=== PATIENT | male | born 1935 | race Caucasian/White ===

== ENCOUNTER 2016-08-15 08:12 | Emergency (ER) | payer MEDICARE, BC ==
[~2016-08-15] VITALS: Ht 165.1 cm; Wt 68.0 kg
[~2016-08-15 08:12] MED LIST: TIMO5DRO31 OP; VANC1FRO IV
[2016-08-15] MEDS ORDERED: IV NS 0.9% 1,000 ML ONE (08:37)
[2016-08-15] MEDS ORDERED: IV SET PRIMARY 1 EA INFUS.SET MC ONE (08:37)
[2016-08-15] MEDS ORDERED: IV NS 0.9% 1,000 ML BAG IV ONE (09:00)
[2016-08-15 09:02] LABS: BASOPHILS % (AUTO) 0.1 % (0.0-2.0); DIFF TOTAL % 100 %; EOSINOPHILS % (AUTO) 0.8 % (0.0-6.0); HEMATOCRIT 36 % (39-51); HEMOGLOBIN 12.2 g/dL (13.5-17.5); LYMPHOCYTES # (AUTO) 0.5 /CMM (0.8-4.8); LYMPHOCYTES % (AUTO) 7.6 % (20.0-44.0); MEAN CORPUSCULAR HEMOGLOBIN 32 PG (26.0-33.0); MEAN CORPUSCULAR HGB CONC 34 g/dl (31.0-36.0); MEAN CORPUSCULAR VOLUME 94 fL (80-96); MONOCYTES # (AUTO) 0.2 /CMM (0.1-1.30); MONOCYTES % (AUTO) 3.8 % (2.0-12.0); NEUTROPHILS # (AUTO) 5.6 /CMM (1.8-8.9); NEUTROPHILS % (AUTO) 87.7 % (43.0-81.0); PLATELET COUNT (AUTO) 146 /CMM (150-450); RED BLOOD CELL COUNT(AUTO) 3.88 MIL/uL (4.5-6.0); WHITE BLOOD COUNT (AUTO) 6.4 K/uL (4.3-11.0)
[2016-08-15 09:22] LABS: INR 1.01 (0.87-1.13); PROTHROMBIN TIME 10.9 SECS (9.5-12.7)
[2016-08-15] MEDS ORDERED: ACETAMINOPHEN 325 MG TABLET ONE (09:36)
[2016-08-15 09:42] LABS: ANION GAP 11 (5-14); CALCIUM, SERUM 8.6 mg/dL (8.5-10.1); CARBON DIOXIDE 26 mmol/L (21-32); CHLORIDE 107 mmol/L (98-107); CREATININE 1.2 mg/dL (0.6-1.3); GLUCOSE 101 mg/dL (74-106); POTASSIUM 4.4 mmol/L (3.5-5.1); SODIUM SERUM 139 mmol/L (136-145); UREA NITROGEN, BLOOD 17 mg/dL (7-18)
[2016-08-15 09:46] LABS: ADD UA MICROSCOPIC NO; KETONES,URINE Negative (NEGATIVE); LEUKOCYTE ESTERASE ,URINE Negative (NEGATIVE)
[2016-08-15 09:48] LABS: ALANINE AMINOTRANSFERASE 24 U/L (12-78); ALBUMIN 3.4 g/dL (3.4-5.0); ASPARTATE AMINOTRANSFERASE 26 U/L (15-37); BILIRUBIN,DIRECT 0.1 mg/dL (0.0-0.2); INDIRECT BILIRUBIN 0.9 mg/dL (0.0-1.1); TOTAL PROTEIN, SERUM 6.6 g/dL (6.4-8.2)
[2016-08-15 09:50] LABS: TROPONIN I < 0.017 ng/mL (0.00-0.056)
[2016-08-15] MEDS ORDERED: ACETAMINOPHEN 325 MG TABLET PO ONE (10:00)
[2016-08-15 10:16] VITALS: BP 178/80
== END 2016-08-15 10:18 | disposition home or self-care (01) ==
LOC: ER 08:15
DX: J06.9 Acute upper respiratory infection, unspecified (principal); H40.9 Unspecified glaucoma; Z88.6 Allergy status to analgesic agent; Z88.1 Allergy status to other antibiotic agents; Z88.2 Allergy status to sulfonamides; Z88.8 Allergy status to other drugs, medicaments and biological substances; R79.1 Abnormal coagulation profile
CPT/HCPCS: 36415; 71010; 80048; 80076; 81001; 83605; 84484; 85025; 85730; 87040 ×2; 87086; 93005; 96360; 99285; A4606; J7030; 81000-TC; Z7610

== ENCOUNTER 2017-04-19 16:31 | Emergency (ER) | payer MEDICARE, BC ==
[~2017-04-19] VITALS: Ht 172.7 cm; Wt 80.7 kg
[~2017-04-19 16:31] MED LIST changes: +TIMO5DRO31 EACHEYE; -TIMO5DRO31 OP
--- NOTE | 2017-04-19 17:00 | NUR ---
BIB C/O BILATERAL LOWER EXTREMITIES EDEMA X 2 WEEKS, ABDOMINAL PAIN AND DIARRHEA. SEEN BY MD FOR EVAL. PT REPORTS THAT HE WAS RECENTLY ON ABX. AT BS. SAFETY AND COMFORT MEASURES PROVIDED. WILL MONITOR.
--- NOTE | 2017-04-19 17:15 | NUR ---
IV ACCESS STARTED. BLOOD DRAWN FOR LABS.
[2017-04-19 17:33] LABS: BASOPHILS % (AUTO) 0.3 % (0.0-2.0); EOSINOPHILS # (AUTO) 0.1 /CMM (0.0-0.7); EOSINOPHILS % (AUTO) 1.2 % (0.0-6.0); HEMATOCRIT 33 % (39-51); HEMOGLOBIN 11.4 g/dL (13.5-17.5); LYMPHOCYTES # (AUTO) 0.7 /CMM (0.8-4.8); LYMPHOCYTES % (AUTO) 17.2 % (20.0-44.0); MEAN CORPUSCULAR HEMOGLOBIN 31 PG (26.0-33.0); MEAN CORPUSCULAR HGB CONC 35 g/dl (31.0-36.0); MEAN CORPUSCULAR VOLUME 90 fL (80-96); MONOCYTES # (AUTO) 0.3 /CMM (0.1-1.30); MONOCYTES % (AUTO) 7.1 % (2.0-12.0); NEUTROPHILS # (AUTO) 3.2 /CMM (1.8-8.9); NEUTROPHILS % (AUTO) 74.2 % (43.0-81.0); PLATELET COUNT (AUTO) 226 /CMM (150-450); RDW COEFFICIENT OF VARIATION 15.7 (11.5-15.0); RED BLOOD CELL COUNT(AUTO) 3.63 MIL/uL (4.5-6.0); WHITE BLOOD COUNT (AUTO) 4.3 K/uL (4.3-11.0)
[2017-04-19 17:36] LABS: APPEARANCE,URINE CLEAR (CLEAR); BILIRUBIN,URINE NEGATIVE (NEGATIVE); BLOOD, URINE NEGATIVE Ery/uL (NEGATIVE); COLOR,URINE YELLOW (YELLOW); KETONES,URINE NEGATIVE (NEGATIVE); LEUKOCYTE ESTERASE ,URINE NEGATIVE (NEGATIVE); NITRITE, URINE NEGATIVE (NEGATIVE); PROTEIN,URINE NEGATIVE (NEGATIVE); UGLUCOSE NEGATIVE (NEGATIVE); UROBILINOGEN,URINE 0.2 EU/dL (0.2)
[2017-04-19 17:43] LABS: CALCIUM, SERUM 8.5 mg/dL (8.5-10.1); CARBON DIOXIDE 24 mmol/L (21-32); CHLORIDE 108 mmol/L (98-107); CREATININE 1.3 mg/dL (0.6-1.3); GLUCOSE 95 mg/dL (74-106); SODIUM SERUM 141 mmol/L (136-145); UREA NITROGEN, BLOOD 19 mg/dL (7-18)
[2017-04-19 17:50] LABS: TROPONIN I < 0.017 ng/mL (0.00-0.056)
[2017-04-19 17:57] LABS: ALANINE AMINOTRANSFERASE 35 U/L (12-78); ALKALINE PHOSPHATASE 48 U/L (46-116); ASPARTATE AMINOTRANSFERASE 33 U/L (15-37); B-TYPE NATRIURETIC PEPTIDE 1132 PG/ML (0-125); BILIRUBIN,DIRECT 0.2 mg/dL (0.0-0.2); BILIRUBIN,TOTAL 0.8 mg/dL (0.2-1.0); TOTAL PROTEIN, SERUM 6.3 g/dL (6.4-8.2)
[2017-04-19 18:12] LABS: INR 1.09 (0.87-1.13); PROTHROMBIN TIME 11.3 SECS (9.5-12.7)
--- NOTE | 2017-04-19 18:51 | NUR ---
Patient discharged to home in stable condition. Written and verbal after care instructions given. Patient verbalizes understanding of instruction.IV removed. Catheter intact and site benign. Pressure and 4x4 applied to site. No bleeding noted.
[2017-04-19 18:52] VITALS: BP 130/88
== END 2017-04-19 18:52 | disposition home or self-care (01) ==
LOC: ER 16:33
DX: R60.0 Localized edema (principal); I10 Essential (primary) hypertension; R53.1 Weakness; Z88.6 Allergy status to analgesic agent; Z88.5 Allergy status to narcotic agent; Z88.2 Allergy status to sulfonamides; Z88.0 Allergy status to penicillin; Z88.8 Allergy status to other drugs, medicaments and biological substances
CPT/HCPCS: 36415; 71010; 80048; 80076; 81001; 83880; 84484; 85025; 85730; 93005; 99285; A4606; 81000-TC; Z7610

== ENCOUNTER 2017-04-28 10:31 | Outpatient (CLI) | payer MEDICARE, BC ==
[~2017-04-28 10:31] MED LIST changes: -VANC1FRO IV
== END 2017-04-28 23:59 | disposition home or self-care (01) ==
LOC: CT 10:31
DX: R42 Dizziness and giddiness (principal)
CPT/HCPCS: 70450-TC

== ENCOUNTER 2017-06-24 19:18 | Emergency (ER) | payer MEDICARE, BC ==
[~2017-06-24] VITALS: Ht 172.7 cm; Wt 80.7 kg
--- NOTE | 2017-06-24 19:42 | NUR ---
PT RECEIVED FROM HOME WITH FAMILY C/O ABDOMINAL PAIN X2 HOURS LLQ 5/10 ON MOVEMENT. NO SOB NOTED AT THIS TIME. PT IS A/O X4 VSS NAD.
[2017-06-24] MEDS ORDERED: HYDROMORPHONE INJ 2 MG/ML DISP.SYRIN ONE (19:57)
[2017-06-24 19:58] LABS: BASOPHILS % (AUTO) 0.5 % (0.0-2.0); EOSINOPHILS # (AUTO) 0.1 /CMM (0.0-0.7); EOSINOPHILS % (AUTO) 2.6 % (0.0-6.0); HEMATOCRIT 32 % (39-51); HEMOGLOBIN 10.7 g/dL (13.5-17.5); LYMPHOCYTES # (AUTO) 0.9 /CMM (0.8-4.8); LYMPHOCYTES % (AUTO) 24.2 % (20.0-44.0); MEAN CORPUSCULAR HEMOGLOBIN 31 PG (26.0-33.0); MEAN CORPUSCULAR HGB CONC 34 g/dl (31.0-36.0); MEAN CORPUSCULAR VOLUME 93 fL (80-96); MONOCYTES # (AUTO) 0.4 /CMM (0.1-1.30); MONOCYTES % (AUTO) 10.4 % (2.0-12.0); NEUTROPHILS # (AUTO) 2.2 /CMM (1.8-8.9); NEUTROPHILS % (AUTO) 62.3 % (43.0-81.0); PLATELET COUNT (AUTO) 152 /CMM (150-450); RDW COEFFICIENT OF VARIATION 13.9 (11.5-15.0); RED BLOOD CELL COUNT(AUTO) 3.41 MIL/uL (4.5-6.0); WHITE BLOOD COUNT (AUTO) 3.6 K/uL (4.3-11.0)
[2017-06-24] MEDS ORDERED: ONDANSETRON HCL/PF 4 MG/2 ML VIAL ONE (19:58)
[2017-06-24] MEDS ORDERED: ONDANSETRON HCL/PF 4 MG/2 ML VIAL IVP ONE (20:00)
[2017-06-24] MEDS ORDERED: IV NS 0.9% 500 ML BAG IV ONE (20:00)
[2017-06-24] MEDS ORDERED: HYDROMORPHONE 1 MG/1 ML DISP.SYRIN IV ONE (20:00)
[2017-06-24 20:13] LABS: CALCIUM, SERUM 9.4 mg/dL (8.5-10.1); CARBON DIOXIDE 28 mmol/L (21-32); CHLORIDE 106 mmol/L (98-107); CREATININE 1.2 mg/dL (0.6-1.3); GLUCOSE 115 mg/dL (74-106); POTASSIUM 4.2 mmol/L (3.5-5.1); SODIUM SERUM 139 mmol/L (136-145); UREA NITROGEN, BLOOD 21 mg/dL (7-18)
[2017-06-24 20:15] LABS: INR 0.97 (0.87-1.13); PROTHROMBIN TIME 10.1 SECS (9.5-12.7)
[2017-06-24 20:20] LABS: ALANINE AMINOTRANSFERASE 23 U/L (12-78); ALBUMIN 3.8 g/dL (3.4-5.0); ALKALINE PHOSPHATASE 71 U/L (46-116); ASPARTATE AMINOTRANSFERASE 26 U/L (15-37); BILIRUBIN,DIRECT 0.2 mg/dL (0.0-0.2); BILIRUBIN,TOTAL 0.9 mg/dL (0.2-1.0); LIPASE 167 U/L (73-393); TOTAL PROTEIN, SERUM 7.4 g/dL (6.4-8.2)
[2017-06-24] MEDS ORDERED: HYDROCODONE/APAP 5/325MG 1 EACH TABLET PO ONE (21:00)
--- NOTE | 2017-06-24 21:00 | NUR ---
PT IN STABLE CONDITION. PASSED WALKING TEST
[2017-06-24] MEDS ORDERED: HYDROCODONE/APAP 5/325MG 1 EACH TABLET ONE (21:05)
--- NOTE | 2017-06-24 21:13 | NUR ---
D/C PAPERWORK GIVEN FOR D/C
[2017-06-24 21:14] VITALS: BP 174/79
== END 2017-06-24 21:19 | disposition home or self-care (01) ==
LOC: ER 19:23
DX: R10.32 Left lower quadrant pain (principal); H40.9 Unspecified glaucoma; Z88.0 Allergy status to penicillin; Z88.1 Allergy status to other antibiotic agents; Z88.2 Allergy status to sulfonamides; Z88.8 Allergy status to other drugs, medicaments and biological substances
CPT/HCPCS: 36415; 74176; 80048; 80076; 83690; 85025; 85730; 96361; 96374; 96375; 99285; A4606; J1170; J2405; J7040; Z7610

== ENCOUNTER 2017-07-30 16:14 | Inpatient (IN) | payer MEDICARE, BC ==
[~2017-07-30] VITALS: Ht 172.7 cm; Wt 79.4 kg
--- NOTE | 2017-07-30 16:53 | NUR ---
PT TO ED ROOM 04. BILATERAL LOWER EXTREMITY SWELLING WITH PAIN TO L LEG. FLU SYMPTOMS, COUGH, CONGESTION, FEVER X 4 DAYS. CHANGED TO GOWN. SIDE RAILS UP. HOB ELEVATED. CONNECTED TO MONITOR. AWAITING EVALUATION BY ER PROVIDER.
[2017-07-30] MEDS ORDERED: VANCOMYCIN 1 GM in IV D5W 250 ML IV ONE (17:00)
--- NOTE | 2017-07-30 17:00 | NUR ---
R A CG 18 IV STARTED. BLOOD TESTS DRAWN AND SEND TO LAB.
[2017-07-30 17:11] LABS: BASOPHILS % (AUTO) 0.5 % (0.0-2.0); EOSINOPHILS # (AUTO) 0.1 /CMM (0.0-0.7); EOSINOPHILS % (AUTO) 2.2 % (0.0-6.0); HEMATOCRIT 31 % (39-51); HEMOGLOBIN 10.6 g/dL (13.5-17.5); LYMPHOCYTES # (AUTO) 0.5 /CMM (0.8-4.8); LYMPHOCYTES % (AUTO) 12.2 % (20.0-44.0); MEAN CORPUSCULAR HEMOGLOBIN 31 PG (26.0-33.0); MEAN CORPUSCULAR HGB CONC 34 g/dl (31.0-36.0); MEAN CORPUSCULAR VOLUME 90 fL (80-96); MONOCYTES # (AUTO) 0.4 /CMM (0.1-1.30); MONOCYTES % (AUTO) 9.8 % (2.0-12.0); NEUTROPHILS # (AUTO) 3.4 /CMM (1.8-8.9); NEUTROPHILS % (AUTO) 75.3 % (43.0-81.0); PLATELET COUNT (AUTO) 168 /CMM (150-450); RDW COEFFICIENT OF VARIATION 13.3 (11.5-15.0); RED BLOOD CELL COUNT(AUTO) 3.41 MIL/uL (4.5-6.0); WHITE BLOOD COUNT (AUTO) 4.4 K/uL (4.3-11.0)
[2017-07-30 17:27] LABS: CALCIUM, SERUM 9.1 mg/dL (8.5-10.1); CARBON DIOXIDE 26 mmol/L (21-32); CHLORIDE 102 mmol/L (98-107); CREATININE 1.2 mg/dL (0.6-1.3); GLUCOSE 110 mg/dL (74-106); POTASSIUM 4.2 mmol/L (3.5-5.1); SODIUM SERUM 135 mmol/L (136-145); UREA NITROGEN, BLOOD 19 mg/dL (7-18)
[2017-07-30 17:37] LABS: ALANINE AMINOTRANSFERASE 28 U/L (12-78); ALBUMIN 3.4 g/dL (3.4-5.0); ALKALINE PHOSPHATASE 70 U/L (46-116); ASPARTATE AMINOTRANSFERASE 24 U/L (15-37); B-TYPE NATRIURETIC PEPTIDE 812 PG/ML (0-125); BILIRUBIN,DIRECT 0.3 mg/dL (0.0-0.2); TOTAL PROTEIN, SERUM 7.5 g/dL (6.4-8.2)
[2017-07-30] MEDS ORDERED: PRED1DRO RIGHTEYE (17:41)
--- NOTE | 2017-07-30 18:46 | NUR ---
REPORT GIVEN TO 3W CHARGE Adilson KAMARA. PATIENT WILL GO TO ROOM 327-2 MS AFTER 1914 (BED IS NOT AVAILABLE YET).
--- NOTE | 2017-07-30 19:06 | NUR ---
Patient is resting comfortably in bed with eyes closed. Easily aroused. VSS
[2017-07-30] MEDS ORDERED: IV NS 0.9% 1,000 ML IV PRN (19:21)
--- NOTE | 2017-07-30 19:25 | NUR ---
EXPERIMENTAL DISPLAY BUILDER NOTE: RECEIVE PT FROM [facility] [employer] [facility], A/OX3. STABLE, NO ACUTE DISTRESS NOTED. BREATHING EVEN AND UNLABORED, NO SOB NOTED. BED LOCKED AND IN LOWEST POSITION, CALL LIGHT IN REACH. WILL CONTINUE TO MONITOR.
[2017-07-30 19:30] VITALS: BP 173/85
[2017-07-30] MEDS ORDERED: ZOLPIDEM TARTRATE 5 MG TABLET PO PRN (19:30)
[2017-07-30] MEDS ORDERED: HYDROCODONE/APAP 5/325MG 1 EACH TABLET PO PRN (19:30)
[2017-07-30] MEDS ORDERED: ONDANSETRON HCL/PF 4 MG/2 ML VIAL IVP PRN (19:30)
[2017-07-30] MEDS ORDERED: MAG HYDROX/AL HYDROX/SIMETH 30 ML UDC PO PRN (19:30)
[2017-07-30] MEDS ORDERED: MAGNESIUM HYDROXIDE 30 ML UDC PO PRN (19:30)
[2017-07-30] MEDS ORDERED: Z GUARD REMEDY 2 OZ OINT TP PRN (19:30)
[2017-07-30] MEDS ORDERED: ACETAMINOPHEN 325 MG TABLET PO PRN (19:30)
--- NOTE | 2017-07-30 19:37 | NUR ---
TRANSFERRED PATIENT TO [facility]. NO INCIDENT NOTED.
[2017-07-30 20:00] VITALS: BP 173/85
[2017-07-30] MEDS ORDERED: CLONIDINE HCL 0.1 MG TABLET PO ONE (20:10)
[2017-07-30] MEDS ORDERED: FEE PK DOSING 1 MIN EA MC ONE (20:30)
[2017-07-30] MEDS: TIMOLOL 0.5% SOLN OPHTH 5 ML BOTTLE EACHEYE SCH (20:53)
[2017-07-30] MEDS: ENOXAPARIN SODIUM 40 MG/0.4 ML DISP.SYRIN SQ SCH (20:53)
[2017-07-30] MEDS: prednisoLONE ACET 1% OPHT DROP 5 ML BOTTLE RIGHTEYE SCH (21:15)
[2017-07-30 21:30] VITALS: BP 148/77
--- NOTE | 2017-07-30 22:00 | NUR ---
PT REFUSED LOVENOX NON ADMINISTRATION DESPITE EXPLAINING RISKS AND BENEFITS OFFERED 3 TIMES PT STILL REFUSED DR. HATFIELD MADE AWARE. PT A/OX 4
[2017-07-31] VITALS: BP_SYST 155; BP_SYST 163; BP_DIAS 74; BP_DIAS 76
[2017-07-31 04:00] VITALS: BP 129/67
[2017-07-31] MEDS ORDERED: VANCOMYCIN 1 GM VIAL ONE (05:35)
[2017-07-31] MEDS: VANCOMYCIN HCL 0.75 GM in IV D5W 250 ML IV SCH ×2 (05:42→17:57)
--- NOTE | 2017-07-31 06:24 | NUR ---
MS RN CLOSING NOTES PT COMFORTABLY ASLEEP AND EASILY AWAKEN, TOLERATING ROOM AIR 02 SAT 99% IN STABLE CONDITION. NOT IN FORM OF DISTRESS, RESPIRATION EVEN AND UNLABORED. KEPT CLEAN AND DRY AND COMFORTABLE, ALL NURSING CARE RENDERED. NEEDS ATTENDED AND ANTICIPATED, FREQUENT VISUAL CHECK DONE FOR SAFETY EVERY 2 HOURS. NO COMPLAINS OF PAIN. ON LOW BED AT ALL TIMES TO ENSURE SAFETY. SAFE HAZARD FREE ENVIRONMENT PROVIDED. CALL LIGHT WITHIN EASY TO REACH. WILL ENDORSE NEXT SHIFT CONTINUITY OF CARE Addendum: 07/31/17 at 0625 by DARYL MANCERA RN ON TELE [id number]
--- NOTE | 2017-07-31 08:00 | NUR ---
ROOM SERVICE SERVER OPENING NOTES. PT RECEIVED A&0X3 AWAKE AND RESTING LOW SEMI FOWLERS. PT REPORTING SOME SOD. HOB ELEVATED AND O2 APPLIED VIA NC AT 2LPM, SAO2 WNL, LUNGS AUSCULTATED CLEAR. PT REPORTING MINOR GENERALIZED PAIN. PT WITH IVC AT R AC G#18 INTACT AND SALINE FLUSH PATENT. PT UNHAPPY WITH IVC AND BLOOD DRAWS R/T HARD STICK AND POSTURAL IVC. PT BED IN LOWEST LOCKED POSITION WITH HANDRAILSX2 AND CALL FULLER WITHIN REACH. PT BRIEFED ON TODAY'S POC AND IS WITHOUT CONCERN OR COMPLAINT AT THIS TIME.
[2017-07-31 08:46] LABS: BASOPHILS % (AUTO) 0.5 % (0.0-2.0); EOSINOPHILS # (AUTO) 0.1 /CMM (0.0-0.7); EOSINOPHILS % (AUTO) 2.2 % (0.0-6.0); HEMATOCRIT 31 % (39-51); HEMOGLOBIN 10.2 g/dL (13.5-17.5); LYMPHOCYTES # (AUTO) 0.6 /CMM (0.8-4.8); LYMPHOCYTES % (AUTO) 13.6 % (20.0-44.0); MEAN CORPUSCULAR HEMOGLOBIN 31 PG (26.0-33.0); MEAN CORPUSCULAR HGB CONC 34 g/dl (31.0-36.0); MEAN CORPUSCULAR VOLUME 93 fL (80-96); MONOCYTES # (AUTO) 0.5 /CMM (0.1-1.30); MONOCYTES % (AUTO) 10.9 % (2.0-12.0); NEUTROPHILS # (AUTO) 3.3 /CMM (1.8-8.9); NEUTROPHILS % (AUTO) 72.8 % (43.0-81.0); PLATELET COUNT (AUTO) 168 /CMM (150-450); RDW COEFFICIENT OF VARIATION 14.1 (11.5-15.0); RED BLOOD CELL COUNT(AUTO) 3.29 MIL/uL (4.5-6.0); WHITE BLOOD COUNT (AUTO) 4.5 K/uL (4.3-11.0)
[2017-07-31 08:48] VITALS: BP 155/81
[2017-07-31] MEDS: TIMOLOL 0.5% SOLN OPHTH 5 ML BOTTLE EACHEYE SCH ×2 (08:59→21:12)
[2017-07-31] MEDS ORDERED: FUROSEMIDE 40 MG/4 ML VIAL IV SCH (09:00)
[2017-07-31 09:08] LABS: CARBON DIOXIDE 24 mmol/L (21-32); CHLORIDE 103 mmol/L (98-107); CREATININE 1.2 mg/dL (0.6-1.3); GLUCOSE 101 mg/dL (74-106); MAGNESIUM 2.3 mg/dL (1.8-2.4); PHOSPHORUS 4.2 mg/dL (2.5-4.9); POTASSIUM 4.6 mmol/L (3.5-5.1); SODIUM SERUM 138 mmol/L (136-145); UREA NITROGEN, BLOOD 16 mg/dL (7-18)
--- NOTE | 2017-07-31 09:48 | NUR ---
MSRN NOTES. TELE D/C PER .
[2017-07-31 10:07] LABS: CHOLESTEROL 132 mg/dL (<200); HDL CHOLESTEROL 30 mg/dL (40-60); LDL 90 mg/dL (0-99); TRIGLYCERIDES 90 mg/dL (30-150)
[2017-07-31 16:08] VITALS: BP 156/81
--- NOTE | 2017-07-31 18:52 | NUR ---
MSRN CLOSING NOTES. PT REMAINS A&0X3, PT TOLERATING ROOM AIR AND DENIES PAIN. PT WITH IVC AT L AC INTACT AND OPERATIONAL, IVC POSTURAL. PT WITH MIDLINE ORDER PENDING BUT PT PLANNING TO LEAVE AMA IN AM. BED IN LOWEST LOCKED POSITION WITH HANDRAILSX2 AND CALL FULLER WITHIN REACH. ALL DAY NURSE DUTIES ATTENDED TO. PT WITHOUT CONCERN OR COMPLAINT AT THIS TIME. WILL ENDORSE TO NIGHT NURSE.
--- NOTE | 2017-07-31 19:00 | NUR ---
MS RN NOTE: RECEIVE PT IN BED, A/OX3. STABLE, NO ACUTE DISTRESS NOTED. BREATHING EVEN AND UNLABORED, NO SOB NOTED. BED LOCKED AND IN LOWEST POSITION, CALL LIGHT IN REACH. WILL CONTINUE TO MONITOR.
[2017-07-31 20:00] VITALS: BP_SYST 156; BP_SYST 160; BP_DIAS 74; BP_DIAS 86
[2017-07-31] MEDS: ENOXAPARIN SODIUM 40 MG/0.4 ML DISP.SYRIN SQ SCH (21:00)
[2017-07-31] MEDS: prednisoLONE ACET 1% OPHT DROP 5 ML BOTTLE RIGHTEYE SCH (21:12)
--- NOTE | 2017-07-31 22:37 | NUR ---
PT REFUSED LOVENOX NON ADMINISTRATION DESPITE EXPLAINING RISKS AND BENEFITS OFFERED 3 TIMES PT STILL REFUSED MD DATA CONVERSION OPERATOR MADE AWARE
[2017-08-01 04:51] VITALS: BP 151/74
[2017-08-01 05:48] LABS: BASOPHILS % (AUTO) 0.5 % (0.0-2.0); EOSINOPHILS # (AUTO) 0.1 /CMM (0.0-0.7); EOSINOPHILS % (AUTO) 1.9 % (0.0-6.0); HEMATOCRIT 33 % (39-51); HEMOGLOBIN 11.3 g/dL (13.5-17.5); LYMPHOCYTES # (AUTO) 0.8 /CMM (0.8-4.8); LYMPHOCYTES % (AUTO) 12.9 % (20.0-44.0); MEAN CORPUSCULAR HEMOGLOBIN 31 PG (26.0-33.0); MEAN CORPUSCULAR HGB CONC 34 g/dl (31.0-36.0); MEAN CORPUSCULAR VOLUME 92 fL (80-96); MONOCYTES # (AUTO) 0.7 /CMM (0.1-1.30); MONOCYTES % (AUTO) 11.1 % (2.0-12.0); NEUTROPHILS # (AUTO) 4.3 /CMM (1.8-8.9); NEUTROPHILS % (AUTO) 73.6 % (43.0-81.0); PLATELET COUNT (AUTO) 219 /CMM (150-450); RDW COEFFICIENT OF VARIATION 14.2 (11.5-15.0); RED BLOOD CELL COUNT(AUTO) 3.63 MIL/uL (4.5-6.0); WHITE BLOOD COUNT (AUTO) 5.9 K/uL (4.3-11.0)
[2017-08-01 06:07] LABS: ALANINE AMINOTRANSFERASE 24 U/L (12-78); ALBUMIN 3.1 g/dL (3.4-5.0); ALKALINE PHOSPHATASE 67 U/L (46-116); ASPARTATE AMINOTRANSFERASE 23 U/L (15-37); BILIRUBIN,TOTAL 0.8 mg/dL (0.2-1.0); CALCIUM, SERUM 8.9 mg/dL (8.5-10.1); CARBON DIOXIDE 27 mmol/L (21-32); CHLORIDE 104 mmol/L (98-107); CREATININE 1.3 mg/dL (0.6-1.3); GLUCOSE 101 mg/dL (74-106); MAGNESIUM 2.1 mg/dL (1.8-2.4); PHOSPHORUS 3.9 mg/dL (2.5-4.9); SODIUM SERUM 141 mmol/L (136-145); TOTAL PROTEIN, SERUM 7.3 g/dL (6.4-8.2); UREA NITROGEN, BLOOD 18 mg/dL (7-18)
[2017-08-01 06:11] LABS: VANCOMYCIN,TROUGH 14 ug/ml (12-20)
[2017-08-01] MEDS: VANCOMYCIN HCL 0.75 GM in IV D5W 250 ML IV SCH (06:17)
--- NOTE | 2017-08-01 06:30 | NUR ---
MS RN CLOSING NOTES PT COMFORTABLY ASLEEP AND EASILY AWAKEN, 98% R.A IN STABLE CONDITION. NOT IN FORM OF DISTRESS, RESPIRATION EVEN AND UNLABORED. KEPT CLEAN AND DRY AND COMFORTABLE, ALL NURSING CARE RENDERED. NEEDS ATTENDED AND ANTICIPATED, FREQUENT VISUAL CHECK DONE FOR SAFETY EVERY 2 HOURS. NO COMPLAINS OF PAIN. ON LOW BED AT ALL TIMES TO ENSURE SAFETY. SAFE HAZARD FREE ENVIRONMENT PROVIDED. CALL LIGHT WITHIN EASY TO REACH. WILL ENDORSE NEXT SHIFT CONTINUITY OF CARE
--- NOTE | 2017-08-01 07:43 | NUR ---
MS RN OPENING NOTE RECEIVED BEDSIDE SBAR REPORT ON THE PATIENT. PATIENT IS A/O X3, AWAKE AND RESPONSIVE. DENIES PAIN/DISCOMFORT AT THIS TIME. CHEST IS RISING EQUALLY BILATERALLY. SPO2 99% ON RA. PATIENT IS IN BED. BED IS LOCKED, IN LOWEST POSITION, SIDE RAILS UP X3, BED ALARM IS ON. CALL LIGHT WITHIN REACH. EDUCATED THE PATIENT TO CALL FOR ASSISTANCE USING THE CALL LIGHT. ALL NEEDS ARE MET AT THIS TIME. WILL CONTINUE TO ASSESS/MONITOR THROUGHOUT THE SHIFT.
[2017-08-01 08:00] VITALS: BP 138/74
[2017-08-01 08:33] LABS: IRON, SERUM 27 ug/dl (50-175); TOTAL IRON BINDING CAPACITY 231 ug/dl (250-450)
[2017-08-01] MEDS: TIMOLOL 0.5% SOLN OPHTH 5 ML BOTTLE EACHEYE SCH (08:58)
--- NOTE | 2017-08-01 08:58 | NUR ---
PATIENT REFUSED LASIX AND KDUR. RISKS AND BENEFITS DISCUSSED. PATIENT REFUSED STATING " I DONT WANT TO GO TO BATHROOM ALL THE TIME, I DONT WANT TO USE THE URINAL, I WANT TO GO HOME".
--- NOTE | 2017-08-01 08:59 | NUR ---
PATIENT REPORTED BURNING SENSATION AT THE IV SITE. IV REMOVED. NO S/S OF INFILTRATION. OCLUSSIVE DRESSING APPLIED. PATIENT TOLERATED PROCEDURE WELL. PATIENT REFUSED INSERTING A NEW IV. WILL INFORM
[2017-08-01] MEDS ORDERED: FUROSEMIDE 40 MG TABLET PO SCH (09:00)
[2017-08-01] MEDS ORDERED: POTASSIUM CHLORIDE 20 MEQ TAB.PRT.SR PO SCH (09:00)
--- NOTE | 2017-08-01 09:05 | NUR ---
DR BOTELLO INFORMED PATIENT HAS NO IV ACCESS. PATIENT REFUSED REINSERTION OF A NEW IV LINE. PATIENT WILL BE DISCHARGED TODAY TO GO HOME. NO NEW IV ACCESS REQUIRED AT THIS TIME.
[2017-08-01 09:57] LABS: FERRITIN 274 ng/mL (8-388)
[2017-08-01] MEDS ORDERED: SULF1TAB48 PO (11:58)
[2017-08-01] MEDS ORDERED: LEVO750T21 GT (11:59)
--- NOTE | 2017-08-01 12:19 | NUR ---
DISCHARGE ORDER RECEIVED. DISCHARGE PAPERWORK COMPLETED AND HANDED TO THE PATIENT. DISCHARGE EDUCATION PROVIDED VIA TEACH BACK METHOD. PATIENT WAS ABLE TO VERBALIZED FULL UNDERSTANDING OF DISCHARGE INSTRUCTIONS. BLE PITTING EDEMA PRESENT. PICTURE TAKEN AND PLACED THE CHART. PATIENT DENIES PAIN/DISCOMFORT. APO2 98% ON RA. VS WNL. AMBULATORY. NO IV ACCESS. AMBULATORY . PRESENTS WITH STEADY GAIT. ALL BELONGINGS ARE ACCOUNTED FOR. PATIENT IS TO LEAVING THE HOSPITAL VIA PRIVATE CAR.
--- NOTE | 2017-08-01 12:49 | NUR ---
PATIENT LEFT THE UNIT IN STABLE CONDITION.
== END 2017-08-01 12:30 | disposition home health service (06) | DRG 602 ==
LOC: ER 16:19 → TELE 18:52 → MED 07-31 09:13
PROVIDERS: ADMIT Internal Medicine; ATTEND Internal Medicine
DX: L03.116 Cellulitis of left lower limb (principal); N17.0 Acute kidney failure with tubular necrosis; I50.32 Chronic diastolic (congestive) heart failure; E87.1 Hypo-osmolality and hyponatremia; L03.115 Cellulitis of right lower limb; D63.8 Anemia in other chronic diseases classified elsewhere; E88.09 Other disorders of plasma-protein metabolism, not elsewhere classified; Z87.891 Personal history of nicotine dependence; I11.0 Hypertensive heart disease with heart failure
CPT/HCPCS: 36415; 71045-TC; 80048-TC; 80053-TC; 80061-TC; 80076-TC; 80202-TC; 82728-TC; 83540-TC; 83605-TC; 83735-TC; 83880; 84100-TC; 84484-TC; 85025-TC; 85730-TC; 87040-TC; 87081-TC; 93307-TC; 93970-TC; 94799-TC; A4606; J1940; J3370; J7030; J7060; Z7610

== ENCOUNTER 2017-08-04 08:52 | Outpatient (CLI) | payer MEDICARE, BC ==
[~2017-08-04 08:52] MED LIST changes: +LEVO750T21 GT; +PRED1DRO RIGHTEYE
== END 2017-08-04 23:59 | disposition home or self-care (01) ==
LOC: RAD 08:52
DX: J98.11 Atelectasis (principal); J90 Pleural effusion, not elsewhere classified; I10 Essential (primary) hypertension
CPT/HCPCS: 71046

== ENCOUNTER 2017-08-06 10:03 | Inpatient (IN) | payer MEDICARE, BC ==
[~2017-08-06] VITALS: Ht 172.7 cm; Wt 81.0 kg
--- NOTE | 2017-08-06 10:07 | NUR ---
AAOX3, BB : SOB C 2 DAYS, SEVERE TODAY. NON-RADIATING CHEST PAIN. RESP IS SLIGHTLY LABORED. SKIN IS WARM AND DRY. PLACED ON THE MONITOR. DR ESPINO AT BS FOR EVAL.
[2017-08-06] MEDS ORDERED: NITROGLYCERIN PACKET 1 GM PACKET TD ONE (10:30)
[2017-08-06] MEDS ORDERED: FUROSEMIDE 40 MG/4 ML VIAL IV ONE (10:30)
[2017-08-06] MEDS ORDERED: KETO5DRO83 RIGHTEYE (10:32)
[2017-08-06] MEDS ORDERED: CLIN300C11 PO (10:32)
[2017-08-06] MEDS ORDERED: FUROSEMIDE 40 MG/4 ML VIAL ONE (10:37)
[2017-08-06] MEDS ORDERED: NITROGLYCERIN PACKET 1 GM PACKET ONE ×2 (10:38→10:45)
[2017-08-06 10:46] LABS: BASOPHILS % (AUTO) 0.3 % (0.0-2.0); EOSINOPHILS # (AUTO) 0.1 /CMM (0.0-0.7); EOSINOPHILS % (AUTO) 1.1 % (0.0-6.0); HEMATOCRIT 28 % (39-51); HEMOGLOBIN 9.5 g/dL (13.5-17.5); LYMPHOCYTES # (AUTO) 0.4 /CMM (0.8-4.8); LYMPHOCYTES % (AUTO) 7.8 % (20.0-44.0); MEAN CORPUSCULAR HEMOGLOBIN 30 PG (26.0-33.0); MEAN CORPUSCULAR HGB CONC 34 g/dl (31.0-36.0); MEAN CORPUSCULAR VOLUME 89 fL (80-96); MONOCYTES # (AUTO) 0.2 /CMM (0.1-1.30); MONOCYTES % (AUTO) 4.9 % (2.0-12.0); NEUTROPHILS # (AUTO) 3.9 /CMM (1.8-8.9); NEUTROPHILS % (AUTO) 85.9 % (43.0-81.0); PLATELET COUNT (AUTO) 239 /CMM (150-450); RDW COEFFICIENT OF VARIATION 12.9 (11.5-15.0); RED BLOOD CELL COUNT(AUTO) 3.17 MIL/uL (4.5-6.0); WHITE BLOOD COUNT (AUTO) 4.6 K/uL (4.3-11.0)
[2017-08-06 10:57] LABS: CALCIUM, SERUM 8.7 mg/dL (8.5-10.1); CARBON DIOXIDE 25 mmol/L (21-32); CHLORIDE 96 mmol/L (98-107); CREATININE 1.2 mg/dL (0.6-1.3); GLUCOSE 112 mg/dL (74-106); POTASSIUM 4.5 mmol/L (3.5-5.1); SODIUM SERUM 128 mmol/L (136-145); UREA NITROGEN, BLOOD 18 mg/dL (7-18)
[2017-08-06 11:01] LABS: INR 1.06 (0.85-1.15)
[2017-08-06 11:05] LABS: TROPONIN I < 0.017 ng/mL (0.00-0.056)
[2017-08-06 11:07] LABS: APPEARANCE,URINE Clear (CLEAR); BILIRUBIN,URINE Negative (NEGATIVE); BLOOD, URINE Negative Ery/uL (NEGATIVE); COLOR,URINE Yellow (YELLOW); KETONES,URINE Negative (NEGATIVE); LEUKOCYTE ESTERASE ,URINE Negative (NEGATIVE); NITRITE, URINE Negative (NEGATIVE); PROTEIN,URINE Negative (NEGATIVE); UGLUCOSE Negative (NEGATIVE); UROBILINOGEN,URINE 0.2 EU/dL (0.2)
[2017-08-06 11:09] LABS: ALANINE AMINOTRANSFERASE 17 U/L (12-78); ALBUMIN 2.7 g/dL (3.4-5.0); ALKALINE PHOSPHATASE 65 U/L (46-116); ASPARTATE AMINOTRANSFERASE 21 U/L (15-37); B-TYPE NATRIURETIC PEPTIDE 551 PG/ML (0-125); BILIRUBIN,DIRECT 0.2 mg/dL (0.0-0.2); BILIRUBIN,TOTAL 0.7 mg/dL (0.2-1.0); TOTAL PROTEIN, SERUM 6.9 g/dL (6.4-8.2)
--- NOTE | 2017-08-06 11:45 | NUR ---
TELE 328-2
[2017-08-06] MEDS ORDERED: IOHEXOL-350 100 ML VIAL IV ONE (11:56)
--- NOTE | 2017-08-06 12:35 | NUR ---
Patient is resting comfortably in bed with eyes closed. Easily aroused. VSS
[2017-08-06 13:03] LABS: THYROID STIMULATING HORMONE 4.42 uIU/mL (0.358-3.74)
--- NOTE | 2017-08-06 13:48 | NUR ---
CALLED [employer] MERCHANDISE SHOPPER WAS PAGED.
[2017-08-06] MEDS ORDERED: AZTREONAM 1 G in IV NS 0.9% 100 ML IV STA (13:55)
[2017-08-06] MEDS ORDERED: VANCOMYCIN 1 GM in IV D5W 250 ML IV ONE (14:00)
--- NOTE | 2017-08-06 14:07 | NUR ---
REPORT GIVEN TO WEN LUCIANO FOR SUZIE TELE 328-2
[2017-08-06] MEDS ORDERED: ACETAMINOPHEN ES 500 MG TABLET ONE (14:18)
[2017-08-06] MEDS ORDERED: AZTREONAM 1 G VIAL IM SCH (14:30)
[2017-08-06] MEDS ORDERED: ACETAMINOPHEN ES 500 MG TABLET PO PRN (14:30)
[2017-08-06] MEDS ORDERED: Z GUARD REMEDY 2 OZ OINT TP PRN (15:00)
[2017-08-06] MEDS ORDERED: MAGNESIUM HYDROXIDE 30 ML UDC PO PRN (15:00)
[2017-08-06] MEDS ORDERED: HYDROCODONE/APAP 5/325MG 1 EACH TABLET PO PRN (15:00)
[2017-08-06] MEDS ORDERED: ONDANSETRON HCL/PF 4 MG/2 ML VIAL IVP PRN (15:00)
[2017-08-06] MEDS ORDERED: MAG HYDROX/AL HYDROX/SIMETH 30 ML UDC PO PRN (15:00)
--- NOTE | 2017-08-06 15:30 | NUR ---
M/S RN - Admission Received patient A/O x 4, denies SOB, no c/o chest pain, not in any form of distress, admitted for large left pleural effusion. Patient was seen by Dr. Ortiz and Dr. Alberto in the ER. Patient oriented to room and use of call light. All belongings accounted. Skin assessment done, noted with BLE swelling and redness, photo taken, skin is intact on sacral area, refused photo. Azactam IV running on the LAC with no signs of infiltration, left hand saline lock is patent, intact, flushing well. Admission orders noted and carried out. Pharmacy notified of Ferrlecit medication. Patient and at bedside updated on plan of care.
[2017-08-06] MEDS: VALSARTAN 80 MG TABLET PO SCH (15:41)
[2017-08-06 16:00] VITALS: BP 125/75
[2017-08-06] MEDS ORDERED: CLINDAMYCIN IV RTU IN D5W 600 MG/50 ML PIGGYBACK IV ONE (16:00)
[2017-08-06] MEDS ORDERED: AZTREONAM 1 G in IV NS 0.9% 100 ML IV SCH (16:00)
[2017-08-06] MEDS ORDERED: FEE PK DOSING 1 MIN EA MC ONE (16:12)
[2017-08-06] MEDS ORDERED: CLINDAMYCIN 600 MG in IV NS 0.9% 50 ML IV ONE (18:00)
[2017-08-06] MEDS: LACTOBACILLUS RHAMNOSUS GG 1 EACH CAP.SPRINK PO SCH (18:04)
[2017-08-06] MEDS: TIMOLOL 0.25% SOL OPHTH 10 ML BOTTLE EACHEYE SCH (18:04)
[2017-08-06] MEDS: SOD FERRIC GLUC 125 MG in IV NS 0.9% 100 ML IV SCH (18:05)
--- NOTE | 2017-08-06 18:42 | NUR ---
M/S RN - Notes No significant change in condition seen. Consent was signed by the patient for US guided thoracentesis of the left lung. All needs attended and met. Will continue with current medical management.
--- NOTE | 2017-08-06 19:44 | NUR ---
RN OPENING NOTES PATIENT IS IN BED, ALERT AND ORIENTED X3. VS STABLE. NO C/O PAIN OR DISCOMFORT. RESPIRATIONS EVEN AND UNLABORED. NO SOB NOTED. PATIENT IS ON NC 2L. IV ACCESS ON LEFT AC 20 G SL PATENT AND INTACT, NO REDNESS OR INFILTRATION NOTED. BED IN LOW AND LOCKED POSITION, SIDE RAILS X2. CALL LIGHT WITHIN EASY REACH. WILL CONTINUE TO MONITOR AND ASSESS DURING THE SHIFT.
[2017-08-06 20:00] VITALS: BP 135/80
[2017-08-06] MEDS: AZTREONAM 1 G in IV NS 0.9% 100 ML IV SCH (20:44)
[2017-08-06] MEDS ORDERED: prednisoLONE ACET 1% OPHT DROP 5 ML BOTTLE RIGHTEYE SCH (22:00)
[2017-08-06] MEDS ORDERED: IPRATROPIUM NEB FS 0.5 MG/2.5 ML AMPUL.NEB NEB PRN (22:30)
[2017-08-06] MEDS ORDERED: ALBUTEROL FS 2.5 MG/0.5 ML VIAL.NEB NEB PRN (22:30)
[2017-08-07] VITALS: BP 130/78
[2017-08-07 04:00] VITALS: BP 128/68
[2017-08-07] MEDS: AZTREONAM 1 G in IV NS 0.9% 100 ML IV SCH ×3 (04:28→20:59)
[2017-08-07] MEDS: VANCOMYCIN 0.75 GM in IV D5W 250 ML IV SCH ×2 (05:31→16:33)
[2017-08-07] MEDS: ACETAMINOPHEN 325 MG TABLET PO PRN ×2 (05:45→21:10)
--- NOTE | 2017-08-07 07:30 | NUR ---
RN CLOSING NOTES PATIENT IS SLEEPING IN BED, ALERT AND ORIENTED X3. VS STABLE. NO C/O PAIN OR DISCOMFORT NOTED. RESPIRATIONS EVEN AND UNLABORED. NO SOB NOTED. PATIENT IS ON NC 2L. IV ACCESS ON LEFT AC 20 G SL PATENT AND INTACT, NO REDNESS OR INFILTRATION NOTED. ALL NEEDS ARE MET AND MEDICATIONS GIVEN PER MD ORDER. PATIENT IS HAVING THORACENTESIS IN THE MORNING. CONSENT SIGNED. BED IN LOW AND LOCKED POSITION, SIDE RAILS X2. CALL LIGHT WITHIN EASY REACH. WILL ENDORSE TO RN DAY SHIFT FOR SUZIE.
[2017-08-07 07:40] LABS: CARBON DIOXIDE 28 mmol/L (21-32); CHLORIDE 100 mmol/L (98-107); CREATININE 1.3 mg/dL (0.6-1.3); GLUCOSE 123 mg/dL (74-106); MAGNESIUM 2.3 mg/dL (1.8-2.4); POTASSIUM 4.3 mmol/L (3.5-5.1); SODIUM SERUM 134 mmol/L (136-145); UREA NITROGEN, BLOOD 15 mg/dL (7-18)
[2017-08-07 07:42] LABS: BASOPHILS % (AUTO) 0.5 % (0.0-2.0); EOSINOPHILS # (AUTO) 0.1 /CMM (0.0-0.7); EOSINOPHILS % (AUTO) 1.5 % (0.0-6.0); HEMATOCRIT 29 % (39-51); HEMOGLOBIN 9.7 g/dL (13.5-17.5); LYMPHOCYTES # (AUTO) 0.6 /CMM (0.8-4.8); LYMPHOCYTES % (AUTO) 11.9 % (20.0-44.0); MEAN CORPUSCULAR HEMOGLOBIN 31 PG (26.0-33.0); MEAN CORPUSCULAR HGB CONC 34 g/dl (31.0-36.0); MEAN CORPUSCULAR VOLUME 90 fL (80-96); MONOCYTES # (AUTO) 0.4 /CMM (0.1-1.30); MONOCYTES % (AUTO) 7.6 % (2.0-12.0); NEUTROPHILS # (AUTO) 3.7 /CMM (1.8-8.9); NEUTROPHILS % (AUTO) 78.5 % (43.0-81.0); PLATELET COUNT (AUTO) 245 /CMM (150-450); RDW COEFFICIENT OF VARIATION 13.9 (11.5-15.0); RED BLOOD CELL COUNT(AUTO) 3.19 MIL/uL (4.5-6.0); WHITE BLOOD COUNT (AUTO) 4.7 K/uL (4.3-11.0)
[2017-08-07 07:43] LABS: CHOLESTEROL 122 mg/dL (<200); HDL CHOLESTEROL 34 mg/dL (40-60); LDL 79 mg/dL (0-99); TRIGLYCERIDES 70 mg/dL (30-150)
[2017-08-07 07:53] LABS: CALCIUM, SERUM 8.9 mg/dL (8.5-10.1)
--- NOTE | 2017-08-07 08:00 | NUR ---
RN AM NOTE RECEIVED PATIENT SITTING IN CHAIR AT THE BEDSIDE, ALERT AND ORIENTED X3. VITAL SIGNS STABLE, RESPIRATIONS EVEN AND UNLABORED WITH OXYGEN SATURATION OF 100% ON ROOM AIR. LEFT AC 20G SL INTACT AND PATENT, FLUSHES EASILY. PLANS FOR THORACENTESIS THIS MORNING, CONSENT SIGNED. PATIENT INSTRUCTED TO PUSH THE CALL LIGHT IF HE NEEDS ASSISTANCE GETTING BACK TO BED, VERBALIZED UNDERSTANDING. CALL LIGHT WITHIN REACH.
[2017-08-07 08:53] VITALS: BP 125/68
[2017-08-07] MEDS ORDERED: KETOROLAC EYE 0.5% 3 ML BOTTLE RIGHTEYE SCH ×2 (09:00→17:10)
--- NOTE | 2017-08-07 09:00 | NUR ---
US GUIDED THORACENTESIS PROCEDURE DONE BY DR SCHAEFER AND OBTAINED 1560 ML OF PLEURAL FLUID SENT TO PATHOLOGY FOR PLEURAL FLUID ANALYSIS.
--- NOTE | 2017-08-07 09:20 | NUR ---
STAT CXR ORDERED.PT STATED THAT HE FELT BETTER AFTER THE THORACENTESIS PROCEDURE.NO SOB.PT REMAINS ALERT WITH NO C/O SOB AND WITH STABLE V/S.
[2017-08-07] MEDS: LACTOBACILLUS RHAMNOSUS GG 1 EACH CAP.SPRINK PO SCH ×2 (09:23→17:01)
[2017-08-07] MEDS: TIMOLOL 0.25% SOL OPHTH 10 ML BOTTLE EACHEYE SCH ×2 (09:23→17:01)
[2017-08-07] MEDS: VALSARTAN 80 MG TABLET PO SCH (09:24)
--- NOTE | 2017-08-07 09:41 | NUR ---
PATIENT REQUESTED MEDICATION TO HELP WITH HIS CONSTIPATION, REMOVED MILK OF MAGNESIA FROM THE OMNICELL AND SCANNED FOR ADMINISTRATION. ONCE I OPENED THE CONTAINER OF MOM TO GIVE AT THE BEDSIDE THE PATIENT DECIDED HE NO LONGER WANTED TO TAKE THE MEDICATION.
[2017-08-07 12:18] VITALS: BP 155/64
[2017-08-07] MEDS: SOD FERRIC GLUC 125 MG in IV NS 0.9% 100 ML IV SCH (14:50)
[2017-08-07 15:48] VITALS: BP 155/81
[2017-08-07] MEDS: prednisoLONE ACET 1% OPHT DROP 5 ML BOTTLE RIGHTEYE SCH (17:02)
--- NOTE | 2017-08-07 18:49 | NUR ---
MED SURG 3 RN CLOSING NOTE PATIENT IN BED WATCHING TELEVISION AND RESTING. ALERT AND ORIENTED X3. VITAL SIGNS STABLE, RESPIRATIONS UNLABORED ON ROOM AIR WITH OXYGEN SATURATION OF 100% PATIENT VERBALIZED "FEELING MUCH BETTER AND BEING ABLE TO BREATHE ALOT EASILY SINCE HIS PROCEDURE", THORACENTESIS PERFORMED IN THE AM. PATIENT WITH LEFT AC 20G SL INTACT AND PATENT, FLUSHES EASILY AND LEFT HAND SL INTACT AND PATENT, ALSO FLUSHES EASILY. ALL NEEDS MET AT THIS TIME. PATIENT AMBULATORY WITH BRP, INSTRUCTED PATIENT TO USE THE CALL LIGHT IF HE NEEDS HELP GETTING TO AND FROM THE BATHROOM, HE VERBALIZED UNDERSTANDING. BED IN LOW POSITION WITH SIDE RAILS UP X2, CALL LIGHT WITHIN REACH.
--- NOTE | 2017-08-07 19:25 | NUR ---
RN OPEN NOTES RECEIVED PATIENT AWAKE IN BED. A/OX3. NO SIGNS OF DISTRESS OR DISCOMFORT. BREATHING EVEN AND UNLABORED. IV ACCESS IN LAC, PATENT AND INTACT, NO SIGNS OF REDNESS OR INFILTRATION. BED IN LOW LOCKED POSITION WITH SIDE RAILS X2. CALL LIGHT WITHIN REACH. WILL CONTINUE TO MONITOR.
[2017-08-07 20:00] VITALS: BP_SYST 105; BP_SYST 164; BP_DIAS 67; BP_DIAS 88
--- NOTE | 2017-08-07 20:54 | NUR ---
Patient was recently discharged home 08/01/17, patient is readmitted due to worsening SOB. He lives locally with his . He is ambulatory and independent with adl's. No DME or homehealth reported. Current plan is to return home when discharge. Addendum: 08/07/17 at 205 by DOLORES WRIGHT RN Amended: Links added.
--- NOTE | 2017-08-07 21:10 | NUR ---
RN NOTES ADMINISTERED TYLENOL 650MG ORDERED FOR PAIN 9/10 IN LEFT LATERAL BREAST. PATIENT STATES IT IS MUSCULAR PAIN AND DENIES ANY TIGHTNESS OR PRESSURE IN CHEST. ASKED PATIENT IF HE WOULD LIKE SOMETHING STRONGER FOR HIS PAIN AND PATIENT REFUSED. STATES HE WILL JUST TALK WITH THE DOCTOR IN THE AM. WILL CONTINUE TO MONITOR.
[2017-08-08] MEDS: AZTREONAM 1 G in IV NS 0.9% 100 ML IV SCH ×3 (04:10→20:56)
[2017-08-08 04:23] LABS: CALCIUM, SERUM 8.4 mg/dL (8.5-10.1); CARBON DIOXIDE 27 mmol/L (21-32); CHLORIDE 104 mmol/L (98-107); CREATININE 1.3 mg/dL (0.6-1.3); GLUCOSE 92 mg/dL (74-106); SODIUM SERUM 141 mmol/L (136-145); UREA NITROGEN, BLOOD 13 mg/dL (7-18); VANCOMYCIN,TROUGH 13 ug/ml (12-20)
[2017-08-08] MEDS: VANCOMYCIN 0.75 GM in IV D5W 250 ML IV SCH ×2 (05:17→18:16)
--- NOTE | 2017-08-08 06:57 | NUR ---
RN CLOSING NOTES PATIENT RESTING IN BED, EASILY AROUSABLE. A/OX3. NO SIGNS OF DISTRESS OR DISCOMFORT. BREATHING EVEN AND UNLABORED. IV ACCESS IN LAC, PATENT AND INTACT, NO SIGNS OF REDNESS OR INFILTRATION. ALL NEEDS MET. NO SIGNIFICANT CHANGES THROUGH THE NIGHT. BED IN LOW LOCKED POSITION WITH SIDE RAILS X2. CALL LIGHT WITHIN REACH. WILL ENDORSE TO AM SHIFT FOR SUZIE.
[2017-08-08] MEDS: TIMOLOL 0.25% SOL OPHTH 10 ML BOTTLE EACHEYE SCH ×2 (07:04→18:10)
[2017-08-08 08:00] VITALS: BP 156/74
[2017-08-08] MEDS: VALSARTAN 80 MG TABLET PO SCH (08:14)
[2017-08-08] MEDS: LACTOBACILLUS RHAMNOSUS GG 1 EACH CAP.SPRINK PO SCH ×2 (08:14→16:29)
[2017-08-08] MEDS: SOD FERRIC GLUC 125 MG in IV NS 0.9% 100 ML IV SCH (15:27)
[2017-08-08 16:00] VITALS: BP 135/85
[2017-08-08] MEDS: prednisoLONE ACET 1% OPHT DROP 5 ML BOTTLE RIGHTEYE SCH (17:15)
[2017-08-08] MEDS ORDERED: KETOROLAC EYE 0.5% 3 ML BOTTLE RIGHTEYE SCH (18:28)
[2017-08-08] MEDS ORDERED: prednisoLONE ACET 1% OPHT DROP 5 ML BOTTLE RIGHTEYE SCH (18:28)
--- NOTE | 2017-08-08 18:30 | NUR ---
RN NOTES: PATIENT WAS REFUSING VANCO IV STATING THAT HE WANTS TO AMBULATE WITH . EYEDROPS ADMINISTERED PER PATIENT'S HOME SCHEDULE. PHARMACY NOTIFIED
--- NOTE | 2017-08-08 19:30 | NUR ---
RN NOTES: PATIENT RECEIVED RESTING IN BED. NONLABORED BREATHING NOTED ON ROOM AIR. NO SIGNS OF DISTRESS NOTED. PATIENT AOX4. STATES THAT WHEN HE MOVES POSITIONS, HE FEELS MUSCLE PAIN 'BESIDE LEFT BREAST" PATIENT DENYING THAT IT IS CHEST PAIN, DENYING PRESSURE, VS WNL. BREATHING NONLABORED, CHEST EXPANSION SYMMETRICAL. NO PAIN UPON INSPIRATION. DR SANTANA AWARE DURING ROUNDS. IV LINE ON LEFT AC PATENT AND INTACT. PATIENT ENCOURAGED TO KEEP CLEAN AND DRY DURING SHIFT, ENCOURAGED TO AMBULATE WITH ASSISTANCE. STEADY GAIT NOTED. BED IN LOWEST LOCKED POSITION. CALL LIGHT WITHIN REACH. ENDORSED TO NEXT SHIFT CONTACTED ULTRASOUND X3. PER ULTRASOUND, THORACENTESIS TO BE DONE ON THURSDAY. CONSENT OBTAINED FROM PATIENT AND PLACED IN CHART SPO2 REMAINED WNL ON ROOM AIR THROUGHOUT SHIFT
--- NOTE | 2017-08-08 19:45 | NUR ---
MSRN FULLY AWAKE, DISCONNECTED FROM IV, AMBULATORY. WENT TO RESTROOM HAD BM, STOOL COLLECTED FOR OB.
[2017-08-08 20:00] VITALS: BP 167/82
--- NOTE | 2017-08-08 21:23 | NUR ---
MSRN ENDORSED TO RN FOR CONTINUITY OF CARE.
--- NOTE | 2017-08-08 21:35 | NUR ---
RN NOTES RECEIVED PATIENT FORM RN DAE. PATIENT IN STABLE CONDITION. WILL CONTINUE TO MONITOR.
[2017-08-09] MEDS: AZTREONAM 1 G in IV NS 0.9% 100 ML IV SCH ×3 (04:15→21:00)
[2017-08-09] MEDS: VANCOMYCIN 0.75 GM in IV D5W 250 ML IV SCH ×2 (05:19→18:27)
[2017-08-09] MEDS: TIMOLOL 0.25% SOL OPHTH 10 ML BOTTLE EACHEYE SCH ×2 (05:24→17:56)
[2017-08-09 06:57] LABS: CALCIUM, SERUM 8.3 mg/dL (8.5-10.1); CARBON DIOXIDE 25 mmol/L (21-32); CHLORIDE 106 mmol/L (98-107); CREATININE 1.3 mg/dL (0.6-1.3); GLUCOSE 88 mg/dL (74-106); SODIUM SERUM 141 mmol/L (136-145); UREA NITROGEN, BLOOD 13 mg/dL (7-18)
--- NOTE | 2017-08-09 07:07 | NUR ---
RN CLOSING NOTES PATIENT IS IN BED, ALERT AND ORIENTED X3. VS STABLE. NO C/O PAIN AT THIS TIME. RESPIRATIONS EVEN AND UNLABORED. NO SOB NOTED. IV ACCESS ON LEFT AC 20 G SL PATENT AND INTACT. ALL NEEDS ARE MET AND MEDICATIONS GIVEN PER MD ORDER. BED IN LOW AND LOCKED POSITION, SIDE RAILS X2. CALL LIGHT WITHIN EASY REACH. WILL ENDORSE TO RN DAY SHIFT FOR SUZIE.
[2017-08-09 08:00] VITALS: BP 124/65
[2017-08-09] MEDS: VALSARTAN 80 MG TABLET PO SCH (09:00)
[2017-08-09 09:07] LABS: BASOPHILS % (AUTO) 0.5 % (0.0-2.0); EOSINOPHILS # (AUTO) 0.1 /CMM (0.0-0.7); HEMATOCRIT 27 % (39-51); HEMOGLOBIN 9.2 g/dL (13.5-17.5); LYMPHOCYTES # (AUTO) 0.6 /CMM (0.8-4.8); LYMPHOCYTES % (AUTO) 14.6 % (20.0-44.0); MEAN CORPUSCULAR HEMOGLOBIN 30 PG (26.0-33.0); MEAN CORPUSCULAR HGB CONC 34 g/dl (31.0-36.0); MEAN CORPUSCULAR VOLUME 90 fL (80-96); MONOCYTES # (AUTO) 0.4 /CMM (0.1-1.30); MONOCYTES % (AUTO) 8.6 % (2.0-12.0); NEUTROPHILS # (AUTO) 3.3 /CMM (1.8-8.9); NEUTROPHILS % (AUTO) 74.3 % (43.0-81.0); PLATELET COUNT (AUTO) 247 /CMM (150-450); RDW COEFFICIENT OF VARIATION 14.1 (11.5-15.0); RED BLOOD CELL COUNT(AUTO) 3.03 MIL/uL (4.5-6.0); WHITE BLOOD COUNT (AUTO) 4.4 K/uL (4.3-11.0)
[2017-08-09 09:46] LABS: INR 1.05 (0.87-1.13)
[2017-08-09] MEDS: DILTIAZEM HCL CD 240 MG PO SCH (09:50)
[2017-08-09] MEDS: LACTOBACILLUS RHAMNOSUS GG 1 EACH CAP.SPRINK PO SCH ×2 (09:50→17:48)
[2017-08-09] MEDS: SOD FERRIC GLUC 125 MG in IV NS 0.9% 100 ML IV SCH (15:20)
[2017-08-09 16:00] VITALS: BP 139/65
--- NOTE | 2017-08-09 19:15 | NUR ---
RN OPEN NOTES RECEIVED PATIENT AWAKE IN BED. A/O X3. NO SIGNS OF DISTRESS OR DISCOMFORT. BREATHING EVEN AND UNLABORED. IV ACCESS IN LAC WITH VANCO CURRENTLY INFUSING, PATENT AND INTACT. BED IN LOW LOCKED POSITION WITH SIDE RAILS X2. CALL LIGHT WITHIN REACH. WILL CONTINUE TO MONITOR.
--- NOTE | 2017-08-09 19:30 | NUR ---
RN NOTES: PATIENT RESTING IN BED. NONLABORED BREATHING NOTED. NO SIGNS OF DISTRESS. DENIES CHEST PAIN,DENIES HEART BURN AND DIFFICULTY BREATHING. IV SITE ON LEFT FOREARM PATENT AND INTACT. PATIENT THROUGHOUT SHIFT AMBULATING WITH NO SIGNS OF DISTRESS. REFUSED VANCO AT 1700 INITIALLY THEN AGREED TO MED. PATIENT EDUCATED ON HAVING BRING KETOLARAC EYE DROP,PATIENT VERBALIZED UNDERSTANDING. PATIENT STABLE THROUGHT SHIFT. THORACENTESIS TO BE DONE TOMORROW. CALL LIGHT WITHIN REACH. BED IN LOWEST LOCKED POSITION. ENDORSED TO NEXT SHIFT
[2017-08-09 20:00] VITALS: BP 167/72
--- NOTE | 2017-08-09 22:00 | NUR ---
RN NOTES PATIENT REFUSED TO HAVE NEW IV INSERTION AND AZACTAM ADMINISTRATION X3. PATIENT STATES "I DONT WANT ANYTHING INTRAVENOUS, IM DONE!". PATIENT EDUCATED ON RISK AND BENEFITS. MD NOTIFIED. WILL CONTINUE TO MONITOR.
[2017-08-10 00:15] VITALS: BP 152/77
[2017-08-10] MEDS: AZTREONAM 1 G in IV NS 0.9% 100 ML IV SCH ×2 (05:00→13:00)
[2017-08-10] MEDS: VANCOMYCIN 0.75 GM in IV D5W 250 ML IV SCH (05:00)
[2017-08-10] MEDS: TIMOLOL 0.25% SOL OPHTH 10 ML BOTTLE EACHEYE SCH (06:15)
--- NOTE | 2017-08-10 06:47 | NUR ---
RN OPEN NOTES PATIENT AWAKE IN BED. A/O X3. NO SIGNS OF DISTRESS OR DISCOMFORT. BREATHING EVEN AND UNLABORED. PATIENT HAS NO IV ACCESS AT THIS TIME, PATIENT REFUSES ANY IV MEDICATIONS. ALL NEEDS MET. NO SIGNIFICANT CHANGES THROUGH THE NIGHT. BED IN LOW LOCKED POSITION WITH SIDE RAILS X2. CALL LIGHT WITHIN REACH. WILL ENDORSE TO AM SHIFT FOR SUZIE.
--- NOTE | 2017-08-10 07:30 | NUR ---
RN OPENING NOTES RECEIVED PT. IN BED A&OX4. BREATHING UNLABORED, AND EVENLY ON OXYGEN AT 2L/MIN VIA NASAL CANNULA. PT. HAS CRACKLES ON LEFT LOWER LUNG SOUND. NO S/S OF ACUTE DISTRESS. NO S/S OF ACUTE DISTRESS. PT. HAS ICE PACK ON LEFT FOREARM DUE TO A PREVIOUS IV INFILTRATION THAT WAS REMOVED. PT. REFUSES NEW IV ACCESS, AND HAS NO IV ACCESS AT THIS TIME. BED IS IN LOWEST, AND LOCKED POSITION WITH 2 SIDE RAILS UP. INSTRUCTED PT. TO USE CALL LIGHT FOR ASSISTANCE. ALL NEEDS MET. WILL CONTINUE TO ASSESS AND MONITOR.
[2017-08-10 08:00] VITALS: BP 145/77
[2017-08-10 08:12] LABS: CALCIUM, SERUM 8.8 mg/dL (8.5-10.1); CARBON DIOXIDE 26 mmol/L (21-32); CHLORIDE 109 mmol/L (98-107); CREATININE 1.2 mg/dL (0.6-1.3); GLUCOSE 105 mg/dL (74-106); POTASSIUM 4.6 mmol/L (3.5-5.1); SODIUM SERUM 143 mmol/L (136-145); UREA NITROGEN, BLOOD 13 mg/dL (7-18)
--- NOTE | 2017-08-10 08:57 | NUR ---
RN NOTES PT. HAS BEEN REFUSING NEW IV ACCESS, AND REQUESTED TO HAVE IV MEDICATIONS CHANGES TO PO. DISCUSSED WITH MD, NO NEW ORDERS GIVEN. MD IS AWARE PT. HAS NO IV ACCESS AT THIS TIME.
[2017-08-10] MEDS: LACTOBACILLUS RHAMNOSUS GG 1 EACH CAP.SPRINK PO SCH (08:59)
[2017-08-10] MEDS: VALSARTAN 80 MG TABLET PO SCH (09:00)
[2017-08-10] MEDS: DILTIAZEM HCL CD 240 MG PO SCH (09:00)
--- NOTE | 2017-08-10 09:03 | NUR ---
RN NOTES PT. IS HAVING A THORACENTESIS PROCEDURE AT BEDSIDE.
--- NOTE | 2017-08-10 10:02 | NUR ---
RN NOTES PT. HAD A CHEST X RAY.
--- NOTE | 2017-08-10 10:23 | NUR ---
RN NOTES PT. STARTED TO C/O CHEST PAIN POST THORACENTESIS. PT. WAS SEEN AND EXAMINED BY DR. QUINN. PER MD NEW ORDER WAS GIVEN FOR INDOCIN 25 MG PO [id number]. MD AWARE PT. CONTINUES TO STRONGLY REFUSE NEW IV ACCESS.
[2017-08-10] MEDS ORDERED: INDOMETHACIN 25 MG CAPSULE PO PRN (10:30)
--- NOTE | 2017-08-10 11:14 | NUR ---
RN NOTES BROUGHT PT.'S LLL PLEURAL FLUIDS TO PATHOLOGY, WITH FORM.
[2017-08-10 11:23] LABS: BASOPHILS % (AUTO) 0.6 % (0.0-2.0); EOSINOPHILS # (AUTO) 0.1 /CMM (0.0-0.7); EOSINOPHILS % (AUTO) 1.7 % (0.0-6.0); HEMATOCRIT 31 % (39-51); HEMOGLOBIN 10.5 g/dL (13.5-17.5); LYMPHOCYTES # (AUTO) 0.7 /CMM (0.8-4.8); LYMPHOCYTES % (AUTO) 12.8 % (20.0-44.0); MEAN CORPUSCULAR HEMOGLOBIN 30 PG (26.0-33.0); MEAN CORPUSCULAR HGB CONC 34 g/dl (31.0-36.0); MEAN CORPUSCULAR VOLUME 91 fL (80-96); MONOCYTES # (AUTO) 0.4 /CMM (0.1-1.30); MONOCYTES % (AUTO) 7.3 % (2.0-12.0); NEUTROPHILS % (AUTO) 77.6 % (43.0-81.0); PLATELET COUNT (AUTO) 321 /CMM (150-450); RDW COEFFICIENT OF VARIATION 14.3 (11.5-15.0); RED BLOOD CELL COUNT(AUTO) 3.47 MIL/uL (4.5-6.0); WHITE BLOOD COUNT (AUTO) 5.1 K/uL (4.3-11.0)
[2017-08-10] MEDS: ACETAMINOPHEN 325 MG TABLET PO PRN (11:29)
--- NOTE | 2017-08-10 13:00 | NUR ---
RN NOTES IV ANTIBIOTICS WERE NOT GIVEN DUE TO PT. REFUSING NEW IV ACCESS. MD AWARE OF PT. REFUSING TO START A NEW IV.
[2017-08-10] MEDS: SOD FERRIC GLUC 125 MG in IV NS 0.9% 100 ML IV SCH (14:00)
--- NOTE | 2017-08-10 14:00 | NUR ---
RN NOTES PT. HAS BEEN REFUSING NEW IV ACCESS, IRON VIA IV COULD NOT BE ADMINISTERED.
[2017-08-10 15:59] VITALS: BP_SYST 139; BP_SYST 143; BP_DIAS 66; BP_DIAS 69
--- NOTE | 2017-08-10 17:00 | NUR ---
REFERRAL NURSE PROVIDED DISCHARGE INSTRUCTIONS WITH EDUCATION. PT. VERBALIZED HE UNDERSTOOD DISCHARGE INSTRUCTIONS. DISCHARGE PAPERS WERE SIGNED. BELONGINGS LIST WAS CHECKED AND SIGNED. ID BAND REMOVED. PT. LEFT IN MEDICALLY STABLE CONDITION WITH FAMILY ALONG SIDE AND LEFT BY PRIVATE CAR. ALL QUESTIONS ANSWERED.
== END 2017-08-10 17:33 | disposition home or self-care (01) | DRG 291 ==
LOC: ER 10:04 → TELE 12:21 → MED 08-07 09:04
PROVIDERS: ADMIT Nurse Practitioner Acute Care; ATTEND Nurse Practitioner Acute Care
PROC: 0W9B3ZZ Drainage of Left Pleural Cavity, Percutaneous Approach (ICD-10-PCS; principal; 2017-08-07)
DX: I13.0 Hypertensive heart and chronic kidney disease with heart failure and stage 1 through stage 4 chronic kidney disease, or unspecified chronic kidney disease (principal); I50.33 Acute on chronic diastolic (congestive) heart failure; J96.01 Acute respiratory failure with hypoxia; J18.9 Pneumonia, unspecified organism; J90 Pleural effusion, not elsewhere classified; L03.115 Cellulitis of right lower limb; E88.09 Other disorders of plasma-protein metabolism, not elsewhere classified; E87.1 Hypo-osmolality and hyponatremia; D63.8 Anemia in other chronic diseases classified elsewhere; L03.116 Cellulitis of left lower limb; J98.11 Atelectasis; G54.0 Brachial plexus disorders; Z88.0 Allergy status to penicillin; Z88.6 Allergy status to analgesic agent; Z88.1 Allergy status to other antibiotic agents; Z88.2 Allergy status to sulfonamides; I16.0 Hypertensive urgency; H40.9 Unspecified glaucoma; I87.2 Venous insufficiency (chronic) (peripheral); N18.9 Chronic kidney disease, unspecified; R60.0 Localized edema; K66.0 Peritoneal adhesions (postprocedural) (postinfection); Y95 Nosocomial condition; Z85.828 Personal history of other malignant neoplasm of skin; Z92.3 Personal history of irradiation; G89.29 Other chronic pain; E05.90 Thyrotoxicosis, unspecified without thyrotoxic crisis or storm
CPT/HCPCS: 36415; 71045-TC; 76942-TC; 80048-TC; 80061-TC; 80076-TC; 80202-TC; 81000-TC; 82272-TC; 82306; 83605-TC; 83735-TC; 83880; 84100-TC; 84439-TC; 84443-TC; 84484-TC; 85025-TC; 85610-TC; 85730-TC; 87040-TC; 87070-TC; 87075-TC; 87081-TC; 87086-TC; 87102-TC; 88305-TC; 88312-TC; 88342; 89051-TC; 94799-TC; A4216; A4606; J1940; J2916; J3370; J3490; J7030; J7050; J7060; Q9967; Z7610

== ENCOUNTER 2017-08-15 16:55 | Inpatient (IN) | payer MEDICARE, BC ==
[~2017-08-15] VITALS: Ht 172.7 cm; Wt 82.2 kg
[~2017-08-15 16:55] MED LIST changes: +CLIN300C11 PO; +KETO5DRO83 RIGHTEYE; -LEVO750T21 GT
--- NOTE | 2017-08-15 17:00 | NUR ---
AAOX3, BB FAMILY: SOB ~ 4-5 DAYS, WORSE TODAY. LWW5=270% ON RA. SKIN IS WARM AND DRY. PLACED ON THE MONITOR. AWAITING MD FOR EVAL.
[2017-08-15 17:42] LABS: BASOPHILS % (AUTO) 0.6 % (0.0-2.0); EOSINOPHILS # (AUTO) 0.1 /CMM (0.0-0.7); EOSINOPHILS % (AUTO) 2.9 % (0.0-6.0); HEMATOCRIT 30 % (39-51); HEMOGLOBIN 10.1 g/dL (13.5-17.5); LYMPHOCYTES # (AUTO) 0.6 /CMM (0.8-4.8); LYMPHOCYTES % (AUTO) 17.2 % (20.0-44.0); MEAN CORPUSCULAR HEMOGLOBIN 31 PG (26.0-33.0); MEAN CORPUSCULAR HGB CONC 34 g/dl (31.0-36.0); MEAN CORPUSCULAR VOLUME 90 fL (80-96); MONOCYTES # (AUTO) 0.4 /CMM (0.1-1.30); NEUTROPHILS # (AUTO) 2.4 /CMM (1.8-8.9); NEUTROPHILS % (AUTO) 67.3 % (43.0-81.0); PLATELET COUNT (AUTO) 268 /CMM (150-450); RDW COEFFICIENT OF VARIATION 13.5 (11.5-15.0); RED BLOOD CELL COUNT(AUTO) 3.28 MIL/uL (4.5-6.0); WHITE BLOOD COUNT (AUTO) 3.5 K/uL (4.3-11.0)
[2017-08-15 17:52] LABS: CALCIUM, SERUM 8.7 mg/dL (8.5-10.1); CARBON DIOXIDE 27 mmol/L (21-32); CHLORIDE 103 mmol/L (98-107); CREATININE 1.4 mg/dL (0.6-1.3); GLUCOSE 101 mg/dL (74-106); POTASSIUM 4.4 mmol/L (3.5-5.1); SODIUM SERUM 135 mmol/L (136-145); UREA NITROGEN, BLOOD 16 mg/dL (7-18)
[2017-08-15 18:00] LABS: TROPONIN I < 0.017 ng/mL (0.00-0.056)
[2017-08-15 18:02] LABS: INR 0.98 (0.85-1.15)
[2017-08-15 18:05] LABS: B-TYPE NATRIURETIC PEPTIDE 690 PG/ML (0-125)
--- NOTE | 2017-08-15 18:51 | NUR ---
REPORT GIVEN TO WEN APARICIO FOR SUZIE.
--- NOTE | 2017-08-15 19:59 | NUR ---
REPORT GIVEN TO WINSTON
--- NOTE | 2017-08-15 20:20 | NUR ---
SOLUTIONS CONSULTANT ADMISSION NOTES ADMITTED 81 YO MALE PT ALERT, AWAKE,VERBALLY RESPONSIVE, ON ROOM AIR, RESPIRATIONS EVEN, UNLABORED, NO C/O OF SOB AT THIS TIME.SINUS RHYTHM 78 WITH PVC. IV SITE RT FA INTACT, PATENT.BODY ASSESSMENT DONE. DENIES ANY PAIN OR DISCOMFORT AT THIS TIME. CALL LIGHT WITHIN REACH. BED LOCKED IN LOWEST POSITION. KEPT CLEAN AND COMFORTABLE.ATTENDED ALL NEEDS.WILL CONTINUE TO MONITOR ACCORDINGLY.
[2017-08-15] MEDS ORDERED: MAG HYDROX/AL HYDROX/SIMETH 30 ML UDC PO PRN (20:30)
[2017-08-15] MEDS ORDERED: NITROGLYCERIN 0.4 MG/TAB BOTTLE SL PRN (20:30)
[2017-08-15] MEDS ORDERED: ACETAMINOPHEN 325 MG TABLET PO PRN (20:30)
[2017-08-15] MEDS ORDERED: ONDANSETRON HCL/PF 4 MG/2 ML VIAL IVP PRN (20:30)
[2017-08-15] MEDS ORDERED: MAGNESIUM HYDROXIDE 30 ML UDC PO PRN (20:30)
[2017-08-15] MEDS ORDERED: Z GUARD REMEDY 2 OZ OINT TP PRN (20:30)
[2017-08-15 20:35] VITALS: BP 142/78
[2017-08-15 21:00] VITALS: BP 154/67
[2017-08-15] MEDS ORDERED: HEPARIN SODIUM, PORCINE 5000 UNITS/1 ML VIAL SQ SCH (21:00)
[2017-08-15] MEDS ORDERED: TIMOLOL 0.5% SOLN OPHTH 5 ML BOTTLE EACHEYE ONE (21:30)
[2017-08-15] MEDS ORDERED: KETOROLAC TROMETHAMINE RIGHTEYE SCH (22:00)
[2017-08-15] MEDS ORDERED: KETOROLAC EYE 0.5% 3 ML BOTTLE RIGHTEYE SCH (22:00)
[2017-08-15] MEDS: CLINDAMYCIN HCL 150 MG CAPSULE PO SCH (23:04)
[2017-08-15] MEDS ORDERED: TIMOLOL 0.5% SOLN OPHTH 5 ML BOTTLE ONE (23:04)
[2017-08-16] VITALS: BP 138/72
[2017-08-16 04:00] VITALS: BP 134/70
--- NOTE | 2017-08-16 04:00 | NUR ---
ACCREDITED LEGAL SECRETARY NOTE PT COMPLAINED OF CHEST PAIN, DENIES IRRADIATION TO THE LT ARM BP 132/70 HR 78 T 98.7, RR 19,O2 SAT 98%, NITROGLYCERIN 0.4MG X1 TAB GIVEN ORDERED, WILL CONTINUE TO MONITOR CLOSELY.
--- NOTE | 2017-08-16 04:05 | NUR ---
AUTOMATIC DISPENSER MECHANIC NOTE PT STATED THAT CHEST PAIN WAS RELIEVED AFTER ADMINISTRATION OF ONE TABLET NITROGLYCERIN , DENIES SOB AT THIS TIME. BP 114/64 P 72 RR16, O2 SAT 98%. CALL LIGHT WITHIN REACH. WILL CONTINUE TO MONITOR ACCORDINGLY.
[2017-08-16] MEDS: CLINDAMYCIN HCL 150 MG CAPSULE PO SCH ×4 (05:12→23:04)
[2017-08-16 06:00] VITALS: BP 146/79
--- NOTE | 2017-08-16 06:58 | NUR ---
[employer] PIPE MANUFACTURING SUPERVISOR CLOSING NOTES PT IN BED, RESTING COMFORTABLY, RESPIRATIONS EVEN, UNLABORED, NO APPARENT DISTRESS NOTED. IV SITE RT AC INTACT, PATENT. DENIES ANY CHEST PAIN AT THIS TIME. CALL LIGHT WITHIN REACH.ATTENDED ALL NEEDS. KEPT CLEAN AND COMFORTABLE, ATTENDED ALL NEEDS. WILL CONTINUE TO MONITOR ACCORDINGLY.
[2017-08-16 08:00] VITALS: BP 157/74
[2017-08-16 08:03] LABS: BASOPHILS % (AUTO) 0.9 % (0.0-2.0); EOSINOPHILS # (AUTO) 0.1 /CMM (0.0-0.7); EOSINOPHILS % (AUTO) 1.5 % (0.0-6.0); HEMATOCRIT 32 % (39-51); HEMOGLOBIN 10.8 g/dL (13.5-17.5); LYMPHOCYTES # (AUTO) 0.7 /CMM (0.8-4.8); LYMPHOCYTES % (AUTO) 18.4 % (20.0-44.0); MEAN CORPUSCULAR HEMOGLOBIN 30 PG (26.0-33.0); MEAN CORPUSCULAR HGB CONC 33 g/dl (31.0-36.0); MEAN CORPUSCULAR VOLUME 91 fL (80-96); MONOCYTES # (AUTO) 0.3 /CMM (0.1-1.30); MONOCYTES % (AUTO) 8.5 % (2.0-12.0); NEUTROPHILS # (AUTO) 2.7 /CMM (1.8-8.9); NEUTROPHILS % (AUTO) 70.7 % (43.0-81.0); PLATELET COUNT (AUTO) 320 /CMM (150-450); RED BLOOD CELL COUNT(AUTO) 3.55 MIL/uL (4.5-6.0); WHITE BLOOD COUNT (AUTO) 3.8 K/uL (4.3-11.0)
[2017-08-16 08:14] LABS: CALCIUM, SERUM 9.1 mg/dL (8.5-10.1); CARBON DIOXIDE 28 mmol/L (21-32); CHLORIDE 104 mmol/L (98-107); CREATININE 1.4 mg/dL (0.6-1.3); GLUCOSE 97 mg/dL (74-106); POTASSIUM 4.2 mmol/L (3.5-5.1); SODIUM SERUM 138 mmol/L (136-145); UREA NITROGEN, BLOOD 14 mg/dL (7-18)
[2017-08-16 08:19] LABS: ALANINE AMINOTRANSFERASE 22 U/L (12-78); ALBUMIN 2.7 g/dL (3.4-5.0); ALKALINE PHOSPHATASE 64 U/L (46-116); ASPARTATE AMINOTRANSFERASE 26 U/L (15-37); BILIRUBIN,TOTAL 0.5 mg/dL (0.2-1.0); MAGNESIUM 2.3 mg/dL (1.8-2.4); PHOSPHORUS 3.8 mg/dL (2.5-4.9)
[2017-08-16 08:20] LABS: TROPONIN I < 0.017 ng/mL (0.00-0.056)
[2017-08-16 08:26] LABS: CHOLESTEROL 145 mg/dL (<200); HDL CHOLESTEROL 39 mg/dL (40-60); LDL 95 mg/dL (0-99); THYROID STIMULATING HORMONE 7.161 uIU/mL (0.358-3.74); TRIGLYCERIDES 102 mg/dL (30-150)
[2017-08-16] MEDS ORDERED: TIMOLOL 0.5% SOLN OPHTH 5 ML BOTTLE EACHEYE SCH (09:00)
[2017-08-16 16:00] VITALS: BP 129/81
[2017-08-16] MEDS: KETOROLAC EYE 0.5% 3 ML BOTTLE RIGHTEYE SCH (17:47)
[2017-08-16] MEDS: TIMOLOL 0.5% SOLN OPHTH 5 ML BOTTLE EACHEYE SCH (17:48)
[2017-08-16] MEDS: prednisoLONE ACET 1% OPHT DROP 5 ML BOTTLE RIGHTEYE SCH (17:48)
[2017-08-16] MEDS ORDERED: KETOROLAC EYE 0.5% 3 ML BOTTLE RIGHTEYE SCH (18:10)
--- NOTE | 2017-08-16 18:45 | NUR ---
RN CLOSING NOTES PATIENT IS ALERT AND ORIENTED TO NAME, PLACE AND TIME. RESTING IN BED. NO SIGNS AND SYMPTOMS OF DISTRESS OR PAIN. BED IN LOW POSITION, LOCKED AND TWO BEDSIDE RAILS ARE UP. CALL LIGHT IS WITHIN REACH FOR SAFETY. ALL NEEDS WERE MET. ALL NURSING CARE ANTICIPATED AND ATTENDED FOR. NO ACUTE CHANGED DURING THE SHIFT. WILL ENDORSE CARE TO WELT CUTTER NURSE.
--- NOTE | 2017-08-16 19:40 | NUR ---
MS RN INITIAL NOTES PT IS IN BED AWAKE AND ALERT X4, ABLE TO MAKE NEEDS KNOWN. DENIES PAIN AT THIS TIME. BREATHING EVENLY AND UNLABORED ON RA, NO SIGNS OF SOB OR DISTRESS. FINAL DOSES OF CLINDAMYCIN SCHEDULED FOR TONIGHT. BED IS IN LOW AND LOCKED POSITION, CALL LIGHT WITHIN REACH. WILL CONTINUE TO MONITOR PT
[2017-08-16 20:00] VITALS: BP 150/77
[2017-08-16] MEDS ORDERED: prednisoLONE ACET 1% OPHT DROP 5 ML BOTTLE RIGHTEYE SCH (22:00)
[2017-08-17] VITALS (8 sets, daily range): BP systolic 148–175; BP diastolic 78–98
[2017-08-17] MEDS: CLINDAMYCIN HCL 150 MG CAPSULE PO SCH (05:25)
[2017-08-17] MEDS: TIMOLOL 0.5% SOLN OPHTH 5 ML BOTTLE EACHEYE SCH ×2 (05:28→20:17)
--- NOTE | 2017-08-17 06:59 | NUR ---
MS RN NOTES DR. LIRA SAW PT, ORDERS WILL BE PUT IN FOR SURGERY. PT TO REMAIN NPO
--- NOTE | 2017-08-17 07:00 | NUR ---
MS RN NOTES PT IS IN BED AWAKE AND ALERT. NO SIGNS OF SOB OR DISTRESS. BREATHING EVENLY AND UNLABORED ON RA. ALL NEEDS WERE ANTICIPATED AND MET. NO ACUTE CHANGES THROUGHOUT THE SHIFT. BED IS IN LOW AND LOCKED POSITION, CALL LIGHT WITHIN REACH. WILL ENDORSE TO DAYSHIFT
--- NOTE | 2017-08-17 07:50 | NUR ---
RN OPENING NOTES RECEIVED PT. PT IS STABLE AND RESTING IN BED. A/OX4, NO S/S OF RESP DISTRESS OR SOB. PT HAS NO C/O PAIN AT THIS TIME. SURGERY SCHEDULED FOR THIS AFTERNOON AT APPROXIMATELY 1730. WILL OBTAIN SIGNATURES FOR ALL PERTINENT CONSENT FORMS. PT PLACED ON NPO STARTING ON BREAKFAST ON 08/17/17. SAFETY MEASURES IN PLACE, CALL LIGHT WITHIN REACH. WILL CONTINUE TO MONITOR.
[2017-08-17 08:10] LABS: INR 1.04 (0.87-1.13)
[2017-08-17 08:11] LABS: CALCIUM, SERUM 8.8 mg/dL (8.5-10.1); CARBON DIOXIDE 26 mmol/L (21-32); CHLORIDE 106 mmol/L (98-107); CREATININE 1.3 mg/dL (0.6-1.3); GLUCOSE 88 mg/dL (74-106); MAGNESIUM 2.2 mg/dL (1.8-2.4); SODIUM SERUM 138 mmol/L (136-145); UREA NITROGEN, BLOOD 14 mg/dL (7-18)
[2017-08-17 08:12] LABS: BASOPHILS % (AUTO) 0.7 % (0.0-2.0); EOSINOPHILS # (AUTO) 0.1 /CMM (0.0-0.7); EOSINOPHILS % (AUTO) 3.3 % (0.0-6.0); HEMATOCRIT 29 % (39-51); HEMOGLOBIN 9.6 g/dL (13.5-17.5); LYMPHOCYTES # (AUTO) 0.5 /CMM (0.8-4.8); LYMPHOCYTES % (AUTO) 16.3 % (20.0-44.0); MEAN CORPUSCULAR HEMOGLOBIN 30 PG (26.0-33.0); MEAN CORPUSCULAR HGB CONC 33 g/dl (31.0-36.0); MEAN CORPUSCULAR VOLUME 91 fL (80-96); MONOCYTES # (AUTO) 0.3 /CMM (0.1-1.30); MONOCYTES % (AUTO) 11.3 % (2.0-12.0); NEUTROPHILS % (AUTO) 68.4 % (43.0-81.0); PLATELET COUNT (AUTO) 232 /CMM (150-450); RDW COEFFICIENT OF VARIATION 14.6 (11.5-15.0); RED BLOOD CELL COUNT(AUTO) 3.19 MIL/uL (4.5-6.0); WHITE BLOOD COUNT (AUTO) 2.9 K/uL (4.3-11.0)
[2017-08-17] MEDS ORDERED: LIDOCAINE 1% INJ 50 ML MDV IJ ONE (13:41)
--- NOTE | 2017-08-17 14:28 | NUR ---
RN NOTES TYPE AND SCREEN ORDERED, COLLECTED AND IS CURRENTLY BEING PROCESSED BY LAB. AWAITING RESULTS.
--- NOTE | 2017-08-17 15:00 | NUR ---
RN NOTES PT SENT TO OR FOR VAT PROCEDURE. CONSENTS SIGNED AND GIVEN TO OR STAFF.
[2017-08-17] MEDS ORDERED: PROPOFOL 20 ML IV ONE (15:03)
[2017-08-17] MEDS ORDERED: ROCURONIUM BROMIDE 50 MG/5 ML ONE (15:36)
[2017-08-17] MEDS ORDERED: CLINDAMYCIN 900 MG/6 ML VIAL ONE (15:39)
[2017-08-17] MEDS ORDERED: TALC 5 G/VIAL ML IX ONE (16:40)
[2017-08-17] MEDS ORDERED: FENTANYL PF 100MCG/2ML AMPUL ONE (17:25)
[2017-08-17] MEDS ORDERED: KETOROLAC TROMETHAMINE INJ 30 MG/ML VIAL ONE (17:49)
[2017-08-17] MEDS ORDERED: MORPHINE SULFATE INJ 10 MG/ML DISP.SYRIN ONE (18:06)
--- NOTE | 2017-08-17 18:15 | NUR ---
RN NOTES REPORT GIVEN TO ICU SUPERVISOR PRESSING DEPARTMENT. TIMOLOL DROPS UNAVAILABLE IN CASSETTE, PHARMACY CONTACTED TO DELIVER DROPS TO ICU ROOM 255.
[2017-08-17] MEDS ORDERED: MORPHINE SULFATE INJ 2 MG/ML DISP.SYRIN IV PRN (18:30)
[2017-08-17] MEDS: MORPHINE SULFATE INJ 4 MG/ML DISP.SYRIN IV PRN (18:43)
--- NOTE | 2017-08-17 18:45 | NUR ---
ICU/RN: Pt received from OR, A&Ox4, C/O 04/07 pain, received fentanyl, tramadol and morphine 6mg in recovery. Chest tube on L lung present with serosanguineous drainage noted; total 110 cc out. L radial A-line noted. SBP >170mmhg dt pain; administered morphine prn as ordered, verified with and pt that he is not allergic to aforementioned meds, only experiences nausea when taken. Administered Zofran to prevent emesis and nausea. L lower leg cellulitis noted per baseline per at bedside. Awaiting delivery of eyedrops from previous unit. Rx aware. Will endorse care to pm rn for helen.
[2017-08-17] MEDS ORDERED: CLINDAMYCIN IV RTU IN D5W 900 MG/50 ML PIGGYBACK IV ONE (20:00)
[2017-08-17] MEDS: KETOROLAC EYE 0.5% 3 ML BOTTLE RIGHTEYE SCH (20:20)
[2017-08-17] MEDS: prednisoLONE ACET 1% OPHT DROP 5 ML BOTTLE RIGHTEYE SCH (20:20)
[2017-08-17] MEDS: IV D5/0.45 NACL W/20 MEQ KCL 1L IV PRN ×2 (20:42)
--- NOTE | 2017-08-17 23:50 | NUR ---
RN NOTES PT IS VERY RESTLESS BP IS GOING UP TO 170'S WANTED TO GET UP TO URINATE. INFORMED AND EDUCATE PT REGARDING HIS HEALTH STATUS AND TO BE CAREFUL WITH HIS CHEST TUBE. ENCOURAGED TO STAY ON BED. AND WILL DO SOME BLADDER SCAN TO CHECK IF THERE'S ANY RETENTION. CALLED CLINICAL CYTOPATHOLOGIST NEGRETTE AND INFORMED ABOUT THE URINARY RETENTION OF THE PT. INSERT F/C DRAINED WITH 350 ML OF URINE. PT FEELS BETTER. BP STARTED TO GET STABLE.
[2017-08-18] VITALS (30 sets, daily range): BP systolic 91–156; BP diastolic 42–81
[2017-08-18] MEDS: MORPHINE SULFATE INJ 4 MG/ML DISP.SYRIN IV PRN (02:09)
[2017-08-18 05:04] LABS: BASOPHILS % (AUTO) 0.1 % (0.0-2.0); HEMATOCRIT 30 % (39-51); HEMOGLOBIN 10.2 g/dL (13.5-17.5); LYMPHOCYTES # (AUTO) 0.4 /CMM (0.8-4.8); LYMPHOCYTES % (AUTO) 6.2 % (20.0-44.0); MEAN CORPUSCULAR HEMOGLOBIN 31 PG (26.0-33.0); MEAN CORPUSCULAR HGB CONC 34 g/dl (31.0-36.0); MEAN CORPUSCULAR VOLUME 90 fL (80-96); MONOCYTES # (AUTO) 0.2 /CMM (0.1-1.30); MONOCYTES % (AUTO) 3.7 % (2.0-12.0); PLATELET COUNT (AUTO) 273 /CMM (150-450); RDW COEFFICIENT OF VARIATION 14.3 (11.5-15.0); RED BLOOD CELL COUNT(AUTO) 3.34 MIL/uL (4.5-6.0); WHITE BLOOD COUNT (AUTO) 6.7 K/uL (4.3-11.0)
[2017-08-18 05:23] LABS: CALCIUM, SERUM 8.1 mg/dL (8.5-10.1); CARBON DIOXIDE 24 mmol/L (21-32); CHLORIDE 103 mmol/L (98-107); CREATININE 1.3 mg/dL (0.6-1.3); GLUCOSE 153 mg/dL (74-106); POTASSIUM 4.7 mmol/L (3.5-5.1); SODIUM SERUM 135 mmol/L (136-145); UREA NITROGEN, BLOOD 15 mg/dL (7-18)
[2017-08-18] MEDS: TIMOLOL 0.5% SOLN OPHTH 5 ML BOTTLE EACHEYE SCH ×2 (06:03→17:48)
--- NOTE | 2017-08-18 07:00 | NUR ---
RN NOTES RECEIVED PT ON BED, A/Ox4 , RESPIRATION EVEN AND UNLABORED,ON O2 2L O2 N/C , CHEST TUBE TO LEFT LUNG DRAINING WITH SEROSANGUINEOUS DRAINAGE, L RADIAL A-LINE SITE CDI, ON TELE , SR ,HR IN 70'S , R AC G 20 AND R WRIST IV G 18 SITES CDI, D5 1/2NS WITH 20 MEQ KCL RUINING AT 60CC/HR VIA L WRIST IV SITE , SUPPORTIVE AT THE BEDSIDE, JAVED DRAINING TO GRAVITY WITH YELLOW URINE, SR UP x3, CALL LIGHTS WITHIN EASY REACH, BED LOCKED AND IN LOWEST POSITION , CONTINUE TO MONITOR.
--- NOTE | 2017-08-18 07:37 | NUR ---
RN NOTES PT REMAINED INS TABLE CONDITION NO SOB NO ACUTE RESP DISTRESS TOLERATED O2 2LPM VIA NC. SATING 99%. NO SIGNIFICANT CHANGES THROUGHOUT THE SHIFT. AFEBRILE. IV SITE REMAINED INTACT A- LINE CONNECTED TO GOOD WAVE FORM. CHEST TUBE REMAINED INTACT AND PATENT WITH SEROSANGUINEOUS OUTPUT. ALL NEEDS ATTENDED. WILL ENDORSED CONTINUITY OF CARE TO AM NURSE.
--- NOTE | 2017-08-18 12:00 | NUR ---
RN NOTES A LINE DISCONTINUED PER ARNOL SUPERVISOR ENROBING ORDER , PRESSURE DRESSING APPLIED TO L WRIST SITE , CONTINUE TO MONITOR .
[2017-08-18] MEDS: HYDROCODONE/APAP 5/325MG 1 EACH TABLET PO PRN (13:35)
[2017-08-18] MEDS: IV D5/0.45 NACL W/20 MEQ KCL 1L IV PRN ×2 (13:36)
--- NOTE | 2017-08-18 14:51 | NUR ---
RN NOTES VSS STABLE , PT ALEXSANDRA ANY DISTRESS, LEFT CHEST TUBE TO WALL SUCTIONING DRAINING SMALL AMOUNT OF SEROSANGUINEOUS DRAINING, SR UP x3, CALL LIGHTS WITHIN EASY REACH, CONTINUE TO MONITOR LAVELLE .
--- NOTE | 2017-08-18 16:10 | NUR ---
RN NOTES REPORT GIVEN TO ISSAC CARVER ON 3W, PT TRANSFERRED TO ROOM 328-2, TELE BED, IN STABLE CONDITION.
--- NOTE | 2017-08-18 16:45 | NUR ---
BARREL INSPECTOR NOTES PATIENT ARRIVED FROM ICU. PLACED IN ROOM 328-1. NO SIGNS AND SYMPTOMS OF DISTRESS. PATIENT COME WITH A CHEST TUBE, IV. REFUSED DVT STOCKING. REMOVED JAVED --- BALLOON DEFLATED WITH 10 CC, PATIENT TOLERATED PROCEDURE WELL. PATIENT VOIDED RIGHT AFTER.
[2017-08-18] MEDS: KETOROLAC EYE 0.5% 3 ML BOTTLE RIGHTEYE SCH (17:48)
[2017-08-18] MEDS: prednisoLONE ACET 1% OPHT DROP 5 ML BOTTLE RIGHTEYE SCH (17:48)
--- NOTE | 2017-08-18 19:09 | NUR ---
RN CLOSING NOTES PATIENT IS IN BED, ALERT AND ORIENTED TO NAME, PLACE AND TIME. NO SIGNS AND SYMPTOMS OF DISTRESS. ALL PATIENT CARE ANTICIPATED AND ATTENDED FOR. BED IN LOW POSITION, LOCKED AND TWO SIDE RAILS ARE UP. CALL LIGHT WITHIN REACH FOR SAFETY. WILL ENDORSE TO MILK DRIVER NURSE
--- NOTE | 2017-08-18 19:20 | NUR ---
BODYBUILDER OPENING NOTES PT AWAKE AND RESTING IN BED. NO COMPLAINTS OF PAIN, DISTRESS OR SOB. PT HAS A LEFT CHEST TUBE INTACT AND CONNECTED TO SUCTION. PT IS TELE MONITORED SINUS RHYTHM 79. PT HAS RIGHT AC #20 IV RUNNING D5 1/2 NS WITH 20 MEQ @60ML/HR, PT TOLERATING WELL. SAFETY PRECAUTIONS IN PLACE. BED IN LOW, LOCKED POSITION, X2 SIDERAILS UP, AND CALL LIGHT WITHIN REACH. WILL CONTINUE TO MONITOR.
--- NOTE | 2017-08-18 22:30 | NUR ---
RN NOTES PT FOUND BY CARLITOS SQUIRES WITH CHEST TUBE DISCONNECTED FROM SUCTION. CHARGE NURSE WAS NOTIFIED.
--- NOTE | 2017-08-18 22:45 | NUR ---
RN NOTES ICU NURSE LATHA VERIFIED THAT THE CHEST TUBE SYSTEM WAS WORKING AND THE TUBE WAS NOT PULLED OUT.
--- NOTE | 2017-08-18 23:05 | NUR ---
RN NOTES STAT CHEST XRAY ORDERED. DR MELENDREZ NOTIFIED OF THE SITUATION. NOTED THAT PER CHEST XRAY TUBE SEEMED TO BE IN PLACE.
--- NOTE | 2017-08-18 23:55 | NUR ---
RN NOTES CHEST XRAY CONFIRMED THAT THERE ARE NO SIGNIFICANT CHANGES IN THE POSITION OF THE CHEST TUBE. EDUCATED THE PATIENT ABOUT CHEST TUBE SAFETY. REEDUCATED PATIENT OF THE USE OF CALL LIGHT. WILL CONTINUE TO MONITOR.
[2017-08-19] VITALS: BP 133/68
[2017-08-19 04:00] VITALS: BP 124/62
[2017-08-19] MEDS: MORPHINE SULFATE INJ 4 MG/ML DISP.SYRIN IV PRN ×2 (04:13→08:42)
[2017-08-19] MEDS: TIMOLOL 0.5% SOLN OPHTH 5 ML BOTTLE EACHEYE SCH ×2 (06:23→17:46)
[2017-08-19 06:56] LABS: BASOPHILS % (AUTO) 0.3 % (0.0-2.0); EOSINOPHILS % (AUTO) 0.6 % (0.0-6.0); HEMATOCRIT 29 % (39-51); HEMOGLOBIN 9.7 g/dL (13.5-17.5); LYMPHOCYTES # (AUTO) 0.5 /CMM (0.8-4.8); LYMPHOCYTES % (AUTO) 8.4 % (20.0-44.0); MEAN CORPUSCULAR HEMOGLOBIN 30 PG (26.0-33.0); MEAN CORPUSCULAR HGB CONC 34 g/dl (31.0-36.0); MEAN CORPUSCULAR VOLUME 90 fL (80-96); MONOCYTES # (AUTO) 0.5 /CMM (0.1-1.30); NEUTROPHILS # (AUTO) 4.7 /CMM (1.8-8.9); NEUTROPHILS % (AUTO) 82.7 % (43.0-81.0); PLATELET COUNT (AUTO) 228 /CMM (150-450); RDW COEFFICIENT OF VARIATION 14.7 (11.5-15.0); RED BLOOD CELL COUNT(AUTO) 3.22 MIL/uL (4.5-6.0); WHITE BLOOD COUNT (AUTO) 5.7 K/uL (4.3-11.0)
--- NOTE | 2017-08-19 06:59 | NUR ---
AIR SAW OPERATOR CLOSING NOTES PT AWAKE AND RESTING IN BED. PT HAS RIGHT AC #20 IV RUNNING D5 1/2 NS WITH 20 MEQ @60ML/HR, PT TOLERATING WELL. PT LEFT CHEST TUBE IS INTACT AND DRAINING WELL. SAFETY PRECAUTIONS IN PLACE. BED IN LOW, LOCKED POSITION, X2 SIDE RAILS UP, AND CALL LIGHT WITHIN REACH. WILL CONTINUE TO MONITOR.
[2017-08-19 07:32] LABS: CALCIUM, SERUM 8.4 mg/dL (8.5-10.1); CARBON DIOXIDE 26 mmol/L (21-32); CHLORIDE 104 mmol/L (98-107); CREATININE 1.4 mg/dL (0.6-1.3); GLUCOSE 113 mg/dL (74-106); PHOSPHORUS 3.1 mg/dL (2.5-4.9); POTASSIUM 4.4 mmol/L (3.5-5.1); SODIUM SERUM 137 mmol/L (136-145); UREA NITROGEN, BLOOD 15 mg/dL (7-18)
--- NOTE | 2017-08-19 07:32 | NUR ---
SOFTWARE PRODUCT MANAGER OPENING NOTES PT RECEIVED AWAKE IN BED IN NO ACUTE SIGNS OF DISTRESS. A/O X3, SAME VERBALLY RESPONSIVE WITH NO C/O PAIN OR DISCOMFORTS VOICED AT THIS TIME. IV ACCESS ON RIGHT AC #20 INTACT AND PATENT, EASILY TO FLUSH. ON TELE-MONITORING WITH CURRENT READING OF SINUS RHYTHM AND HR OF 83. LEFT CHEST TUBE IN PLACE, NO LEAKING NOTED AND DRAINING LIGHT BROWNISH DRAINAGE TO COLLECTING CANISTER. SAFETY PRECAUTIONS IN PLACE. BED IN LOW/LOCKED POSITION WITH SIDE-RAILS UP X2. CALL LIGHT WITHIN REACH. WILL CONTINUE TO MONITOR PT ACCORDINGLY.
[2017-08-19 08:00] VITALS: BP 147/65
--- NOTE | 2017-08-19 08:46 | NUR ---
RN NOTES PT C/O CRUSHING, DULL AND BURNING PAIN ON LEFT LOWER ABDOMEN ON THE CHEST TUBE SITE WITH INTENSITY OF 10/10. PRN MORPHINE 4MG IVP GIVEN. WILL CONTINUE TO MONITOR.
--- NOTE | 2017-08-19 11:59 | NUR ---
RN NOTES PHYSICAL THERAPIST CAME BUT PT REFUSED PHYSICAL THERAPY EVALUATION TODAY STATING THAT HE'S TIRED AND TOO WEAK AT THIS TIME. HE SAID THAT HE WILL DO IT TOMORROW. YUSRA AMBROSE MADE AWARE. WILL CONTINUE TO MONITOR.
[2017-08-19 16:00] VITALS: BP 121/61
[2017-08-19] MEDS: prednisoLONE ACET 1% OPHT DROP 5 ML BOTTLE RIGHTEYE SCH (17:45)
[2017-08-19] MEDS: KETOROLAC EYE 0.5% 3 ML BOTTLE RIGHTEYE SCH (17:45)
--- NOTE | 2017-08-19 18:46 | NUR ---
MS RN CLOSING NOTES PT AWAKE AND RESTING AT MODERATE HIGH BACKREST IN BED. A/O X3, SAME VERBALLY RESPONSIVE. VISITED EARLY THIS MORNING AND THIS AFTERNOON. ALL NEEDS NAD CARE ATTENDED WELL. IV ACCESS ON RIGHT AC #20 AND RIGHT HAND #20 BOTH INTACT AND PATENT. LEFT CHEST TUBE IN PLACE, NO LEAKING NOTED AND DRAINING LIGHT BROWNISH DRAINAGE TO COLLECTING CANISTER, OUTPUT THIS SHIFT 20ML. HOB KEPT ELEVATED. ALL SAFETY PRECAUTIONS IN PLACE. BED IN LOW/LOCKED POSITION WITH SIDE-RAILS UP X2. CALL LIGHT WITHIN REACH. WILL ENDORSED TO KIER OPERATOR NURSE FOR SUZIE.
--- NOTE | 2017-08-19 19:30 | NUR ---
MS RN NOTES PATIENT RECEIVED RESTING INSIDE ROOM, AWAKE, ALERT AND ORIENTED X 4. ABLE TO MAKE NEEDS KNOWN AND FOLLOW SIMPLE INSTRUCTIONS. BREATHING EVEN AND UNLABORED. NO SOB OR ACUTE DISTRESS NOTED. LEFT CHEST TUBE PRESENT WITH BROWNISH OUTPUT NOTED ON COLLECTING CANISTER. DENIES ANY PAIN OR DISCOMFORT. PATIENT REMAINS CALM AND RELAXED. AFEBRILE, SKIN DRY AND WARM TO TOUCH. NO CHANGES IN LOC NOTED. WILL CONTINUE TO MONITOR. BED LOCKED AND IN LOW POSITION, BILATERAL UPPER SIDE RAILS UP AND LOCKED. CALL LIGHT WITHIN EASY REACH.
[2017-08-19 20:00] VITALS: BP 131/65
[2017-08-20] MEDS: TIMOLOL 0.5% SOLN OPHTH 5 ML BOTTLE EACHEYE SCH ×2 (06:00→18:00)
[2017-08-20] MEDS: HYDROCODONE/APAP 5/325MG 1 EACH TABLET PO PRN ×2 (06:47→17:01)
--- NOTE | 2017-08-20 06:48 | NUR ---
MS RN NOTES PATIENT WITH COMPLAIN OF GENERALIZED PAIN WITH LEVEL OF 7/10. GIVEN NORCO 5/325 ORDERED PRN. WILL CONTINUE TO MONITOR
--- NOTE | 2017-08-20 06:51 | NUR ---
MS RN NOTES PATIENT RESTING INSIDE ROOM, AWAKE, ALERT AND ORIENTED. ABLE TO MAKE NEEDS KNOWN AND FOLLOW SIMPLE INSTRUCTIONS. PATIENT BREATHING EVEN AND UNLABORED. NO SOB OR ACUTE DISTRESS NOTED AT THIS TIME. PATIENT AFEBRILE, SKIN DRY AND WARM TO TOUCH. NO CHANGES IN LOC NOTED AT THIS TIME. PATIENT REMAINS CALM AND RELAXED. CHEST TUBE IN PLACE WITH BROWNISH OUTPUT NOTED ON COLLECTING CANISTER, WITH OUTPUT OF 40 CC THIS SHIFT. SEEN BY JOHN PARIKH, AWAITING FOR NEW ORDERS. ALL NURSING NEEDS ATTENDED AND MET. ALL DUE MEDICATIONS GIVEN AND TOLERATED WELL. PROVIDED WITH CALM, SAFE, HAZARD-FREE ENVIRONMENT. CALL LIGHT PLACED WITHIN EASY REACH. WILL ENDORSE TO INCOMING SHIFT.
[2017-08-20 07:28] LABS: BASOPHILS % (AUTO) 0.3 % (0.0-2.0); EOSINOPHILS # (AUTO) 0.1 /CMM (0.0-0.7); EOSINOPHILS % (AUTO) 1.7 % (0.0-6.0); HEMATOCRIT 29 % (39-51); LYMPHOCYTES # (AUTO) 0.5 /CMM (0.8-4.8); LYMPHOCYTES % (AUTO) 11.7 % (20.0-44.0); MEAN CORPUSCULAR HEMOGLOBIN 30 PG (26.0-33.0); MEAN CORPUSCULAR HGB CONC 34 g/dl (31.0-36.0); MEAN CORPUSCULAR VOLUME 90 fL (80-96); MONOCYTES # (AUTO) 0.3 /CMM (0.1-1.30); MONOCYTES % (AUTO) 7.6 % (2.0-12.0); NEUTROPHILS # (AUTO) 3.4 /CMM (1.8-8.9); NEUTROPHILS % (AUTO) 78.7 % (43.0-81.0); PLATELET COUNT (AUTO) 211 /CMM (150-450); RDW COEFFICIENT OF VARIATION 14.9 (11.5-15.0); RED BLOOD CELL COUNT(AUTO) 3.28 MIL/uL (4.5-6.0); WHITE BLOOD COUNT (AUTO) 4.3 K/uL (4.3-11.0)
--- NOTE | 2017-08-20 07:41 | NUR ---
RN OPENING NOTES PATIENT RESTING IN BED, AWAKE, ALERT AND ORIENTED. NO ACUTE DISTRESS, NO SOB NOTED. DENIES PAIN OR DISCOMFORT AT THIS TIME. IV SITE INTACT AND PATENT. CHEST TUBE IN PLACE WITH BROWNISH OUTPUT NOTED ON COLLECTING CANISTER, WITH OUTPUT OF 40 CC. SAFETY MEASURES INITIATED. BED IN LOW/LOCKED POSITION, SIDERAILS UPX2, BED ALARM ON, CALL LIGHT IN REACH. WILL CONTINUE TO MONITOR ACCORDINGLY.
[2017-08-20 07:43] LABS: CALCIUM, SERUM 8.4 mg/dL (8.5-10.1); CARBON DIOXIDE 29 mmol/L (21-32); CHLORIDE 106 mmol/L (98-107); CREATININE 1.2 mg/dL (0.6-1.3); GLUCOSE 99 mg/dL (74-106); MAGNESIUM 2.1 mg/dL (1.8-2.4); PHOSPHORUS 3.5 mg/dL (2.5-4.9); POTASSIUM 4.3 mmol/L (3.5-5.1); SODIUM SERUM 140 mmol/L (136-145); UREA NITROGEN, BLOOD 14 mg/dL (7-18)
[2017-08-20 08:00] VITALS: BP 139/73
--- NOTE | 2017-08-20 09:00 | NUR ---
RN NOTES ORDERED, CHEST WAS CLAMP. NO AIR LEAKS, NO BUBBLES ON WATER SEAL. NO SOB, SPO2 99% ROOM AIR. PATIENT UP WALKING USING WALKER, TOLERATED WELL, NO SOB.
[2017-08-20] MEDS: MORPHINE SULFATE INJ 4 MG/ML DISP.SYRIN IV PRN ×3 (09:33→22:08)
--- NOTE | 2017-08-20 11:15 | NUR ---
RN NOTES VERIFIED WITH MARTINEZ YANCEY, OKAY TO DISCONNECT CHEST TUBE WITH CLAMP ONTO PLEUROVAC. PER PA, SHE WILL COME AND EVALUATE THE PATIENT TONIGHT.
[2017-08-20 16:00] VITALS: BP 143/68
[2017-08-20] MEDS: prednisoLONE ACET 1% OPHT DROP 5 ML BOTTLE RIGHTEYE SCH (18:00)
[2017-08-20] MEDS: KETOROLAC EYE 0.5% 3 ML BOTTLE RIGHTEYE SCH (18:01)
--- NOTE | 2017-08-20 19:35 | NUR ---
MS WEN OPENING NOTES. RECEIVED PATIENT IN BED, ALERT ORIENTED X 4. DENIES SOB, NO SIGNS OF DISTRESS OR DISCOMFORT NOTED AT THIS TIME. RESPIRATIONS EVEN AND UNLABORED. PATIENT WITH CHEST TUBE THAT IS CLAMP ONTO PLEUROVAC. AWARE. AWAITING FOR EVALUATION. RAC 20 G HL AND L HAND 18 G HL, PATENT AND INTACT. PATIENT KEPT CLEAN AND COMFORTABLE. SAFETY MEASURES IN PLACE. BED IN LOW LOCKED POSITION, SIDE RAILS UPX2, CALL LIGHT WITHIN EASY REACH. WILL CONTINUE TO MONITOR. Addendum: 08/21/17 at 0003 by STELLA STARKS RN RIGHT HAND 18 G HL.
--- NOTE | 2017-08-20 19:42 | NUR ---
RN CLOSING NOTES PATIENT IN BED RESTING. NO ACUTE DISTRESS, NO SOB NOTED. DENIES PAIN OR DISCOMFORT AT THIS TIME. ALL NEEDS ATTENDED AND PROVIDED. KEPT PATIENT SAFE AND COMFORTABLE. BED IN LOW/LOCKED POSITION, SIDERAILS UPX2. CALL LIGHT IN REACH. ENDORSED TO NIGHT RN FOR SUZIE.
[2017-08-20 20:00] VITALS: BP 137/73
[2017-08-21] MEDS: TIMOLOL 0.5% SOLN OPHTH 5 ML BOTTLE EACHEYE SCH (06:00)
--- NOTE | 2017-08-21 07:15 | NUR ---
MS RN CLOSING NOTES PATIENT IN BED, ALERT ORIENTED X 4. DENIES SOB, NO SIGNS OF DISTRESS OR DISCOMFORT NOTED AT THIS TIME. RESPIRATIONS EVEN AND UNLABORED. PATIENT CHEST TUBE REMOVED AND DISCHARGED AT 0700 BY JOHN PARIKH. RAC 20 G HL AND L HAND 18 G HL, PATENT AND INTACT. PATIENT KEPT CLEAN AND COMFORTABLE. SAFETY MEASURES IN PLACE. BED IN LOW LOCKED POSITION, SIDE RAILS UPX2, CALL LIGHT WITHIN EASY REACH. WILL ENDORSE TO AM NURSE FOR CONTINUATION OF CARE.
[2017-08-21 08:00] VITALS: BP 139/86
--- NOTE | 2017-08-21 08:00 | NUR ---
MS WEN AM NOTES. RECEIVED PATIENT IN BED, ALERT ORIENTED X 4. DENIES PAIN AND SOB, NO SIGNS OF DISTRESS OR DISCOMFORT NOTED AT THIS TIME. RESPIRATIONS EVEN AND UNLABORED. CHEST TUBE REMOVED BY DR FORD AT 0700 WITH NO BLEEDING ON THE SITE. RAC 20 G HL AND L HAND 18 G HL, PATENT AND INTACT. PATIENT KEPT CLEAN AND COMFORTABLE. SAFETY MEASURES IN PLACE. BED IN LOW LOCKED POSITION, SIDE RAILS UPX2, CALL LIGHT WITHIN EASY REACH. WILL CONTINUE TO MONITOR.
[2017-08-21 16:00] VITALS: BP 151/76
--- NOTE | 2017-08-21 16:30 | NUR ---
DISCHARGED HOME ACCOMPANIED BY HIS WITH STABLE V/S.DISCHARGE INSTRUCTIONS AND MED RECONCILIATION GIVEN TO THE PT.IV H/L REMOVED TO RT AC AND RT HAND WITH NO BLEEDING NOTED.PT DENIES ANY PAIN OR DISTRESS.CALL LIGHT PLACED WITHIN REACH.
== END 2017-08-21 16:31 | disposition home or self-care (01) | DRG 166 ==
LOC: ER 16:56 → TELE 19:57 → MED 08-16 08:36 → ICU 08-17 17:04 → TELE 08-18 16:12 → MED 08-19 09:16
PROVIDERS: ADMIT Nurse Practitioner Acute Care; ATTEND Nurse Practitioner Acute Care
PROC: 0W9B40Z Drainage of Left Pleural Cavity with Drainage Device, Percutaneous Endoscopic Approach (ICD-10-PCS; 2017-08-17)
PROC: 3E0L4GC Introduction of Other Therapeutic Substance into Pleural Cavity, Percutaneous Endoscopic Approach (ICD-10-PCS; 2017-08-17)
PROC: 03HY32Z Insertion of Monitoring Device into Upper Artery, Percutaneous Approach (ICD-10-PCS; 2017-08-17)
PROC: 0BBP4ZX Excision of Left Pleura, Percutaneous Endoscopic Approach, Diagnostic (ICD-10-PCS; principal; 2017-08-17 16:32)
DX: J90 Pleural effusion, not elsewhere classified (principal); N17.0 Acute kidney failure with tubular necrosis; I50.32 Chronic diastolic (congestive) heart failure; I11.0 Hypertensive heart disease with heart failure; L03.115 Cellulitis of right lower limb; L03.116 Cellulitis of left lower limb; D63.8 Anemia in other chronic diseases classified elsewhere; H40.9 Unspecified glaucoma; E03.9 Hypothyroidism, unspecified
CPT/HCPCS: 36415; 71045-TC; 80048-TC; 80053-TC; 80061-TC; 83735-TC; 83880; 84100-TC; 84443-TC; 84484-TC; 85025-TC; 85610-TC; 85730-TC; 86850-TC; 86880-TC; 87070-TC; 87075-TC; 87081-TC; 88305-TC; 88312-TC; 88342; 94799-TC; A4217; A4606; A6253; A6402; A6403; C1751; J1100; J1885; J2270; J2405; J2704; J2710; J3010; J3480; J3490; J7050; Z7610

== ENCOUNTER 2017-08-25 10:40 | Outpatient (CLI) | payer MEDICARE, BC ==
[~2017-08-25 10:40] MED LIST changes: -CLIN300C11 PO
== END 2017-08-25 23:59 | disposition home or self-care (01) ==
LOC: RAD 10:40
DX: J98.4 Other disorders of lung (principal)
CPT/HCPCS: 71046

== ENCOUNTER 2017-09-07 08:07 | Outpatient (CLI) | payer MEDICARE, BC | END 2017-09-07 23:59 | disposition home or self-care (01) | LOC: LAB 08:07 | DX: K57.30 Diverticulosis of large intestine without perforation or abscess without bleeding (principal); R16.1 Splenomegaly, not elsewhere classified; I70.0 Atherosclerosis of aorta; K40.20 Bilateral inguinal hernia, without obstruction or gangrene, not specified as recurrent; N40.0 Benign prostatic hyperplasia without lower urinary tract symptoms | CPT/HCPCS: 71046 ==

== ENCOUNTER 2017-10-13 08:44 | Outpatient (CLI) | payer MEDICARE, BC | END 2017-10-13 23:59 | disposition home or self-care (01) | LOC: RAD 08:44 | PROVIDERS: ATTEND Internal Medicine Pulmonary Disease | DX: J44.9 Chronic obstructive pulmonary disease, unspecified (principal); J84.89 Other specified interstitial pulmonary diseases; I70.0 Atherosclerosis of aorta | CPT/HCPCS: 71046 ==

== ENCOUNTER 2017-10-30 08:07 | Outpatient (CLI) | payer MEDICARE, BC | END 2017-10-30 23:59 | disposition home or self-care (01) | LOC: CT 08:07 | DX: K57.30 Diverticulosis of large intestine without perforation or abscess without bleeding (principal); K40.20 Bilateral inguinal hernia, without obstruction or gangrene, not specified as recurrent; N40.0 Benign prostatic hyperplasia without lower urinary tract symptoms; I70.0 Atherosclerosis of aorta; R59.0 Localized enlarged lymph nodes; M46.06 Spinal enthesopathy, lumbar region ==

== ENCOUNTER 2017-11-25 08:19 | Outpatient (CLI) | payer MEDICARE, BC | END 2017-11-25 23:59 | disposition home or self-care (01) | LOC: US 08:19 | DX: N28.1 Cyst of kidney, acquired (principal); N40.0 Benign prostatic hyperplasia without lower urinary tract symptoms; R16.1 Splenomegaly, not elsewhere classified; J90 Pleural effusion, not elsewhere classified | CPT/HCPCS: 76700-TC; 76870-TC ==

== ENCOUNTER 2018-01-02 07:37 | Emergency (ER) | payer MEDICARE, BC ==
[~2018-01-02] VITALS: Ht 172.7 cm; Wt 78.5 kg
--- NOTE | 2018-01-02 07:40 | NUR ---
AAOX3, CAME TO ER C/O R LOWER BACK PAIN RADIATES TO R LOWER ABDOMINAL PAIN SINCE LAST NIGHT. RR IS EVEN AND UNLABORED WITH NAD NOTED. SKIN IS WARM AND DRY. AWAITING MD FOR EVAL.
[2018-01-02] MEDS ORDERED: KETOROLAC TROMETHAMINE INJ 30 MG/ML VIAL IV ONE (08:00)
[2018-01-02] MEDS ORDERED: IV NS 0.9% 1,000 ML BAG IV ONE (08:00)
[2018-01-02] MEDS ORDERED: KETOROLAC TROMETHAMINE 15 MG/ML VIAL ONE (08:03)
--- NOTE | 2018-01-02 08:16 | NUR ---
urine specimen obtined labeled and sent to lab .
--- NOTE | 2018-01-02 08:19 | NUR ---
TRANSFERED TO CT DEPATMENT FOR CT ABDOMEN AND PELVIS WITHOUT CONTRAST , COLLIN
[2018-01-02 08:21] LABS: BASOPHILS % (AUTO) 0.5 % (0.0-2.0); EOSINOPHILS % (AUTO) 3.2 % (0.0-6.0); HEMATOCRIT 28 % (39-51); HEMOGLOBIN 9.3 g/dL (13.5-17.5); LYMPHOCYTES # (AUTO) 0.7 /CMM (0.8-4.8); LYMPHOCYTES % (AUTO) 24.7 % (20.0-44.0); MEAN CORPUSCULAR HEMOGLOBIN 33 PG (26.0-33.0); MEAN CORPUSCULAR HGB CONC 33 g/dl (31.0-36.0); MEAN CORPUSCULAR VOLUME 99 fL (80-96); MONOCYTES # (AUTO) 0.3 /CMM (0.1-1.30); MONOCYTES % (AUTO) 9.8 % (2.0-12.0); NEUTROPHILS # (AUTO) 1.8 /CMM (1.8-8.9); NEUTROPHILS % (AUTO) 61.8 % (43.0-81.0); PLATELET COUNT (AUTO) 143 /CMM (150-450); RDW COEFFICIENT OF VARIATION 15.2 (11.5-15.0); RED BLOOD CELL COUNT(AUTO) 2.85 MIL/uL (4.5-6.0)
[2018-01-02 08:22] LABS: APPEARANCE,URINE CLEAR (CLEAR); BILIRUBIN,URINE NEGATIVE (NEGATIVE); BLOOD, URINE NEGATIVE Ery/uL (NEGATIVE); COLOR,URINE YELLOW (YELLOW); KETONES,URINE NEGATIVE (NEGATIVE); LEUKOCYTE ESTERASE ,URINE NEGATIVE (NEGATIVE); NITRITE, URINE NEGATIVE (NEGATIVE); PROTEIN,URINE NEGATIVE (NEGATIVE); UGLUCOSE NEGATIVE (NEGATIVE); UROBILINOGEN,URINE 0.2 EU/dL (0.2)
[2018-01-02 08:36] LABS: ALANINE AMINOTRANSFERASE 27 U/L (12-78); ALBUMIN 3.4 g/dL (3.4-5.0); ALKALINE PHOSPHATASE 77 U/L (46-116); ASPARTATE AMINOTRANSFERASE 26 U/L (15-37); BILIRUBIN,DIRECT 0.2 mg/dL (0.0-0.2); BILIRUBIN,TOTAL 0.8 mg/dL (0.2-1.0); CALCIUM, SERUM 8.8 mg/dL (8.5-10.1); CARBON DIOXIDE 26 mmol/L (21-32); CHLORIDE 108 mmol/L (98-107); CREATININE 1.5 mg/dL (0.6-1.3); GLUCOSE 98 mg/dL (74-106); LIPASE 211 U/L (73-393); POTASSIUM 3.8 mmol/L (3.5-5.1); SODIUM SERUM 141 mmol/L (136-145); TOTAL PROTEIN, SERUM 6.9 g/dL (6.4-8.2); UREA NITROGEN, BLOOD 23 mg/dL (7-18)
[2018-01-02 08:38] LABS: TROPONIN I < 0.017 ng/mL (0.00-0.056)
[2018-01-02 09:08] VITALS: BP 142/55
== END 2018-01-02 09:10 | disposition home or self-care (01) ==
LOC: ER 07:40
DX: R10.30 Lower abdominal pain, unspecified (principal); I11.0 Hypertensive heart disease with heart failure; I50.9 Heart failure, unspecified; Z98.890 Other specified postprocedural states; Z88.1 Allergy status to other antibiotic agents; Z88.2 Allergy status to sulfonamides; Z88.6 Allergy status to analgesic agent; Z88.8 Allergy status to other drugs, medicaments and biological substances
CPT/HCPCS: 36415; 74176; 80048; 80076; 81001; 83690; 84484; 85025; 96374; 99285; A4606; J1885; J7030; 81000-TC; Z7610

== ENCOUNTER 2018-01-28 10:00 | Emergency (ER) | payer MEDICARE, BC ==
[~2018-01-28] VITALS: Ht 172.7 cm; Wt 79.4 kg
[2018-01-28] MEDS ORDERED: CLINDAMYCIN HCL 150 MG CAPSULE PO ONE (10:44)
[2018-01-28 10:48] LABS: BASOPHILS % (AUTO) 0.3 % (0.0-2.0); EOSINOPHILS % (AUTO) 1.4 % (0.0-6.0); HEMATOCRIT 30 % (39-51); LYMPHOCYTES # (AUTO) 0.6 /CMM (0.8-4.8); LYMPHOCYTES % (AUTO) 13.8 % (20.0-44.0); MEAN CORPUSCULAR HEMOGLOBIN 32 PG (26.0-33.0); MEAN CORPUSCULAR HGB CONC 34 g/dl (31.0-36.0); MEAN CORPUSCULAR VOLUME 95 fL (80-96); MONOCYTES # (AUTO) 0.4 /CMM (0.1-1.30); NEUTROPHILS # (AUTO) 3.5 /CMM (1.8-8.9); NEUTROPHILS % (AUTO) 76.5 % (43.0-81.0); PLATELET COUNT (AUTO) 143 /CMM (150-450); RDW COEFFICIENT OF VARIATION 14.5 (11.5-15.0); WHITE BLOOD COUNT (AUTO) 4.6 K/uL (4.3-11.0)
[2018-01-28] MEDS: CLINDAMYCIN HCL 150 MG CAPSULE PO ONE (10:54)
--- NOTE | 2018-01-28 10:55 | NUR ---
US TECH AT BS.
[2018-01-28 11:07] LABS: CALCIUM, SERUM 8.9 mg/dL (8.5-10.1); CARBON DIOXIDE 27 mmol/L (21-32); CHLORIDE 108 mmol/L (98-107); CREATININE 1.4 mg/dL (0.6-1.3); GLUCOSE 103 mg/dL (74-106); POTASSIUM 4.8 mmol/L (3.5-5.1); SODIUM SERUM 140 mmol/L (136-145); UREA NITROGEN, BLOOD 25 mg/dL (7-18)
[2018-01-28 11:15] LABS: TROPONIN I < 0.017 ng/mL (0.00-0.056)
[2018-01-28 11:22] LABS: B-TYPE NATRIURETIC PEPTIDE 771 PG/ML (0-125)
--- NOTE | 2018-01-28 12:06 | NUR ---
AT DISCUSSING DIAGNOSIS TO PT.
--- NOTE | 2018-01-28 12:09 | NUR ---
Patient discharged to home in stable condition. Written and verbal after care instructions given. Patient verbalizes understanding of instruction.
[2018-01-28 12:12] VITALS: BP 149/71
== END 2018-01-28 12:13 | disposition home or self-care (01) ==
LOC: ER 10:01
DX: L03.115 Cellulitis of right lower limb (principal); R60.0 Localized edema; Z98.890 Other specified postprocedural states; Z88.1 Allergy status to other antibiotic agents; Z88.0 Allergy status to penicillin; Z88.2 Allergy status to sulfonamides; Z88.6 Allergy status to analgesic agent; Z88.8 Allergy status to other drugs, medicaments and biological substances
CPT/HCPCS: 36415; 71045-TC; 80048-TC; 83880; 84484-TC; 85025-TC; 93970-TC; A4606; Z7610

== ENCOUNTER 2018-09-18 15:41 | Inpatient (IN) | payer MEDICARE, BC ==
[~2018-09-18] VITALS: Ht 172.7 cm; Wt 81.2 kg
--- NOTE | 2018-09-18 16:00 | NUR ---
RLQ ABDOMINAL, DIZZY. MIDSTERNAL CHEST PAIN X 3 DAYS AND WORST TODAY. PT AAOX4, VSS. SPEAKING FLUENTLY, NO NEURO DEFICIT @ THIS TIME. DENIES SOB, N/V, WEAKNESS @ THIS TIME. PLACED ON RESTAURANT AREA DIRECTOR, SR. AWAITING EVAL BY ANASTASIA/PA. WILL CONT TO MONITOR.
[2018-09-18 16:50] LABS: BASOPHILS % (AUTO) 0.9 % (0.0-2.0); EOSINOPHILS % (AUTO) 2.6 % (0.0-6.0); HEMATOCRIT 33 % (39-51); HEMOGLOBIN 11.1 g/dL (13.5-17.5); LYMPHOCYTES # (AUTO) 0.9 /CMM (0.8-4.8); LYMPHOCYTES % (AUTO) 20.5 % (20.0-44.0); MEAN CORPUSCULAR HGB CONC 33 g/dl (31.0-36.0); MEAN CORPUSCULAR VOLUME 94 fL (80-96); MONOCYTES # (AUTO) 0.4 /CMM (0.1-1.30); MONOCYTES % (AUTO) 10.2 % (2.0-12.0); NEUTROPHILS # (AUTO) 2.7 /CMM (1.8-8.9); NEUTROPHILS % (AUTO) 65.8 % (43.0-81.0); PLATELET COUNT (AUTO) 147 /CMM (150-450); RED BLOOD CELL COUNT(AUTO) 3.53 MIL/uL (4.5-6.0); WHITE BLOOD COUNT (AUTO) 4.2 K/uL (4.3-11.0)
[2018-09-18 16:57] LABS: CALCIUM, SERUM 8.8 mg/dL (8.5-10.1); CARBON DIOXIDE 29 mmol/L (21-32); CHLORIDE 104 mmol/L (98-107); CREATININE 1.4 mg/dL (0.6-1.3); GLUCOSE 117 mg/dL (74-106); SODIUM SERUM 138 mmol/L (136-145); UREA NITROGEN, BLOOD 20 mg/dL (7-18)
--- NOTE | 2018-09-18 18:12 | NUR ---
PT SITTING UP, RESTING. DENIES CP, SOB, DIZZINESS, ABD PAIN, N/V @ THIS TIME. ON CORPORATE ASSOCIATE ATTORNEY, NO ECTOPY NOTED. WILL CONT TO MONITOR. @ BS.
--- NOTE | 2018-09-18 18:50 | NUR ---
CALLED NURSING SUP. FOR TELE BED
--- NOTE | 2018-09-18 19:03 | NUR ---
EPIC PAGED, AEMT
--- NOTE | 2018-09-18 19:24 | NUR ---
[facility] REPAGED
--- NOTE | 2018-09-18 19:57 | NUR ---
TELE 324-2
[2018-09-18 20:00] VITALS: BP 169/88
[2018-09-18] MEDS ORDERED: MORPHINE SULFATE INJ 2 MG/ML DISP.SYRIN IV ONE (20:00)
[2018-09-18] MEDS ORDERED: IV NS 0.9% 1,000 ML IV PRN (20:27)
[2018-09-18] MEDS ORDERED: ACETAMINOPHEN 325 MG TABLET PO PRN (20:30)
[2018-09-18] MEDS ORDERED: HYDROCODONE/APAP 5/325MG 1 EACH TABLET PO PRN (20:30)
[2018-09-18] MEDS ORDERED: MORPHINE SULFATE INJ 2 MG/ML DISP.SYRIN IV PRN (20:30)
[2018-09-18] MEDS ORDERED: ONDANSETRON HCL/PF 4 MG/2 ML VIAL IVP PRN (20:30)
[2018-09-18] MEDS ORDERED: ZOLPIDEM TARTRATE 5 MG TABLET PO PRN (20:30)
[2018-09-18] MEDS ORDERED: MAGNESIUM HYDROXIDE 30 ML UDC PO PRN (20:30)
[2018-09-18] MEDS ORDERED: Z GUARD REMEDY 2 OZ OINT TP PRN (20:30)
[2018-09-18] MEDS ORDERED: MAG HYDROX/AL HYDROX/SIMETH 30 ML UDC PO PRN (20:30)
--- NOTE | 2018-09-18 20:31 | NUR ---
REPORT GIVEN TO WEN BASSETT AT MS3 FOR CONT OF CARE.
--- NOTE | 2018-09-18 20:45 | NUR ---
TEACHER HEARING IMPAIRED NOTES PATIENT ARRIVED ON THE UNIT AT 2034. PATIENT HAS NO SIGNS OF RESPIRATORY DISTRESS. PATIENT DENIES SHORTNESS OF BREATH AT THIS TIME. PATIENT HAS IV SITE: RAC G 20. INTACT AND PATENT. SAFETY PRECAUTIONS IMPLEMENTED. CALL LIGHT WITHIN REACH. WILL CONTINUE TO MONITOR PATIENT THROUGHOUT THE SHIFT.
[2018-09-18 21:00] VITALS: BP 169/88
[2018-09-19] VITALS: BP 152/73
--- NOTE | 2018-09-19 01:56 | NUR ---
RN NOTES PATIENT REFUSES IV FLUIDS NS 0.9%. FLUIDS ARE DISCONTINUED.
--- NOTE | 2018-09-19 02:42 | NUR ---
RN NOTES PATIENT REFUSED BLOOD DRAW FOR CBC, BMP, MAGNESIUM, PHOSPHORUS, LIPID PANEL, ABGS, HBA1C, TROPONIN I. CHARGE NURSE AWARE. LABORATORY IS AWARE. LABORATORY WILL TRY AGAIN AT 0600.
[2018-09-19 04:38] VITALS: BP 158/78
[2018-09-19] MEDS ORDERED: hydrALAZINE HCL 25 MG TABLET PO PRN (05:00)
[2018-09-19 05:49] VITALS: BP 158/78
--- NOTE | 2018-09-19 06:17 | NUR ---
RN CLOSING NOTES PATIENT IS RESTING COMFORTABLY IN BED. A/O X4. NO SIGNS OF RESPIRATORY DISTRESS. PATIENT DENIES SHORTNESS OF BREATH. PATIENT DENIES PAIN AT THIS TIME. IV SITE: RAC 20G INTACT AND PATENT. ALL NEEDS MET AT THIS TIME. SAFETY PRECAUTIONS IMPLEMENTED. CALL LIGHT WITHIN REACH. WILL ENDORSE TO MORNING SHIFT AT BEDSIDE.
--- NOTE | 2018-09-19 07:39 | NUR ---
MS RN OPENING NOTES RECEIVED PT IN BED, AWAKE, A/O X4. DENIES PAIN. TOLERATING RA, WITH NO ACUTE RESPIRATORY DISTRESS NOTED. IVF OF NS AT 75 ML/HR TO RAC; PT REFUSE TO HAVE IT ON. RECEIVED REPORT PT REFUSED FOR DRY CELL BATTERY ASSEMBLER TO DRAW BLOOD THIS MORNING WELL AND PT STATING HE'S OKAY AND READY TO GO HOME, HE SAW THE DOCTOR AND HE TOLD THE DOCTOR HE'S GOING HOME TODAY. PT EDUCATED REGARDING MD ROUNDS AND CONSULTS THAT WILL BE DONE TODAY AND WAIT FOR PLAN OF CARE. PT ON TELEMONITORING BUT REFUSED TO HAVE IT ON WELL. PT KNOWS HOW TO MAKE NEEDS KNOWN. BED IN LOWEST, LOCKED POSITION WITH SR X 2. WILL CONTINUE PLAN OF CARE. Addendum: 09/19/18 at 0806 by BRET NI RN WINDROWER OPERATOR OPENING NOTES
[2018-09-19 09:33] VITALS: BP 176/95
[2018-09-19 09:36] LABS: BASOPHILS # (AUTO) 0.1 /CMM (0.0-0.2); BASOPHILS % (AUTO) 1.2 % (0.0-2.0); EOSINOPHILS % (AUTO) 2.3 % (0.0-6.0); HEMATOCRIT 38 % (39-51); HEMOGLOBIN 12.6 g/dL (13.5-17.5); LYMPHOCYTES # (AUTO) 0.9 /CMM (0.8-4.8); LYMPHOCYTES % (AUTO) 20.8 % (20.0-44.0); MEAN CORPUSCULAR HGB CONC 33 g/dl (31.0-36.0); MEAN CORPUSCULAR VOLUME 95 fL (80-96); MONOCYTES # (AUTO) 0.4 /CMM (0.1-1.30); MONOCYTES % (AUTO) 7.9 % (2.0-12.0); NEUTROPHILS # (AUTO) 3.1 /CMM (1.8-8.9); NEUTROPHILS % (AUTO) 67.8 % (43.0-81.0); PLATELET COUNT (AUTO) 176 /CMM (150-450); WHITE BLOOD COUNT (AUTO) 4.5 K/uL (4.3-11.0)
[2018-09-19 09:55] LABS: CALCIUM, SERUM 9.2 mg/dL (8.5-10.1); CARBON DIOXIDE 26 mmol/L (21-32); CHLORIDE 105 mmol/L (98-107); CHOLESTEROL 192 mg/dL (<200); CREATININE 1.3 mg/dL (0.6-1.3); GLUCOSE 116 mg/dL (74-106); HDL CHOLESTEROL 45 mg/dL (40-60); LDL 131 mg/dL (0-99); PHOSPHORUS 3.7 mg/dL (2.5-4.9); POTASSIUM 3.9 mmol/L (3.5-5.1); SODIUM SERUM 141 mmol/L (136-145); TRIGLYCERIDES 121 mg/dL (30-150); UREA NITROGEN, BLOOD 20 mg/dL (7-18)
[2018-09-19 10:04] LABS: MAGNESIUM 2.2 mg/dL (1.8-2.4)
--- NOTE | 2018-09-19 11:50 | NUR ---
Respiratory notes Pt refused ordered ABG. states he wants to go home
--- NOTE | 2018-09-19 12:54 | NUR ---
MASKING MACHINE OPERATOR NOTES PT A/O X4; TO DISCHARGED TO HOME ACCOMPANIED BY SPOUSE. DENIES PAIN OR ANY DISCOMFORT. BREATHING EVEN AND UNLABORED. REVIEWED AND SIGNED DISCHARGE INSTRUCTIONS WITH PT AND . INVENTORY LIST SIGNED BY PT AND ALL BELONGINGS WERE WITH THE PT. VS STABLE AND RECORDED. ALL NEEDS AND CARE PROVIDED. PT ACCOMPANIED BY LEFT THE UNIT AT 1250 AND REFUSED TO BE ESCORTED TO THE LOBBY VIA WHEELCHAIR. CN AND M1 ARMOR CREWMAN AWARE.
== END 2018-09-19 13:00 | disposition home or self-care (01) | DRG 393 ==
LOC: ER 15:44 → TELE 20:16
PROVIDERS: ADMIT Internal Medicine; ATTEND Internal Medicine
DX: I88.0 Nonspecific mesenteric lymphadenitis (principal); N17.0 Acute kidney failure with tubular necrosis; I50.32 Chronic diastolic (congestive) heart failure; I13.0 Hypertensive heart and chronic kidney disease with heart failure and stage 1 through stage 4 chronic kidney disease, or unspecified chronic kidney disease; D69.6 Thrombocytopenia, unspecified; D63.8 Anemia in other chronic diseases classified elsewhere; H40.9 Unspecified glaucoma; Z88.1 Allergy status to other antibiotic agents; Z88.5 Allergy status to narcotic agent; Z88.0 Allergy status to penicillin; Z88.2 Allergy status to sulfonamides; I70.0 Atherosclerosis of aorta; Z98.890 Other specified postprocedural states; N18.9 Chronic kidney disease, unspecified; D72.819 Decreased white blood cell count, unspecified
CPT/HCPCS: 36415; 70450-TC; 71045-TC; 71250-TC; 80048-TC; 80061-TC; 83605-TC; 83735-TC; 84100-TC; 84484-TC; 85025-TC; 87081-TC; G0378; J7030

== ENCOUNTER 2019-01-31 06:55 | Emergency (ER) | payer MEDICARE, BC ==
[~2019-01-31] VITALS: Ht 172.7 cm; Wt 79.4 kg
[~2019-01-31 06:55] MED LIST changes: -KETO5DRO83 RIGHTEYE; -PRED1DRO RIGHTEYE
--- NOTE | 2019-01-31 07:05 | NUR ---
TO BED 2 BIB C/O CHEST PAIN, SOB, ABDOMINAL PAIN WITH N/V SINCE LAST NIGHT. PT AAOX4 NO ACUTE DISTRESS NOTED, RESP EVEN AND UNLABORED. PLACE PT ON CARDIAC MONITORING, CONTINUOUS POX. ER MD AT BEDSIDE TO EVAL PT WITH ORDERS RECEIVED. WILL CARRY OUT ORDERS.
[2019-01-31 07:17] LABS: BASOPHILS % (AUTO) 0.4 % (0.0-2.0); EOSINOPHILS % (AUTO) 2.3 % (0.0-6.0); HEMATOCRIT 36 % (39-51); LYMPHOCYTES # (AUTO) 0.8 /CMM (0.8-4.8); LYMPHOCYTES % (AUTO) 14.8 % (20.0-44.0); MEAN CORPUSCULAR HGB CONC 34 g/dl (31.0-36.0); MEAN CORPUSCULAR VOLUME 94 fL (80-96); MONOCYTES # (AUTO) 0.4 /CMM (0.1-1.30); MONOCYTES % (AUTO) 6.6 % (2.0-12.0); NEUTROPHILS # (AUTO) 4.2 /CMM (1.8-8.9); NEUTROPHILS % (AUTO) 75.9 % (43.0-81.0); PLATELET COUNT (AUTO) 141 /CMM (150-450); RED BLOOD CELL COUNT(AUTO) 3.84 MIL/uL (4.5-6.0); WHITE BLOOD COUNT (AUTO) 5.5 K/uL (4.3-11.0)
--- NOTE | 2019-01-31 07:19 | NUR ---
REPORT GIVEN TO AM NIKO BEDOLLA.
[2019-01-31] MEDS ORDERED: MORPHINE SULFATE INJ 2 MG/ML DISP.SYRIN ONE (07:26)
[2019-01-31] MEDS ORDERED: MORPHINE SULFATE INJ 2 MG/ML DISP.SYRIN IV ONE (07:30)
[2019-01-31 07:36] LABS: CALCIUM, SERUM 9.3 mg/dL (8.5-10.1); CARBON DIOXIDE 25 mmol/L (21-32); CHLORIDE 104 mmol/L (98-107); CREATININE 1.4 mg/dL (0.6-1.3); GLUCOSE 110 mg/dL (74-106); SODIUM SERUM 140 mmol/L (136-145); UREA NITROGEN, BLOOD 18 mg/dL (7-18)
[2019-01-31 07:39] LABS: ALBUMIN 3.5 g/dL (3.4-5.0); BILIRUBIN,DIRECT 0.2 mg/dL (0.0-0.2); BILIRUBIN,TOTAL 0.7 mg/dL (0.2-1.0); TOTAL PROTEIN, SERUM 7.1 g/dL (6.4-8.2)
[2019-01-31 07:51] LABS: B-TYPE NATRIURETIC PEPTIDE 718 PG/ML (0-125)
[2019-01-31] MEDS ORDERED: IV NS 0.9% 500 ML BAG IV ONE (08:00)
[2019-01-31] MEDS ORDERED: IOHEXOL-350 100 ML VIAL IV ONE (08:06)
[2019-01-31] MEDS ORDERED: CT SWABBABLE VALVE TRANS SET 1 EA INFUS.SET MC ONE (08:06)
[2019-01-31] MEDS ORDERED: IV NS 0.9% 250 ML IV ONE (08:07)
--- NOTE | 2019-01-31 08:15 | NUR ---
PT TO CT AT THIS TIME
[2019-01-31] MEDS ORDERED: PRED5DRO17 RIGHTEYE (08:54)
[2019-01-31 09:06] LABS: APPEARANCE,URINE Clear (CLEAR); BILIRUBIN,URINE Negative (NEGATIVE); BLOOD, URINE Trace-intact Ery/uL (NEGATIVE); COLOR,URINE Yellow (YELLOW); KETONES,URINE Negative (NEGATIVE); LEUKOCYTE ESTERASE ,URINE Negative (NEGATIVE); NITRITE, URINE Negative (NEGATIVE); PH,URINE 7.5 (5.0-8.0); PROTEIN,URINE Negative (NEGATIVE); UGLUCOSE Negative (NEGATIVE); UROBILINOGEN,URINE 0.2 EU/dL (0.2)
[2019-01-31 09:15] LABS: BACTERIA,URINE None seen /HPF (None Seen); SQUAMOUS EPITHELIAL CELL,UR Few /HPF (None Seen); WBC,URINE 0-2 /HPF (0-3)
--- NOTE | 2019-01-31 10:26 | NUR ---
RN NOTES PT'S STATED THAT PT WANTS TO GO HOME . HE DOES NOTE WANT TO BE ADMITTED TO THE HOSPITAL . ER NOTIFED .
--- NOTE | 2019-01-31 10:28 | NUR ---
CALLED FOR TELE BED.
--- NOTE | 2019-01-31 10:49 | NUR ---
Patient left the hospital AMA ambulatory accompnaied by his . R PRATEEK OMSES G 18 D/FRANCISCA.
--- NOTE | 2019-01-31 10:52 | NUR ---
Patient does not wish to proceed with medical care recommended by Dr. Suarez. Patient given information related to possible complications, up to and including , which could occur as a result of leaving the hospital at this time. Patient verbalizes understanding of risks involved due to leaving against medical advice. Patient has signed AMA form.
--- NOTE | 2019-01-31 10:52 | NUR ---
IV removed. Catheter intact and site benign. Pressure and 4x4 applied to site. No bleeding noted.
[2019-01-31 10:54] VITALS: BP 154/82
== END 2019-01-31 10:55 | disposition left against medical advice (07) ==
LOC: ER 06:57
DX: R10.31 Right lower quadrant pain (principal); R10.84 Generalized abdominal pain; R07.89 Other chest pain; I10 Essential (primary) hypertension; Z98.890 Other specified postprocedural states; Z88.0 Allergy status to penicillin; Z88.8 Allergy status to other drugs, medicaments and biological substances; Z88.2 Allergy status to sulfonamides; Z88.5 Allergy status to narcotic agent
CPT/HCPCS: 36415; 71045; 71275; 74174; 80048; 80076; 81001; 83690; 83880; 84484; 85025; 85730; 93005 ×2; 96374; 99284; J2270; J7050; Q9967; 81000-TC

== ENCOUNTER 2022-02-17 15:36 | Emergency (ER) | payer BC, MEDICARE, OTHER ==
[~2022-02-17] VITALS: Ht 172.7 cm; Wt 81.6 kg
[~2022-02-17 15:36] MED LIST changes: +PRED5DRO17 RIGHTEYE
[2022-02-17] MEDS ORDERED: CIPR-262 PO (17:12)
--- NOTE | 2022-02-17 17:29 | NUR ---
Patient discharged to home in stable condition. Prescription given to patient. Written and verbal after care instructions given. Patient verbalizes understanding of instruction.
[2022-02-17 17:33] VITALS: BP 148/80
== END 2022-02-17 17:34 | disposition home or self-care (01) ==
LOC: ER 15:53
DX: L03.116 Cellulitis of left lower limb (principal); L03.115 Cellulitis of right lower limb; I10 Essential (primary) hypertension; Z98.890 Other specified postprocedural states; Z88.0 Allergy status to penicillin; Z88.1 Allergy status to other antibiotic agents; Z88.6 Allergy status to analgesic agent; Z88.2 Allergy status to sulfonamides; Z79.899 Other long term (current) drug therapy
CPT/HCPCS: 73610-TC

== ENCOUNTER 2022-02-21 14:08 | Emergency (ER) | payer OTHER ==
[~2022-02-21] VITALS: Ht 170.2 cm; Wt 83.5 kg
[~2022-02-21 14:08] MED LIST changes: +CIPR-262 PO
--- NOTE | 2022-02-21 14:16 | NUR ---
CALLED CODE STROKE [id number]
--- NOTE | 2022-02-21 14:17 | NUR ---
TYRA FROM [facility] [employer] FOR DIZZINESS STARTED 2HOURS AGO. PT STATED THAT HE FELT DIZZY WHEN HE WOKE UP THIS MORNING TOOK HIS MEDICAITON, TOOK A NAP, AND THEN WENT THE STORE. wHILE HE WAS AT THE STORE HE FELT DIZZY AGAIN AND SEEING DOUBLE AND THEN LOWERED HIMSELF TO THE FLOOR. PT ATTACHED TO MONITOR, DR TERRELL AT BEDSIDE.
--- NOTE | 2022-02-21 14:18 | NUR ---
IV ESTABLISHED L AC 18G. LABS DRAWN AND COLLECTED.
[2022-02-21 14:30] LABS: BASOPHILS % (AUTO) 0.7 % (0.0-2.0); HEMATOCRIT 32 % (39-51); HEMOGLOBIN 10.4 g/dL (13.5-17.5); LYMPHOCYTES # (AUTO) 0.8 K/uL (0.8-4.8); LYMPHOCYTES % (AUTO) 18.5 % (20.0-44.0); MEAN CORPUSCULAR HGB CONC 33 g/dl (31.0-36.0); MEAN CORPUSCULAR VOLUME 88 fL (80-96); MONOCYTES # (AUTO) 0.3 K/uL (0.1-1.30); MONOCYTES % (AUTO) 5.8 % (2.0-12.0); NEUTROPHILS # (AUTO) 3.3 K/uL (1.8-8.9); PLATELET COUNT (AUTO) 205 K/uL (150-450); RED BLOOD CELL COUNT(AUTO) 3.62 MIL/uL (4.5-6.0); WHITE BLOOD COUNT (AUTO) 4.6 K/uL (4.3-11.0)
[2022-02-21 14:40] LABS: CALCIUM, SERUM 8.5 mg/dL (8.5-10.1); CARBON DIOXIDE 26 mmol/L (21-32); CHLORIDE 104 mmol/L (98-107); CREATININE 1.6 mg/dL (0.6-1.3); GLUCOSE 150 mg/dL (74-106); POTASSIUM 3.9 mmol/L (3.5-5.1); SODIUM SERUM 139 mmol/L (136-145); UREA NITROGEN, BLOOD 16 mg/dL (7-18)
--- NOTE | 2022-02-21 15:01 | NUR ---
covid antigen swab done and sent to the lab
[2022-02-21] MEDS ORDERED: MECLIZINE HCL 25 MG TABLET ONE (15:09)
[2022-02-21] MEDS ORDERED: ONDANSETRON HCL/PF 4 MG/2 ML VIAL ONE (15:09)
[2022-02-21] MEDS ORDERED: MECLIZINE HCL 12.5 MG TABLET PO ONE (15:30)
[2022-02-21] MEDS ORDERED: ONDANSETRON HCL/PF - ER 4 MG/2 ML VIAL IV ONE (15:30)
[2022-02-21] MEDS ORDERED: ASPIRIN 81 MG TAB.CHEW PO ONE (16:00)
[2022-02-21] MEDS ORDERED: MECL-159 PO (16:08)
[2022-02-21] MEDS ORDERED: ASPIRIN 81 MG TAB.CHEW ONE (16:15)
--- NOTE | 2022-02-21 16:26 | NUR ---
PT SIGNED AGAINST MEDICAL ADVICE, PT EXPLAINED THE RISKS OF LEAVING BY DR TERRELL AND UNDERSTOOD. PT ULTIMATELY DECIDED HE DID NOT WANT TO STAY OVERNIGHT IN A HOSPITAL.
[2022-02-21 16:28] VITALS: BP 187/106
== END 2022-02-21 16:28 | disposition left against medical advice (07) ==
LOC: ER 14:18
DX: R42 Dizziness and giddiness (principal); I12.9 Hypertensive chronic kidney disease with stage 1 through stage 4 chronic kidney disease, or unspecified chronic kidney disease; N18.9 Chronic kidney disease, unspecified; I45.10 Unspecified right bundle-branch block; L03.116 Cellulitis of left lower limb; L03.115 Cellulitis of right lower limb; Z20.822 Contact with and (suspected) exposure to COVID-19; Z53.29 Procedure and treatment not carried out because of patient's decision for other reasons; Z79.899 Other long term (current) drug therapy; Z88.1 Allergy status to other antibiotic agents; Z88.5 Allergy status to narcotic agent; Z88.2 Allergy status to sulfonamides; H40.9 Unspecified glaucoma
CPT/HCPCS: 99291; 70450; 87426; 93005; 71045; 85025; 80048; 87040 ×2; 83605; 36415; 84484; 85730; 82962; J8597; J2405 ×2; C9803

== ENCOUNTER 2022-08-07 20:48 | Inpatient (IN) | payer OTHER ==
[~2022-08-07] VITALS: Ht 170.2 cm; Wt 88.9 kg
[~2022-08-07 20:48] MED LIST changes: +MECL-159 PO; -PRED5DRO17 RIGHTEYE
--- NOTE | 2022-08-07 21:09 | NUR ---
RECEIVED PATIENT AAOX4. ABLE TO MAKE NEEDS KNOWN. PATIENT CAME WITH IV MING ON LEFT AC G18. WITH BILATERAL LEG SWELLING. PATIENT CAME ON NON REBREATHER BAG AT 15LPM SATS 100%. REMOVED, SATS 96 ON RA. SHIFTED TO NASAL MING AT 2LPM SATURATING 100%.
--- NOTE | 2022-08-07 21:11 | NUR ---
SEEN BY DR SWENSON AT BEDSIDE
--- NOTE | 2022-08-07 21:29 | NUR ---
FOREIGN LANGUAGES PROFESSOR AT BEDSIDE
--- NOTE | 2022-08-07 21:29 | NUR ---
COVID SWAB DONE AND SENT TO LAB
[2022-08-07 21:49] LABS: BASOPHILS % (AUTO) 0.2 % (0.0-2.0); EOSINOPHILS % (AUTO) 0.1 % (0.0-6.0); HEMATOCRIT 30 % (39-51); HEMOGLOBIN 9.4 g/dL (13.5-17.5); LYMPHOCYTES # (AUTO) 0.4 K/uL (0.8-4.8); LYMPHOCYTES % (AUTO) 2.7 % (20.0-44.0); MEAN CORPUSCULAR HGB CONC 31 g/dl (31.0-36.0); MEAN CORPUSCULAR VOLUME 88 fL (80-96); MONOCYTES # (AUTO) 0.3 K/uL (0.1-1.30); MONOCYTES % (AUTO) 2.1 % (2.0-12.0); NEUTROPHILS # (AUTO) 14.8 K/uL (1.8-8.9); NEUTROPHILS % (AUTO) 94.9 % (43.0-81.0); PLATELET COUNT (AUTO) 194 K/uL (150-450); RED BLOOD CELL COUNT(AUTO) 3.42 MIL/uL (4.5-6.0); WHITE BLOOD COUNT (AUTO) 15.6 K/uL (4.3-11.0)
[2022-08-07 22:00] LABS: CALCIUM, SERUM 8.7 mg/dL (8.5-10.1); CARBON DIOXIDE 25 mmol/L (21-32); CHLORIDE 105 mmol/L (98-107); CREATININE 1.3 mg/dL (0.6-1.3); GLUCOSE 144 mg/dL (74-106); POTASSIUM 4.3 mmol/L (3.5-5.1); SODIUM SERUM 138 mmol/L (136-145); UREA NITROGEN, BLOOD 23 mg/dL (7-18)
--- NOTE | 2022-08-07 22:02 | NUR ---
BROUGHT TO CT DEPT
[2022-08-07 22:14] LABS: ALANINE AMINOTRANSFERASE 30 U/L (12-78); ALBUMIN 2.8 g/dL (3.4-5.0); ALKALINE PHOSPHATASE 93 U/L (46-116); ASPARTATE AMINOTRANSFERASE 55 U/L (15-37); BILIRUBIN,DIRECT 0.5 mg/dL (0.0-0.2); BILIRUBIN,TOTAL 0.9 mg/dL (0.2-1.0); TOTAL PROTEIN, SERUM 6.2 g/dL (6.4-8.2)
[2022-08-07] MEDS ORDERED: FUROSEMIDE 40 MG/4 ML VIAL ONE (22:24)
[2022-08-07] MEDS ORDERED: FUROSEMIDE 40 MG/4 ML VIAL IV ONE (22:30)
[2022-08-07] MEDS ORDERED: LIDOCAINE 2% JEL UROJET 10 ML MM ONE (22:33)
--- NOTE | 2022-08-07 22:51 | NUR ---
IFC F16 INSERTED THEN ATTACHED TO UROBAG. URINE SPECIMEN SENT TO LAB
[2022-08-07 23:06] LABS: BILIRUBIN,URINE NEGATIVE (NEGATIVE); COLOR,URINE YELLOW (YELLOW); LEUKOCYTE ESTERASE ,URINE NEGATIVE (NEGATIVE); NITRITE, URINE NEGATIVE (NEGATIVE); PROTEIN,URINE TRACE mg/dl (NEGATIVE); UGLUCOSE NEGATIVE (NEGATIVE); UROBILINOGEN,URINE 0.2 EU/dL (0.2)
--- NOTE | 2022-08-07 23:13 | NUR ---
CLINICAL REPORT GIVEN TO EDWARD RICHARDS [phone] LEELA HDEZ FOR TRANSFER AWAITING CALL BACK FROM FOR ACCEPTANCE
[2022-08-07 23:20] LABS: BACTERIA,URINE Rare /HPF (None Seen); RBC,URINE 0-2 /HPF (0-2); SQUAMOUS EPITHELIAL CELL,UR Rare /HPF (None Seen); WBC,URINE NONE SEEN /HPF (0-3)
--- NOTE | 2022-08-07 23:42 | NUR ---
PATIENT CAME BACK FROM CT DEPT AFTER CT GARRICK ANGIO
--- NOTE | 2022-08-07 23:59 | NUR ---
BEN () [phone]. CALL EVERY SHIFT FOR UPDATES.
--- NOTE | 2022-08-08 02:57 | NUR ---
PATIENT IS AGITATED. HE WANTS TO GO UP TO HIS ROOM. HE WANTS TO GO HOME IF NO ROOM WILL BE PROVIDED FOR HIM. EXPLAINED TO PATIENT THAT IT IS NOT SAFE FOR HIM TO GO HOME AT THE MOMENT BECAUSE OF HIS HEART CONDITION.
--- NOTE | 2022-08-08 02:58 | NUR ---
1,400ML OF URINE OUTPUT DISPOSED.
--- NOTE | 2022-08-08 03:19 | NUR ---
CALLED OF PATIENT AND INFORMED HER THAT PATIENT WANTS TO GO HOME. WILL COME TO CONVINCE PATIENT TO STAY.
--- NOTE | 2022-08-08 03:30 | NUR ---
CALLED TO FOLLOW UP WITH ELECTRON TUBE ASSEMBLER.
--- NOTE | 2022-08-08 03:44 | NUR ---
AT BEDSIDE. TRYING TO CONVINCE PATIENT TO STAY. NEEDS ATTENDED.
[2022-08-08] MEDS ORDERED: LORAZEPAM INJ 2 MG/ML VIAL ONE (03:51)
[2022-08-08] MEDS ORDERED: LORAZEPAM INJ 2 MG/ML VIAL IV ONE (04:00)
--- NOTE | 2022-08-08 05:07 | NUR ---
followed up with admitting regarding pt's authorization for admission. at this time still no authorization is obtained from the medical group. awaiting call back.
--- NOTE | 2022-08-08 06:59 | NUR ---
followed up once again with rn case mgr, still no answer.
--- NOTE | 2022-08-08 07:06 | NUR ---
DR. PULLIAM TALKED TO DR. MOSHER. PER THEIR CONVERSATION, PT IS OK TO BE ADMITTED. TAXICAB COORDINATOR STILL HAVENT CALLED BACK SINCE THE CASE HAS BEEN INITIATED.
--- NOTE | 2022-08-08 07:15 | NUR ---
RECEIVED PT FROM DAMARIS RN PT ASLEEPY NO SOB
[2022-08-08] MEDS ORDERED: FOLI0.4T6 PO (07:47)
[2022-08-08] MEDS ORDERED: METH2.5T PO (07:47)
[2022-08-08] MEDS ORDERED: ALBU90AE2 INH (07:47)
--- NOTE | 2022-08-08 08:39 | NUR ---
BED 293-1
--- NOTE | 2022-08-08 08:53 | NUR ---
REPORT GIVEN TO DOMINIK CARVER OF TELE UNIT
--- NOTE | 2022-08-08 09:26 | NUR ---
TO ROOM 326-1 VIA GARNY STABLE VS NO SOB OR CHEST PAIN
[2022-08-08] MEDS ORDERED: ACETAMINOPHEN 325 MG TABLET PO PRN (09:30)
[2022-08-08 10:00] VITALS: BP 146/96
[2022-08-08] MEDS ORDERED: ALBUTEROL FS 2.5 MG/3 ML VIAL.NEB NEB PRN ×2 (10:00→10:06)
--- NOTE | 2022-08-08 10:00 | NUR ---
RECREATION PROFESSORAUTOMATED LOGISTICS SPECIALIST NOTES RECEIVED PATIENT FROM ER ENDORSED BY WEN NOLASCO VIA ELIZABETH. PATIENT IS AWAKE AND A.O X3-4. ON O2 AT 2LPM VIA NASAL CANNULA TOLERATING WELL. NO SOB NOTED. NOT IN DISTRESS. WITH IV ACCESS AT THE LEFT AC G18 SALINE LOCKED, PATENT AND INTACT. ON TELE MONITOR CURRENTLY READING A-FIB AT 140BPM. SKIN ASSESSMENT DONE WITH PHOTOS TAKEN AND PLACED ON CHART. WITH JAVED CATHETER IN PLACED. CALL LIGHT WITHIN REACH. BED ON LOWEST LOCKED POSITION, SIDE RAILS UP X2. WILL CONTINUE TO MONITOR.
--- NOTE | 2022-08-08 10:30 | NUR ---
RN NOTES PATIENT TELE MONITOR READING UNCONTROLLED A-FIB AT 160BPM. WITH STABLE VITAL SIGNS. PATIENT IS AWAKE AND A/O X3-4. WILL MONITOR VITAL SIGNS.
[2022-08-08] MEDS: FUROSEMIDE 40 MG/4 ML VIAL IV SCH (10:54)
--- NOTE | 2022-08-08 11:00 | NUR ---
RN NOTE WITH STABLE VITAL SIGNS. TELE MONITOR READING SINUS TACHYCARDIA WITH PACs AT 106BPM. WILL CONTINUE TO MONITOR.
--- NOTE | 2022-08-08 11:15 | NUR ---
RN NOTE TELE MONITOR READING SINUS RHYTHM WITH PACs AT 97BPM.
[2022-08-08 12:00] VITALS: BP 139/86
--- NOTE | 2022-08-08 15:15 | NUR ---
RN NOTE SENT PLEURAL FLUID SPECIMEN TO LAB FOR LAB STUDIES.
[2022-08-08 16:00] VITALS: BP 149/78
[2022-08-08] MEDS: TIMOLOL 0.5% SOLN OPHTH 5 ML BOTTLE EACHEYE SCH (16:20)
--- NOTE | 2022-08-08 18:18 | NUR ---
ASTRONAUT MISSION SPECIALIST CLOSING NOTES PATIENT SITTING ON CHAIR, AWAKE AND A/O X3. ON O2 AT 2LPM VIA NASAL CANNULA TOLERATING WELL. NO SOB NOTED. NOT IN DISTRESS. WITH IV ACCESS AT THE LEFT AC G18 SALINE LOCKED, PATENT AND INTACT. ON TELE MONITOR CURRENTLY READING SINUS RHYTHM WITH PACs AT 94BPM. WITH JAVED CATHETER IN PLACED DRAINING CLEAR MORALES URINE. DUE MEDS GIVEN. CALL LIGHT WITHIN REACH. BED ON LOWEST LOCKED POSITION, SIDE RAILS UP X2. WILL ENDORSE TO NEXT SHIFT FOR SUZIE.
--- NOTE | 2022-08-08 18:50 | NUR ---
RN NOTE REPORTED TO DR. MOSHER VIA PHONE CALL ABOUT PATIENT HAVING A-FIB 1T 160BPM AND ORDERED METOPROLOL 50MG 1 TAB BID PO AND DIGOXIN 0.25MG IV ONCE. ORDERS CARRIED OUT.
[2022-08-08] MEDS ORDERED: METOPROLOL TARTRATE 50 MG TABLET PO SCH (19:00)
[2022-08-08] MEDS ORDERED: DIGOXIN INJ 0.5 MG/2 ML AMPUL IV ONE (19:00)
--- NOTE | 2022-08-08 19:30 | NUR ---
COMPUTER AIDED DESIGN OPERATOR OPENING NOTE RECEIVED PATIENT FROM AM NURSE; PATIENT IS ALERT AND ORIENTED X 2-3; ON NASAL CANNULA 2 LPM TOLERATING WELL AND NO RESPIRATORY DISTRESS NOTED; WITH IV ACCESS ON LAC G18 SALINE LOCK, INTACT; HOOKED TO JAVED CATHETER DRAINING TO YELLOW COLORED URINE; VITAL SIGNS TAKEN; SAFETY PRECAUTIONS IMPLEMENTED, BED IN LOW POSITION, LOCKED, SIDE RAILS UP X 3, CALL LIGHT WITHIN REACH; WILL CONTINUE TO MONITOR THROUGHOUT SHIFT
[2022-08-08 20:00] VITALS: BP 151/72
[2022-08-08] MEDS: APIXABAN 5 MG TABLET PO SCH (20:25)
[2022-08-08] MEDS ORDERED: ZOLPIDEM TARTRATE 5 MG TABLET PO PRN (20:30)
[2022-08-08] MEDS ORDERED: METOPROLOL TARTRATE 50 MG TABLET PO ONE (20:30)
[2022-08-08] MEDS ORDERED: METOPROLOL TARTRATE 25 MG TABLET PO SCH (21:00)
[2022-08-08] MEDS: METOPROLOL TARTRATE 25 MG TABLET PO SCH (22:27)
[2022-08-09 04:00] VITALS: BP 130/81
--- NOTE | 2022-08-09 04:30 | NUR ---
FEEDER WORKER POWER UNIT OPERATOR NOTE CHARGE NURSE AND DR MOSHER MADE AWARE OF THE RESTRAINTS
--- NOTE | 2022-08-09 04:30 | NUR ---
INTERNET SALES DIRECTOR NOTE PATIENT WAS CONFUSED, KEPT ON GETTING OUT OF BED AND PULLING THE JAVED CATHETER MANY TIMES, PUT SOFT WRIST RESTRAINTS ON PATIENT, CHECKED FROM TIME TO TIME AND RELEASED WHEN POSSIBLE; CHECKED SKIN AND RESTRAINTS EVERY HOUR
[2022-08-09 06:29] LABS: BASOPHILS % (AUTO) 0.2 % (0.0-2.0); EOSINOPHILS % (AUTO) 0.5 % (0.0-6.0); HEMATOCRIT 29 % (39-51); HEMOGLOBIN 9.4 g/dL (13.5-17.5); LYMPHOCYTES # (AUTO) 0.8 K/uL (0.8-4.8); LYMPHOCYTES % (AUTO) 7.9 % (20.0-44.0); MEAN CORPUSCULAR HGB CONC 32 g/dl (31.0-36.0); MEAN CORPUSCULAR VOLUME 88 fL (80-96); MONOCYTES # (AUTO) 0.5 K/uL (0.1-1.30); MONOCYTES % (AUTO) 4.9 % (2.0-12.0); NEUTROPHILS # (AUTO) 8.4 K/uL (1.8-8.9); NEUTROPHILS % (AUTO) 86.5 % (43.0-81.0); PLATELET COUNT (AUTO) 180 K/uL (150-450); RED BLOOD CELL COUNT(AUTO) 3.33 MIL/uL (4.5-6.0); WHITE BLOOD COUNT (AUTO) 9.7 K/uL (4.3-11.0)
--- NOTE | 2022-08-09 06:43 | NUR ---
PACKING HOUSE SUPERVISOR CLOSING NOTE PATIENT IS ALERT AND ORIENTED X 2-3; ON NASAL CANNULA 2 LPM TOLERATING WELL AND NO RESPIRATORY DISTRESS NOTED; HOOKED TO ETHNIC STUDIES PROFESSOR CURRENTLY READING ATRIAL FIBRILLATION 110-120S BPM; WITH IV ACCESS ON LAC G18 SALINE LOCK, INTACT; JAVED CATHETER IN PLACE DRAINING TO YELLOW COLORED URINE; ADMINISTERED MEDICATIONS ORDERED; PATIENT'S NEEDS ATTENDED; MONITORED PATIENT ACCORDINGLY; SAFETY PRECAUTIONS IMPLEMENTED, BED IN LOW POSITION, LOCKED, SIDE RAILS UP X 3, CALL LIGHT WITHIN REACH; WILL ENDORSE TO AM NURSE FOR SUZIE.
[2022-08-09 06:59] LABS: THYROID STIMULATING HORMONE 3.601 uIU/mL (0.358-3.74)
--- NOTE | 2022-08-09 07:55 | NUR ---
RN OPENING NOTE RECEIVED PATIENT IN BED, AO X 3. ABLE TO RESPONDS ALL STIMULI. RESPIRATORY EVEN AND UNLABORED ON OXYGEN AT 2 Ls VIA NC. IN NO ACUTE DISTRESS OBSERVED. HR 100 TO 105 WITH A-FIB AT THIS TIME. SKIN IS WARM TO TOUCH, KEEP CLEAN/DRY. KEPT ELEVATED HOB FOR ASPIRATION PRECAUTION/ENSURE AIRWAY, ALSO LOWEST BED POSITIONED. BED ALARM IS ON AT ALL THE TIME FOR SAFETY. CALL LIGHT WITHIN REACH, WILL CONTINUE TO MONITOR.
[2022-08-09 08:00] VITALS: BP 136/88
[2022-08-09] MEDS ORDERED: FURO-145 PO (08:12)
[2022-08-09] MEDS ORDERED: APIX5TAB PO (08:12)
[2022-08-09] MEDS ORDERED: DIGO125T PO (08:12)
[2022-08-09] MEDS ORDERED: POTA10TA PO (08:12)
[2022-08-09] MEDS ORDERED: METO25TA20 PO (08:12)
[2022-08-09] MEDS: TIMOLOL 0.5% SOLN OPHTH 5 ML BOTTLE EACHEYE SCH (08:51)
[2022-08-09 08:52] VITALS: BP 136/88
[2022-08-09] MEDS: METOPROLOL TARTRATE 25 MG TABLET PO SCH (08:52)
[2022-08-09] MEDS: FUROSEMIDE 40 MG/4 ML VIAL IV SCH (08:52)
[2022-08-09] MEDS: APIXABAN 5 MG TABLET PO SCH (08:54)
[2022-08-09] MEDS ORDERED: DIGOXIN 0.125 MG TABLET PO SCH (09:00)
--- NOTE | 2022-08-09 10:50 | NUR ---
PATIENT D/C TO THE HOME, AND GIVEN DISCHARGE INSTRUCTIONS TO THE INCLUDE NEW MEDICATIONS, FOLLOW UP PCP CARDIOLOGY IN ONE WEEK. THE PATIENT IN STABLE CONDITION, NO SOB, WHEEZING OR RESPIRATORY O2SAT 99% IN ROOM AIR, IN NO DISTRESS OBSERVED. REMOVED JAVED AND IV LINE BEFORE PATIENT LEAVE. PATIENT LEFT FACILITY ESCORTED BY STAFF TO THE PRIVATE CAR WITH WHEEL CHAIR.
== END 2022-08-09 10:55 | disposition home or self-care (01) | DRG 280 ==
LOC: ER 20:54 → TELE 08-08 09:39
PROVIDERS: ADMIT Internal Medicine; ATTEND Internal Medicine
PROC: 0W993ZX Drainage of Right Pleural Cavity, Percutaneous Approach, Diagnostic (ICD-10-PCS; principal; 2022-08-08)
DX: I11.0 Hypertensive heart disease with heart failure (principal); I50.33 Acute on chronic diastolic (congestive) heart failure; I21.A1 Myocardial infarction type 2; J96.00 Acute respiratory failure, unspecified whether with hypoxia or hypercapnia; J90 Pleural effusion, not elsewhere classified; Z20.822 Contact with and (suspected) exposure to COVID-19; Z87.19 Personal history of other diseases of the digestive system; H40.9 Unspecified glaucoma; Z88.1 Allergy status to other antibiotic agents; Z88.5 Allergy status to narcotic agent; Z88.0 Allergy status to penicillin; Z88.8 Allergy status to other drugs, medicaments and biological substances; Z90.49 Acquired absence of other specified parts of digestive tract; Z98.890 Other specified postprocedural states; Z79.51 Long term (current) use of inhaled steroids; Z79.899 Other long term (current) drug therapy; D64.9 Anemia, unspecified; E88.09 Other disorders of plasma-protein metabolism, not elsewhere classified; I87.8 Other specified disorders of veins; Z87.09 Personal history of other diseases of the respiratory system; I48.0 Paroxysmal atrial fibrillation; Z88.2 Allergy status to sulfonamides
CPT/HCPCS: 36415; 71045-TC; 80048-TC; 80076-TC; 81001; 83880; 84443-TC; 84484-TC; 85025-TC; 85378-TC; 85610-TC; 85730-TC; 87081-TC; 88108-TC; 88305-TC; 88312-TC; 89051-TC; 93307-TC; A4349; C9803; G0378; J1160; J1940; J2060; J3490

== ENCOUNTER 2023-02-14 16:42 | Inpatient (IN) | payer OTHER ==
[~2023-02-14] VITALS: Ht 165.1 cm; Wt 79.8 kg
[~2023-02-14 16:42] MED LIST changes: +ALBU90AE2 INH; +APIX5TAB PO; -CIPR-262 PO; +DIGO125T PO; +FURO-145 PO; -MECL-159 PO; +METO25TA20 PO; +POTA10TA PO
[2023-02-14 18:11] LABS: BASOPHILS % (AUTO) 0.5 % (0.0-2.0); EOSINOPHILS # (AUTO) 0.1 K/uL (0.0-0.7); EOSINOPHILS % (AUTO) 1.2 % (0.0-6.0); HEMATOCRIT 31 % (39-51); HEMOGLOBIN 9.3 g/dL (13.5-17.5); LYMPHOCYTES # (AUTO) 0.5 K/uL (0.8-4.8); LYMPHOCYTES % (AUTO) 8.4 % (20.0-44.0); MEAN CORPUSCULAR HEMOGLOBIN 28 PG (26.0-33.0); MEAN CORPUSCULAR HGB CONC 30 g/dl (31.0-36.0); MEAN CORPUSCULAR VOLUME 93 fL (80-96); MONOCYTES # (AUTO) 0.3 K/uL (0.1-1.30); NEUTROPHILS # (AUTO) 4.7 K/uL (1.8-8.9); NEUTROPHILS % (AUTO) 83.9 % (43.0-81.0); PLATELET COUNT (AUTO) 258 K/uL (150-450); RED BLOOD CELL COUNT(AUTO) 3.29 MIL/uL (4.5-6.0); WHITE BLOOD COUNT (AUTO) 5.6 K/uL (4.3-11.0)
[2023-02-14 18:24] LABS: MAGNESIUM 2.7 mg/dL (1.8-2.4)
[2023-02-14 18:25] LABS: CALCIUM, SERUM 9.4 mg/dL (8.5-10.1); CARBON DIOXIDE 31 mmol/L (21-32); CHLORIDE 109 mmol/L (98-107); CREATININE 2.8 mg/dL (0.6-1.3); GLUCOSE 107 mg/dL (74-106); POTASSIUM 4.8 mmol/L (3.5-5.1); SODIUM SERUM 146 mmol/L (136-145); UREA NITROGEN, BLOOD 53 mg/dL (7-18)
[2023-02-14 18:33] LABS: DIGOXIN 2.65 ng/mL (0.90-2.00)
[2023-02-14 18:37] LABS: ALANINE AMINOTRANSFERASE 19 U/L (12-78); ALBUMIN 2.8 g/dL (3.4-5.0); ALKALINE PHOSPHATASE 84 U/L (46-116); ASPARTATE AMINOTRANSFERASE 28 U/L (15-37); BILIRUBIN,DIRECT 0.3 mg/dL (0.0-0.2); BILIRUBIN,TOTAL 0.6 mg/dL (0.2-1.0); NT-PRO BNP 6321 pg/mL (0-125); TOTAL PROTEIN, SERUM 6.8 g/dL (6.4-8.2)
[2023-02-14 18:44] LABS: INR 1.09 (0.91-1.10); PARTIAL THROMBOPLASTIN TIME 29.6 SEC (24.3-34.3); PROTHROMBIN TIME 11.4 SECS (9.2-11.1)
[2023-02-14] MEDS ORDERED: VANCOMYCIN 1.25 GM in IV D5W 500 ML IV ONE (22:00)
[2023-02-14] MEDS ORDERED: CEFEPIME 2 GM in IV D5W 100 ML IV SCH (22:00)
[2023-02-14] MEDS ORDERED: CEFEPIME 1 GM VIAL ONE (23:03)
[2023-02-14] MEDS ORDERED: FUROSEMIDE 40 MG/4 ML VIAL ONE (23:56)
[2023-02-14] MEDS ORDERED: LORAZEPAM INJ 2 MG/ML VIAL ONE (23:57)
[2023-02-15] MEDS ORDERED: LORAZEPAM INJ 2 MG/ML VIAL IV ONE
[2023-02-15] MEDS ORDERED: FUROSEMIDE 40 MG/4 ML VIAL IV ONE
[2023-02-15] MEDS ORDERED: VANCOMYCIN 1 GM /D5W 250 ML PB IV ONE (00:40)
[2023-02-15] MEDS ORDERED: VANCOMYCIN 500 MG VIAL ONE (00:43)
[2023-02-15] MEDS ORDERED: ACETAMINOPHEN 325 MG TABLET PO PRN (03:30)
[2023-02-15] MEDS ORDERED: ZOLPIDEM TARTRATE 5 MG TABLET PO PRN (03:30)
[2023-02-15] MEDS ORDERED: ALBUTEROL FS 2.5 MG/0.5 ML VIAL.NEB NEB PRN (03:30)
[2023-02-15 04:00] VITALS: BP 157/71; TEMP 97.7; O2SAT 100
[2023-02-15 06:12] LABS: CALCIUM, SERUM 9.3 mg/dL (8.5-10.1); CARBON DIOXIDE 23 mmol/L (21-32); CHLORIDE 111 mmol/L (98-107); CREATININE 2.7 mg/dL (0.6-1.3); GLUCOSE 109 mg/dL (74-106); POTASSIUM 4.9 mmol/L (3.5-5.1); SODIUM SERUM 142 mmol/L (136-145); UREA NITROGEN, BLOOD 55 mg/dL (7-18)
[2023-02-15 08:00] VITALS: BP 134/52; TEMP 98
[2023-02-15] MEDS ORDERED: METO25TA20 PO (08:06)
[2023-02-15] MEDS ORDERED: DIGOXIN 0.125 MG TABLET PO SCH (09:00)
[2023-02-15] MEDS ORDERED: POTASSIUM CHLORIDE 10 MEQ TABLET.SA PO SCH (09:00)
[2023-02-15] MEDS ORDERED: APIXABAN 5 MG TABLET PO SCH (09:00)
[2023-02-15] MEDS: METOPROLOL TARTRATE 25 MG TABLET PO SCH ×2 (09:00→20:49)
[2023-02-15 12:00] VITALS: BP 148/88; TEMP 98.4; O2SAT 98
[2023-02-15 16:00] VITALS: BP 128/58; TEMP 97.6; O2SAT 18
[2023-02-15 20:00] VITALS: BP 126/66; TEMP 97; O2SAT 96
[2023-02-15 20:08] LABS: BASOPHILS % (AUTO) 0.1 % (0.0-2.0); EOSINOPHILS # (AUTO) 0.1 K/uL (0.0-0.7); EOSINOPHILS % (AUTO) 1.5 % (0.0-6.0); HEMATOCRIT 27 % (39-51); HEMOGLOBIN 8.2 g/dL (13.5-17.5); LYMPHOCYTES # (AUTO) 0.3 K/uL (0.8-4.8); LYMPHOCYTES % (AUTO) 6.3 % (20.0-44.0); MEAN CORPUSCULAR HEMOGLOBIN 29 PG (26.0-33.0); MEAN CORPUSCULAR HGB CONC 31 g/dl (31.0-36.0); MEAN CORPUSCULAR VOLUME 92 fL (80-96); MONOCYTES # (AUTO) 0.3 K/uL (0.1-1.30); MONOCYTES % (AUTO) 5.7 % (2.0-12.0); NEUTROPHILS # (AUTO) 4.8 K/uL (1.8-8.9); NEUTROPHILS % (AUTO) 86.4 % (43.0-81.0); PLATELET COUNT (AUTO) 216 K/uL (150-450); RED BLOOD CELL COUNT(AUTO) 2.89 MIL/uL (4.5-6.0); RED CELL DISTRIBUTION WIDTH 17.5 % (11.5-15.0); WHITE BLOOD COUNT (AUTO) 5.5 K/uL (4.3-11.0)
[2023-02-15 21:20] LABS: ANISOCYTOSIS 1+; EOSINOPHILS % (MANUAL) 5 % (0-4); LYMPHOCYTES % (MANUAL) 11 % (16-48); MONOCYTES % (MANUAL) 3 % (0-11.0); NEUTROPHILS % (MANUAL) 81 (42-76); PLATELET ESTIMATE ADEQUATE
[2023-02-15 21:34] VITALS: BP 126/66; TEMP 97; O2SAT 96
[2023-02-16] VITALS: BP 132/54; TEMP 97; O2SAT 94
[2023-02-16 03:46] VITALS: BP 136/71; TEMP 97.9; O2SAT 95
[2023-02-16 06:26] LABS: BASOPHILS % (AUTO) 0.3 % (0.0-2.0); EOSINOPHILS # (AUTO) 0.1 K/uL (0.0-0.7); EOSINOPHILS % (AUTO) 1.3 % (0.0-6.0); HEMATOCRIT 27 % (39-51); HEMOGLOBIN 8.5 g/dL (13.5-17.5); LYMPHOCYTES # (AUTO) 0.3 K/uL (0.8-4.8); LYMPHOCYTES % (AUTO) 6.6 % (20.0-44.0); MEAN CORPUSCULAR HEMOGLOBIN 29 PG (26.0-33.0); MEAN CORPUSCULAR HGB CONC 31 g/dl (31.0-36.0); MEAN CORPUSCULAR VOLUME 92 fL (80-96); MONOCYTES # (AUTO) 0.3 K/uL (0.1-1.30); MONOCYTES % (AUTO) 5.7 % (2.0-12.0); NEUTROPHILS # (AUTO) 4.5 K/uL (1.8-8.9); NEUTROPHILS % (AUTO) 86.1 % (43.0-81.0); PLATELET COUNT (AUTO) 216 K/uL (150-450); RED BLOOD CELL COUNT(AUTO) 2.95 MIL/uL (4.5-6.0); RED CELL DISTRIBUTION WIDTH 17.7 % (11.5-15.0); WHITE BLOOD COUNT (AUTO) 5.3 K/uL (4.3-11.0)
[2023-02-16 06:47] LABS: CREATINE KINASE, TOTAL 25 U/L (39-308)
[2023-02-16 06:55] LABS: ALANINE AMINOTRANSFERASE 18 U/L (12-78); ALBUMIN 2.5 g/dL (3.4-5.0); ALKALINE PHOSPHATASE 74 U/L (46-116); ASPARTATE AMINOTRANSFERASE 20 U/L (15-37); BILIRUBIN,TOTAL 0.7 mg/dL (0.2-1.0); CALCIUM, SERUM 9.1 mg/dL (8.5-10.1); CARBON DIOXIDE 31 mmol/L (21-32); CHLORIDE 112 mmol/L (98-107); CREATININE 2.6 mg/dL (0.6-1.3); GLUCOSE 74 mg/dL (74-106); MAGNESIUM 2.7 mg/dL (1.8-2.4); PHOSPHORUS 5.6 mg/dL (2.5-4.9); POTASSIUM 4.4 mmol/L (3.5-5.1); SODIUM SERUM 148 mmol/L (136-145); TOTAL PROTEIN, SERUM 6.3 g/dL (6.4-8.2); UREA NITROGEN, BLOOD 53 mg/dL (7-18)
[2023-02-16 07:00] VITALS: BP 119/76; TEMP 97.5; O2SAT 97
[2023-02-16] MEDS: METOPROLOL TARTRATE 25 MG TABLET PO SCH ×2 (09:39→21:00)
[2023-02-16] MEDS ORDERED: POTASSIUM CL. PREMIX PERIPHER. 50 ML IV SCH (14:00)
[2023-02-16] MEDS ORDERED: Potassium Chloride 10 MEQ in IV D5/ 0.9% NACL 1,000 ML IV ONE (14:30)
[2023-02-16 16:00] VITALS: BP 146/72; TEMP 97.2; O2SAT 99
[2023-02-16 20:00] VITALS: BP_SYST 140; BP_SYST 148; BP_DIAS 75; BP_DIAS 83; TEMP 96.8; TEMP 97; O2SAT 94; O2SAT 97
[2023-02-17] VITALS (7 sets, daily range): BP systolic 130–148; BP diastolic 66–96; TEMP 97–98.6; O2SAT 92–99
[2023-02-17 07:04] LABS: BASOPHILS % (AUTO) 0.4 % (0.0-2.0); EOSINOPHILS # (AUTO) 0.1 K/uL (0.0-0.7); EOSINOPHILS % (AUTO) 0.9 % (0.0-6.0); HEMATOCRIT 29 % (39-51); HEMOGLOBIN 8.9 g/dL (13.5-17.5); LYMPHOCYTES # (AUTO) 0.5 K/uL (0.8-4.8); MEAN CORPUSCULAR HEMOGLOBIN 29 PG (26.0-33.0); MEAN CORPUSCULAR HGB CONC 31 g/dl (31.0-36.0); MEAN CORPUSCULAR VOLUME 93 fL (80-96); MONOCYTES # (AUTO) 0.4 K/uL (0.1-1.30); MONOCYTES % (AUTO) 6.9 % (2.0-12.0); NEUTROPHILS # (AUTO) 4.8 K/uL (1.8-8.9); NEUTROPHILS % (AUTO) 82.8 % (43.0-81.0); PLATELET COUNT (AUTO) 235 K/uL (150-450); RED BLOOD CELL COUNT(AUTO) 3.13 MIL/uL (4.5-6.0); RED CELL DISTRIBUTION WIDTH 17.7 % (11.5-15.0); WHITE BLOOD COUNT (AUTO) 5.8 K/uL (4.3-11.0)
[2023-02-17 07:22] LABS: CALCIUM, SERUM 9.4 mg/dL (8.5-10.1); CARBON DIOXIDE 27 mmol/L (21-32); CHLORIDE 113 mmol/L (98-107); CREATININE 2.6 mg/dL (0.6-1.3); GLUCOSE 102 mg/dL (74-106); POTASSIUM 4.4 mmol/L (3.5-5.1); SODIUM SERUM 149 mmol/L (136-145); UREA NITROGEN, BLOOD 53 mg/dL (7-18)
[2023-02-17 08:07] LABS: PTH, INTACT 22 pg/mL (15-65)
[2023-02-17] MEDS: METOPROLOL TARTRATE 25 MG TABLET PO SCH ×2 (08:59→21:00)
[2023-02-17 12:07] LABS: *SPE A/G RATIO 0.8 (0.7-1.7); *SPE ALBUMIN 2.6 g/dL (2.9-4.4); *SPE ALPHA-1-GLOBULIN 0.3 g/dL (0.0-0.4); *SPE ALPHA-2-GLOBULIN 0.7 g/dL (0.4-1.0); *SPE BETA GLOBULIN 0.9 g/dL (0.7-1.3); *SPE GLOBULIN, TOTAL 3.2 g/dL (2.2-3.9); *SPE M-SPIKE Not Observed g/dL (Not Observed); *SPE PROTEIN TOTAL 5.8 g/dL (6.0-8.5); *SPEGAMMA GLOBULIN 1.3 g/dL (0.4-1.8)
[2023-02-17] MEDS: MORPHINE SULFATE INJ 2 MG/ML DISP.SYRIN IV PRN (13:41)
[2023-02-17] MEDS: OLANZAPINE 10 MG VIAL IM PRN (14:23)
[2023-02-17] MEDS ORDERED: ZIPRASIDONE MESYLATE 20 MG/VIAL VIAL IM ONE (17:30)
[2023-02-18 00:50] VITALS: BP 138/88; TEMP 98.2; O2SAT 96
[2023-02-18 04:49] VITALS: BP 122/72; TEMP 98; O2SAT 96
[2023-02-18 06:49] LABS: BASOPHILS % (AUTO) 0.4 % (0.0-2.0); EOSINOPHILS % (AUTO) 0.3 % (0.0-6.0); HEMATOCRIT 29 % (39-51); LYMPHOCYTES # (AUTO) 0.5 K/uL (0.8-4.8); LYMPHOCYTES % (AUTO) 7.4 % (20.0-44.0); MEAN CORPUSCULAR HEMOGLOBIN 29 PG (26.0-33.0); MEAN CORPUSCULAR HGB CONC 31 g/dl (31.0-36.0); MEAN CORPUSCULAR VOLUME 94 fL (80-96); MONOCYTES # (AUTO) 0.5 K/uL (0.1-1.30); MONOCYTES % (AUTO) 6.6 % (2.0-12.0); NEUTROPHILS % (AUTO) 85.3 % (43.0-81.0); PLATELET COUNT (AUTO) 212 K/uL (150-450); RED CELL DISTRIBUTION WIDTH 17.7 % (11.5-15.0)
[2023-02-18 07:12] LABS: ALANINE AMINOTRANSFERASE 14 U/L (12-78); ALBUMIN 2.1 g/dL (3.4-5.0); ALKALINE PHOSPHATASE 65 U/L (46-116); ASPARTATE AMINOTRANSFERASE 22 U/L (15-37); BILIRUBIN,TOTAL 0.8 mg/dL (0.2-1.0); CALCIUM, SERUM 9.1 mg/dL (8.5-10.1); CARBON DIOXIDE 30 mmol/L (21-32); CHLORIDE 115 mmol/L (98-107); GLUCOSE 81 mg/dL (74-106); POTASSIUM 4.6 mmol/L (3.5-5.1); SODIUM SERUM 153 mmol/L (136-145); TOTAL PROTEIN, SERUM 5.7 g/dL (6.4-8.2); UREA NITROGEN, BLOOD 60 mg/dL (7-18)
[2023-02-18 08:00] VITALS: BP 130/92; TEMP 98.1; O2SAT 94
[2023-02-18] MEDS: METOPROLOL TARTRATE 25 MG TABLET PO SCH ×2 (09:05→21:00)
[2023-02-18] MEDS: IV D5W 1,000 ML IV SCH ×2 (09:55→22:50)
[2023-02-18] MEDS: MORPHINE SULFATE INJ 2 MG/ML DISP.SYRIN IV PRN (12:37)
[2023-02-18] MEDS: OLANZAPINE 10 MG VIAL IM PRN (14:59)
[2023-02-18 16:00] VITALS: BP 146/102; TEMP 98; O2SAT 94
[2023-02-18] MEDS ORDERED: LORAZEPAM INJ 2 MG/ML VIAL IV PRN (17:00)
[2023-02-18 20:00] VITALS: BP 122/63; TEMP 97.6; O2SAT 94
[2023-02-19] VITALS: BP 148/67; TEMP 97.8; O2SAT 93
[2023-02-19] MEDS: MORPHINE SULFATE INJ 2 MG/ML DISP.SYRIN IV PRN ×2 (00:59→13:36)
[2023-02-19 04:00] VITALS: BP 123/95; TEMP 97.5; O2SAT 84
[2023-02-19 04:05] VITALS: O2SAT 93
[2023-02-19 07:29] LABS: BASOPHILS % (AUTO) 0.7 % (0.0-2.0); EOSINOPHILS # (AUTO) 0.1 K/uL (0.0-0.7); EOSINOPHILS % (AUTO) 1.1 % (0.0-6.0); HEMATOCRIT 30 % (39-51); HEMOGLOBIN 9.1 g/dL (13.5-17.5); LYMPHOCYTES # (AUTO) 0.3 K/uL (0.8-4.8); LYMPHOCYTES % (AUTO) 5.7 % (20.0-44.0); MEAN CORPUSCULAR HEMOGLOBIN 29 PG (26.0-33.0); MEAN CORPUSCULAR HGB CONC 30 g/dl (31.0-36.0); MEAN CORPUSCULAR VOLUME 94 fL (80-96); MONOCYTES # (AUTO) 0.4 K/uL (0.1-1.30); MONOCYTES % (AUTO) 6.1 % (2.0-12.0); NEUTROPHILS # (AUTO) 5.2 K/uL (1.8-8.9); NEUTROPHILS % (AUTO) 86.4 % (43.0-81.0); PLATELET COUNT (AUTO) 195 K/uL (150-450); RED BLOOD CELL COUNT(AUTO) 3.18 MIL/uL (4.5-6.0); RED CELL DISTRIBUTION WIDTH 17.8 % (11.5-15.0); WHITE BLOOD COUNT (AUTO) 6.1 K/uL (4.3-11.0)
[2023-02-19 08:00] LABS: ALANINE AMINOTRANSFERASE 16 U/L (12-78); ALBUMIN 2.2 g/dL (3.4-5.0); ALKALINE PHOSPHATASE 68 U/L (46-116); ASPARTATE AMINOTRANSFERASE 25 U/L (15-37); BILIRUBIN,TOTAL 0.8 mg/dL (0.2-1.0); CALCIUM, SERUM 9.2 mg/dL (8.5-10.1); CARBON DIOXIDE 28 mmol/L (21-32); CHLORIDE 116 mmol/L (98-107); CREATININE 2.7 mg/dL (0.6-1.3); GLUCOSE 91 mg/dL (74-106); MAGNESIUM 2.8 mg/dL (1.8-2.4); PHOSPHORUS 4.7 mg/dL (2.5-4.9); POTASSIUM 4.1 mmol/L (3.5-5.1); SODIUM SERUM 154 mmol/L (136-145); TOTAL PROTEIN, SERUM 5.9 g/dL (6.4-8.2); UREA NITROGEN, BLOOD 60 mg/dL (7-18)
[2023-02-19] MEDS: METOPROLOL TARTRATE 25 MG TABLET PO SCH (08:14)
[2023-02-19 08:19] VITALS: BP 130/68; TEMP 97.7; O2SAT 96
[2023-02-19] MEDS ORDERED: MORPHINE SULFATE PF DRIP 100 MG in IV D5W 96 ML IV PRN (08:30)
== END 2023-02-19 14:30 | disposition hospice, inpatient (51) | DRG 291 ==
LOC: ER 16:49 → MED 02-15 00:08 → TELE 02-15 02:25
PROVIDERS: ADMIT Internal Medicine; ATTEND Internal Medicine
PROC: 05H533Z Insertion of Infusion Device into Right Subclavian Vein, Percutaneous Approach (ICD-10-PCS; 2023-02-16)
PROC: B546ZZA Ultrasonography of Right Subclavian Vein, Guidance (ICD-10-PCS; 2023-02-16)
PROC: 0W993ZZ Drainage of Right Pleural Cavity, Percutaneous Approach (ICD-10-PCS; principal; 2023-02-17)
DX: I13.0 Hypertensive heart and chronic kidney disease with heart failure and stage 1 through stage 4 chronic kidney disease, or unspecified chronic kidney disease (principal); I50.33 Acute on chronic diastolic (congestive) heart failure; J96.90 Respiratory failure, unspecified, unspecified whether with hypoxia or hypercapnia; G93.40 Encephalopathy, unspecified; N17.9 Acute kidney failure, unspecified; E46 Unspecified protein-calorie malnutrition; J91.8 Pleural effusion in other conditions classified elsewhere; R62.7 Adult failure to thrive; N18.9 Chronic kidney disease, unspecified; I48.0 Paroxysmal atrial fibrillation; D64.9 Anemia, unspecified; E66.01 Morbid (severe) obesity due to excess calories; H40.9 Unspecified glaucoma; Z66 Do not resuscitate; Z88.0 Allergy status to penicillin; Z88.2 Allergy status to sulfonamides; Z20.822 Contact with and (suspected) exposure to COVID-19; R53.1 Weakness; F03.90 Unspecified dementia, unspecified severity, without behavioral disturbance, psychotic disturbance, mood disturbance, and anxiety; E88.09 Other disorders of plasma-protein metabolism, not elsewhere classified; I87.2 Venous insufficiency (chronic) (peripheral); F09 Unspecified mental disorder due to known physiological condition; L89.616 Pressure-induced deep tissue damage of right heel; L89.890 Pressure ulcer of other site, unstageable; Z68.29 Body mass index [BMI] 29.0-29.9, adult; S41.112A Laceration without foreign body of left upper arm, initial encounter; S41.111A Laceration without foreign body of right upper arm, initial encounter; X58.XXXA Exposure to other specified factors, initial encounter; Y93.9 Activity, unspecified; Y92.89 Other specified places as the place of occurrence of the external cause; L89.156 Pressure-induced deep tissue damage of sacral region
CPT/HCPCS: 36410; 36415; 71045-TC; 76770-TC; 80048-TC; 80053-TC; 80076-TC; 80162-TC; 82550-TC; 83735-TC; 83880; 83970; 84100-TC; 84155; 84165; 84484-TC; 85025-TC; 85730-TC; 92526; 92611-TC; 94799-TC; A4217; A4223; A6253; A6403; C9803; G0378; J0692; J1940; J2060; J2270; J2274; J3370; J3480; J3486; J3490; J7042; J7060; J7070

== ENCOUNTER 2023-02-19 13:44 | Inpatient (IN) | payer OTHER ==
[~2023-02-19] VITALS: Ht 175.3 cm; Wt 79.8 kg
[2023-02-19] MEDS ORDERED: ONDANSETRON HCL/PF 4 MG/2 ML VIAL IVP PRN (14:30)
[2023-02-19] MEDS ORDERED: ACETAMINOPHEN 650 MG/SUPP.RECT RC PRN ×2 (14:30→15:27)
[2023-02-19] MEDS ORDERED: Z GUARD REMEDY 4 OZ OINT TP PRN (14:30)
[2023-02-19] MEDS ORDERED: PANTOPRAZOLE 40 MG VIAL IV SCH (14:30)
[2023-02-19] MEDS ORDERED: BISACODYL SUPP (10 MG) 10 MG/SUPP.RECT SUPP.RECT RC PRN (15:30)
[2023-02-19] MEDS ORDERED: SCOPOLAMINE PATCH 1 MG/72HR TD PRN (15:30)
[2023-02-19] MEDS ORDERED: ONDANSETRON 4 MG TAB.RAPDIS SL PRN (15:30)
[2023-02-19] MEDS ORDERED: ATROPINE SULFATE OPHTH SOLN 15 ML BOTTLE SL PRN ×2 (15:30→16:11)
[2023-02-19] MEDS ORDERED: LORAZEPAM INJ 2 MG/ML VIAL IV PRN (16:00)
[2023-02-19] MEDS ORDERED: MORPHINE SULFATE INJ 2 MG/ML DISP.SYRIN IV PRN (16:00)
[2023-02-19 16:25] VITALS: BP 132/69; TEMP 98.5; O2SAT 98
[2023-02-19] MEDS ORDERED: MORPHINE SULFATE SOLN CONCENTRATED 20 MG/ML PO PRN (16:30)
[2023-02-19] MEDS ORDERED: LORAZEPAM ORAL SOLN 2 MG/ML ORAL.CONC SL SCH (16:30)
[2023-02-19] MEDS ORDERED: LORAZEPAM ORAL SOLN 2 MG/ML ORAL.CONC SL PRN (16:30)
[2023-02-19] MEDS ORDERED: MORPHINE SULFATE SOLN CONCENTRATED 20 MG/ML SL SCH (16:30)
[2023-02-19] MEDS ORDERED: MORPHINE SULFATE SOLN CONCENTRATED 20 MG/ML SL PRN (16:31)
[2023-02-19 20:00] VITALS: BP 102/52; TEMP 98; O2SAT 92
[2023-02-19 21:01] VITALS: BP 102/52; TEMP 98; O2SAT 92
[2023-02-19] MEDS: LORAZEPAM ORAL SOLN 2 MG/ML ORAL.CONC SL SCH (23:14)
[2023-02-19] MEDS: MORPHINE SULFATE SOLN CONCENTRATED 20 MG/ML SL SCH (23:14)
[2023-02-20] MEDS: MORPHINE SULFATE SOLN CONCENTRATED 20 MG/ML SL SCH (03:06)
[2023-02-20] MEDS: LORAZEPAM ORAL SOLN 2 MG/ML ORAL.CONC SL SCH (03:06)
== END 2023-02-20 05:25 | DRG 862 ==
LOC: UNDOADMIN 13:44 → MED 13:44 → HOSPICE 13:44
PROVIDERS: ADMIT Nurse Practitioner Acute Care; ATTEND Nurse Practitioner Acute Care
DX: Z51.5 Encounter for palliative care (principal); J96.01 Acute respiratory failure with hypoxia; G93.41 Metabolic encephalopathy; E46 Unspecified protein-calorie malnutrition; I50.33 Acute on chronic diastolic (congestive) heart failure; J90 Pleural effusion, not elsewhere classified; E88.09 Other disorders of plasma-protein metabolism, not elsewhere classified; I48.0 Paroxysmal atrial fibrillation; I11.0 Hypertensive heart disease with heart failure; D64.9 Anemia, unspecified; R62.7 Adult failure to thrive; Z88.0 Allergy status to penicillin; Z88.2 Allergy status to sulfonamides; F01.50 Vascular dementia, unspecified severity, without behavioral disturbance, psychotic disturbance, mood disturbance, and anxiety; I87.2 Venous insufficiency (chronic) (peripheral); H40.9 Unspecified glaucoma; Z68.26 Body mass index [BMI] 26.0-26.9, adult
CPT/HCPCS: G0378; J2270; J2274; J7060